=== PATIENT | male | born 1955 | race Caucasian/White ===

== ENCOUNTER 2019-12-23 11:33 | Outpatient (CLI) | payer MEDICARE, SELFPAY ==
--- NOTE | 2019-12-23 12:45 | USCV_ITS ---
HernandezTristian luke Age: 64 Gender: M : 1955 Exam Date: 12/23/2019 11:55 Ordering Phys: Ivette Acevedo MD ([email or web address]) Technologist: Frieda Fernandes Exam Location: [facility] [place] Indication: PVD HISTORY: Lower extremity pain. PROCEDURES: Venous duplex imaging was performed in bilateral lower extremities. The following venous structures were evaluated: common femoral vein, profunda vein, proximal portion of the greater saphenous vein, superficial femoral vein, and the popliteal vein. In addition, the posterior tibial and peroneal trunk were evaluated. Serial compression, augmentation maneuvers, and spectral Doppler flow evaluation were performed. FINDINGS: Normal 2-D Doppler and augmentation and compressibility throughout the lower extremity venous structures. Additional imaging through the proximal calf veins also reveals no thrombus. Limited evaluation of the greater saphenous vein is patent with no thrombus. CONCLUSIONS No DVT bilateral lower extremities. Dr. Salma Najera DO (Electronically Signed) Final Date: 23 Dec 2019 13:18 S
== END 2019-12-23 11:34 | disposition home or self-care (01) ==
LOC: RAD 11:38
PROVIDERS: PCP Family Medicine; Visit Provider Internal Medicine Cardiovascular Disease
DX: I73.9 Peripheral vascular disease, unspecified (principal)
CPT/HCPCS: 93970

== ENCOUNTER 2019-12-25 09:18 | Outpatient (CLI) | payer MEDICARE, SELFPAY ==
--- NOTE | 2019-12-25 09:34 | USCV_ITS ---
Tristian Hernandez Age: 64 Gender: M : 1955 Exam Date: 12/25/2019 09:32 Ordering Phys: Ivette Acevedo MD ([email or web address]) Technologist: Kat Sebastian Exam Location: [facility] [place] Indication: PVD RIGHT LEFT Brachial 160.00 mmHg Brachial 150.00 mmHg Pressure (mmHg) Waveform Pressure (mmHg) Waveform 88.00 [employer] 88.00 105.00 DPA 81.00 0.66 Ankle/Brachial Index 0.55 FINDINGS Abnormal resting ABIs bilaterally CONCLUSIONS Abnormal resting ABIs bilaterally, consistent with a moderately severe peripheral arterial disease No similar previous studies available for comparison Dr Kae Morales MD [facility] (Electronically Signed) Final Date: 25 Dec 2019 11:00 S
== END 2019-12-25 09:19 | disposition home or self-care (01) ==
LOC: RAD 09:21
PROVIDERS: PCP Family Medicine; Visit Provider Internal Medicine Cardiovascular Disease
DX: I73.9 Peripheral vascular disease, unspecified (principal)
CPT/HCPCS: 93922

== ENCOUNTER 2020-02-25 08:18 | Outpatient (CLI) | payer MEDICARE, SELFPAY ==
--- NOTE | 2020-02-25 09:00 | CT_ITS ---
WS: [id number] CT scan of the abdominal aorta, its branches and the arteries of the lower extremities.. Additional t wo-dimensional coronal and sagittal reconstruction was performed. MIP images were also performed. 02/09 Clinical Data: peripheral artery disease Comparison: Ankle brachial index, 12/25/2019. DLP: 1503.[address] scans at [facility] use at least one of these dose optimization techniques: automat ed exposure control; mA and/or kV adjustment per patient size (includes targeted exams where dose is matched to clinical indication); or iterative reconstruction. Findings: Abdominal aorta and its branches: The abdominal aorta is normal in size with no aneurysm. Atherosclerotic change of the wall is seen. T he renal arteries, celiac artery and superior mesenteric artery are visualized and without stenosis o r occlusion. The inferior mesenteric artery is also patent and visualized. The abdominal aorta branch es into the common iliac arteries and then into the internal and external iliac arteries. The common femoral arteries branch into the superficial and deep femoral arteries. Then bilaterally there is occ lusion of the superficial femoral arteries in their midportion. The popliteal arteries are reconstitu jeanette from collateral circulation. The arteries of the trifurcations are patent. There is flow in the a rteries of the legs seen down to the level of the ankles. Intra-abdominal and pelvic findings: The lungs show no nodules, masses or effusions. The liver shows a cyst in the posterior aspect of the right lobe, but otherwise is normal. The pancreas, spleen and adrenal glands are unremarkable. There are clips in the right upper quadrant from a cholecystectomy. The kidneys demonstrate equal bilatera l contrast excretion with no cysts, masses, hydronephrosis or renal calculi. The stomach, small bowel and colon are not remarkable. No appendicitis or diverticulitis is seen. There are numerous sigmoid diverticula present. No abscess, adenopathy, ascites, mass, obstruction or free air is seen. The blad herlinda is normal. The prostate is enlarged. There are small bilateral fat-containing inguinal hernias. T he bones of the lower thorax, lumbar spine, pelvis and hips show only moderate osteoarthritis of the lower thoracic vertebral bodies. CT/CT angio abd aorta runof [id number] Impression: 1. 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 2. Collateral circulation reconstitutes the popliteal arteries and the arteries of the legs. 3. Atherosclerotic change of the abdominal aorta. 4. Negative for acute intra-abdominal or pelvic abnormalities.
[2020-02-25 09:24] LABS: Blood Urea Nitrogen 4 mg/dL (8-23); Glomerular Filtration Rate 75.5 mL/min (90-130)
[2020-02-25] MEDS: iohexol 350 mg/mL 100 mL Btl IV (09:33)
== END 2020-02-25 08:19 | disposition home or self-care (01) ==
LOC: RADWPI 08:24
PROVIDERS: Family Provider Family Medicine; PCP Family Medicine; Visit Provider Internal Medicine Cardiovascular Disease
DX: I73.9 Peripheral vascular disease, unspecified (principal); I70.8 Atherosclerosis of other arteries
CPT/HCPCS: 75635; 82565; 84520; Q9967

== ENCOUNTER → 2020-03-16 10:14 | Outpatient (BNVA) | payer MEDICARE, SELFPAY | PROVIDERS: Family Provider Family Medicine; PCP Family Medicine; Visit Provider Internal Medicine | DX: Z01.812 Encounter for preprocedural laboratory examination (principal) | CPT/HCPCS: 87635 ==

== ENCOUNTER 2020-03-21 10:19 | Observation (INO) | payer MEDICARE, SELFPAY ==
[2020-03-16 15:11] LABS: Basophils # 0.1 10^3/uL (0.0-0.1); Basophils % 1.2 %; Eosinophils # 0.3 10^3/uL (0.0-0.8); Eosinophils % 2.5 %; Hematocrit 45.9 % (42.0-52.0); Hemoglobin 15.1 g/dL (11.7-16.6); Lymphocytes # 1.1 10^3/uL (0.8-4.8); Lymphocytes % 10.8 %; Mean Corpuscular HGB Conc 32.9 g/dL (30.0-36.0); Mean Corpuscular Volume 88.3 fL (80-94); Mean Platelet Volume 10.6 fL (7.4-10.4); Monocytes # 0.7 10^3/uL (0.2-0.9); Monocytes % 6.8 %; Neutrophils # 8.03 10^3/uL (1.8-7.7); Neutrophils % 78.5 %; Nucleated Red Blood Cells % 0 %; Platelet Count 253 10^3/cmm (130-400); Red Cell Distribution Width 13.5 % (12.1-15.1); White Blood Count 10.2 10^3/uL (4.0-10.0)
[2020-03-16 15:41] LABS: Anion Gap 12.6 (5-19); Blood Urea Nitrogen 5 mg/dL (8-23); Calcium 9.2 mg/dL (8.5-10.5); Carbon Dioxide 26 mmol/L (22-29); Chloride 106 mmol/L (98-107); Glomerular Filtration Rate 85.2 mL/min (90-130); Glucose 99 mg/dL (65-115); NT Pro B Type Natriuretic Pept 168 pg/mL (0-125); Osmolality Calculated 288 mOsm/kg (285-295); Potassium 3.6 mmol/L (3.5-5.1); Sodium 141 mmol/L (136-145)
[2020-03-21] VITALS (37 sets, daily range): BP systolic 109–192; BP diastolic 66–102; PULSE 40–108; RESP 16–24; TEMP 36.8–36.9; O2SAT 91–98; BMI 32.0
--- NOTE | 2020-03-21 07:44 | XACV_ITS ---
Wt: 101 kg BSA: 2.13 m2 Any Known Allergies: Penicillins Gender: Male : 1955 Exam Type: Invasive Peripheral Vascular Procedure(s): Procedure Description: Peripheral Cath Diagnostic Procedure Procedure Description: Abdominal aortic angiography Procedure Description: Lower extremities' angiography Procedure Description: Peripheral vascular Intervention Procedure Description: PV Balloon Procedure Description: PV Atherectomy Exam Priority: Routine Lower Extremity Interventional Findings Posterior tibial approach was adopted to intervene on the left SFA which remain unsuccessful mild perforation was noted at the knee level due to collateral perforation. We then adopted right common femoral approach with the help of Glidewire and seeker we were able to cross left SFA. Using 2.0 bur CSI atherectomy was performed in proximal to distal left SFA. Balloon angioplasty was performed using both drug-coated and [id number]-[id number] balloon in left SFA and left popliteal artery. Excellent angiographic result with good flow noted in left SFA tibioperoneal trunk along with two-vessel runoff below her left knee. For details please see main body of the note in which inventory and balloon caliber size were noted. Conclusions Reason and indication for peripheral angiogram lifestyle limiting claudication of both legs more on left than rightAbdominal aortogram was performed. Luminal irregularities without aneurysm was noted in the abdominal aorta. Left renal artery was well visualized without any significant stenosis right renal artery was not well-visualized . #1 Bilateral common iliac artery has luminal irregularity without significant stenosis#2 Bilateral external iliac artery has luminal irregularities without significant were not evaluated#3 Bilateral common femoral artery has luminal irregularities#4 Bilateral profundofemoral artery has luminal irregularity#5 Bilateral SFAs are chronically occluded from proximal to distal segment constitute from collaterals at the knee at popliteal artery on left side.#6 Right SFA is chronically occluded from proximal to distal along with right popliteal artery, one vessel run off PT noted on right side#7 Left tibioperoneal trunk has luminal irregularity, Right TPT not visualized#8 Two-vessel runoff was noted below the knee on left side . Recommendations 1-Return to inpatient for close monitoring and routine cath care2-Risk factor modification for secondary prevention3-Statin and aspirin 81 mg life--long, if tolerated4-Patient was pre-loaded with 300 mg of Plavix, continue Plavix 75mg p.o. daily for three months. Stage OSTEOPATHY DOCTOR of right SFA and popliteal artery.5-Continue optimal medical management6-Follow up with Dr. Acevedo in four weeks and your primary care in 10 days. Hemodynamic Data Phase:Rest AO : 74.0 mmHg / 49.0 mmHg ( 61.0 mmHg ) @ 4:16:00 AM 80.0 mmHg / 46.0 mmHg ( 61.0 mmHg ) @ 4:54:00 AM Access Site Site: Left Popliteal Sheath Size: 6 Fr Hemost... Method: TR Band Hemost... Success: Successful Site: Right Femoral artery Sheath Size: 6 Fr Hemost... Method: Suture Hemost... Success: Successful Procedure Details Findings Procedure Consent Obtained. Pre-Procedure Time Out. Identified patient by full name and date of as verbalized by the patient/guarantor. Does the consent match the physician's order: Yes. Accurate & Complete Informed Consent: Yes. Inpatient/Outpatient History & Physical on Chart: Yes. If H&P is completed, is and addenduem needed: N/A; If yes, is the addendum complete: N/A. Visualize and Verify Site with Patient/Guarantor: N/A. Relevant Radiology Images available: Yes. Pre-op teaching completed and patient verbalized understanding. The risks, benefits, and alternatives of sedation and/or procedure were discussed by physician. The patient agrees to continue. Procedure started. Correct patient, site and procedure confirmed by cath team. PERRLA. Strong, equal hand verifier operator bilaterally. Lungs clear x 5 lobes. IV Fluids: 0.9% NaCl at KVO. 0 mL infused prior to labor expediter. Oxygen started at 2liters/min via nasal canula. left PT was prepped with chloroprep then draped in the usual sterile fashion. Physician notified. Equipment: 6F - Femoral. Cardiac Cath Pack. ACIST Manifold Kit Model BT 2000. Heparinized Saline (2 units/mL), 1000 mL bag. Kit, Micropuncture. Physician arrived. Baseline sample Acquired. HR: 52 BPM. Physician scrubbed in. Time out performed with cath team. Lidocaine 1% infiltrated to the left PT. Arterial access obtained with micropuncture set. glidewire inserted. seeker in over glidewire. wire out. Hand injection performed. glideiwre inserted. wire out. right groin was prepped with chloroprep then draped in the usual sterile fashion. Lidocaine 1% infiltrated to the right groin. A 5FrFr UF catheter in over wire. Abdominal aortogram performed in AP @ 10 mL/sec for a total of 30 mL. Wrist reminders placed bilaterally on patient. glide wire inserted. catheter removed over glidewire. 6FR short sheath exchanged for a 6FR long sheath. left leg runoff 10ml/sec for a total of 30ml. A TR Band was successful obtaining hemostatsis at the Left Popliteal insertion site. TR band placed. Hemostasis obtained. Anesthesiologist Paged. seeker inserted over glidewire. wire removed. Hand injection performed. Side port of sheath attached to Normal Saline flush at KVO to maintain patency. seeker inserted. viper wire inserted. seeker removed. Anesthesia arrived to sedate patient.. left SFA orbital atherectomy performed. bur removed. viper wire out. Inflation number : 1 A AB ARMADA 35 OTW [id number] was prepped and advanced across the Superficial Femoral, Left , then inflated to 10 HONEY for 1:01 seconds. Inflation number: 2 The AB ARMADA 35 OTW [id number] was reinflated across the Superficial Femoral, Left, to 10 HONEY for 1:03 seconds. Inflation number: 3 The AB ARMADA 35 OTW [id number] was reinflated across the Superficial Femoral, Left, to 10 HONEY for 1:00 seconds. Inflation number: 4 The AB ARMADA 35 OTW [id number] was reinflated across the Superficial Femoral, Left, to 10 HONEY for 1:00 seconds. Inflation number: 5 The AB ARMADA 35 OTW [id number] was reinflated across the Superficial Femoral, Left, to 10 HONEY for 1:04 seconds. Balloon out. Post intervention angiography performed to check result. Inflation number : 6 A BARD Lutonix 7.0x60mm drug coated balloon was prepped and advanced across the Superficial Femoral, Left , then inflated to 10 HONEY for 1:00 seconds. Inflation number: 7 The BARD Lutonix 7.0x60mm drug coated balloon was reinflated across the Superficial Femoral, Left, to 10 HONEY for 1:00 seconds. Inflation number: 8 The BARD Lutonix 7.0x60mm drug coated balloon was reinflated across the Superficial Femoral, Left, to 7 HONEY for 1:03 seconds. Inflation number : 9 A BARD Lutonix 7.0x40mm drug coated balloon was prepped and advanced across the Superficial Femoral, Left , then inflated to 7 HONEY for 0:36 seconds. Inflation number: 10 The BARD Lutonix 7.0x40mm drug coated balloon was reinflated across the Superficial Femoral, Left, to 7 HONEY for 2:06 seconds. 6FR long sheath exchanged for a 6FR short sheath. right leg runoff 10ml/sec for a total of 30ml. A Suture was successful obtaining hemostatsis at the Right Femoral artery insertion site. Sheath(s) sutured into position with 2-0 silk and sterile 4x4's and Op-site applied over the site. No oozing or signs and symptoms of hematoma noted. Post Procedure: Pulses reassessed and unchanged. PERRLA. Strong, equal hand verifier operator bilaterally. No VTE prophylaxis required. Medication's Wasted: Other = versed 1 mg. Medication's Wasted: Other = fentanyl 50 mcg. Total IV fluids: 131 mL. Fluoro: 28:08. Contrast type used: Visipaque 320 mgI/mL, 500 mL bottle. [id number]. Post-op diagnosis: severe PAD /Post antherectomy. Complications: none. Estimated blood loss: 5mL-10mL. Procedure completed. Patient transferred by bed to 1st floor. Vital chart was stopped. Procedure Medications Start: 8:34 AM Stop: 8:34 AM Medication: Versed Amount: 1 mg Route: I.V. Start: 8:34 AM Stop: 8:34 AM Medication: Fentanyl Amount: 50 mcg Route: I.V. Start: 8:39 AM Stop: 8:39 AM Medication: Versed Amount: 1 mg Route: I.V. Start: 8:39 AM Stop: 8:39 AM Medication: Fentanyl Amount: 50 mcg Route: I.V. Start: 8:46 AM Stop: 8:46 AM Medication: Versed Amount: 1 mg Route: I.V. Start: 8:47 AM Stop: 8:47 AM Medication: Fentanyl Amount: 50 mcg Route: I.V. Start: 8:53 AM Stop: 8:53 AM Medication: Versed Amount: 1 mg Route: I.V. Start: 8:53 AM Stop: 8:53 AM Medication: Fentanyl Amount: 50 mcg Route: I.V. Start: 9:04 AM Stop: 9:04 AM Medication: Versed Amount: 1 mg Route: I.V. Start: 9:04 AM Stop: 9:04 AM Medication: Fentanyl Amount: 50 mcg Route: I.V. Start: 9:27 AM Stop: 9:27 AM Medication: Heparin Amount: 5000 units Route: I.V. Start: 10:11 AM Stop: 10:11 AM Medication: Nitrogylcerin Amount: 400 mcg Route: I.A. I, the attending physician, have reviewed and verified all procedure medications. Yes, all medications given per verbal order History/Risk Factors Hypertension: Yes Dyslipidemia: Yes Peripheral Arterial Disease (PAD): Yes Myocardial Infarction (AZ): No Obesity: No Renal Disease: No Tobacco Use: Former Prior Interventions PCI: No CABG: No Valve Surgery: No Report Signatures Finalized by:Ivette Acevedo MD on 04/02/2020 2:07:14 PM
--- NOTE | 2020-03-21 08:18 | USCV_ITS ---
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 Acevedo Monophasic low velocity waveform in the posterior tibial artery Conclusions The posterior tibial artery appears to be patent with sluggish blood flow Dr Kae Morales MD FAC (Electronically Signed) Final Date: 22 March 2020 22:57 S
[2020-03-21] MEDS: diphenhydrAMINE 50 mg Capsule PO (08:20)
--- NOTE | 2020-03-21 08:30 | W.PM.OPSUD ---
Surgery/Procedure H&P Update DATE OF PROCEDURE: March 21, 2020 DATE H&P PERFORMED: 11/10/19 H&P UPDATE INFORMATION: I have reviewed H&P completed within last 30 days and I have examined patient prior to procedure CHANGES TO PREVIOUS DOCUMENTATION: Worsening of lifestyle limiting claudication PREOP DIAGNOSIS: Severe peripheral vascular disease with history of stent in the past PLANNED PROCEDURE: Operation Date: 03/21/20 08:30 Proposed Procedures p Peripheral Diagnostic(Not Applicable) - Ivette Acevedo MD PATIENT REASSESSED PRIOR TO SEDATION, WITH NO CHANGE NOTED: Yes PHYSICAL EXAM: alert, oriented x 3, clear to auscultation bilaterally and regular rate & rhythm AIRWAY EVAL/ANESTHESIA PLAN: ASA II
--- NOTE | 2020-03-21 09:47 | ANES.PREANE2 ---
Pre-Anesthetic Assessment Pre-Anesthetic Assessment: Height/Weight: Height 1.78 m Weight 101.151 kg Temp Pulse Resp BP Pulse Ox 98.2 F 64 16 172/82 98 03/21/20 08:17 03/21/20 08:17 03/21/20 08:17 03/21/20 08:17 03/21/20 08:17 Preop Diagnosis: Severe peripheral vascular disease with history of stent in the past Proposed Procedure: Operation Date: 03/21/20 08:30 Proposed Procedures p Peripheral Diagnostic(Not Applicable) - Ivette Acevedo MD Social: Packs per day: Former smoker Exam: Additional Exam Findings (including area of procedure): Sedated Airway: Cervical ROM: WNL MP: 2 History/ROS: No significant history except as noted and No significant complaints Pulmonary: Pulmonary: COPD, GRIDER and SOB CV/HEM: CV/HEM: Angina (Stable), HTN and PVD : : None reported Hepatic: Hepatic: None reported GI: GI: None reported Metabolic: Metabolic: Hyperlipidemia Musc/skel: Musc/skel: None reported Neuropsych: Neuropsych: Anxiety Anesthetic Plan: ASA status: 3E Anesthesia: Anesthesia Evaluation and MAC Risk of > 500 ml blood loss (7ml/kg in children): No PFSH Anesthesia PFSH: Medical History (Updated 11/10/19 @ 18:48 by Ivette Acevedo MD) HTN (hypertension) Varicose veins of anus or rectum Social History Smoking and tobacco status: former smoker Data Anesthesia CBC & Chem 7: 03/16/20 14:40 03/16/20 14:40 Cardiac Studies: No Data to Display
--- NOTE | 2020-03-21 10:30 | PC.NURSE ---
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
[2020-03-21] MEDS: sodium chloride 0.9% 1,000 ML 100 ML IV (10:40)
[2020-03-21] MEDS: ALPRAZolam 0.25 mg Tablet PO (10:44)
[2020-03-21] MEDS: clopidogrel 300 mg Tablet PO (10:44)
[2020-03-21] MEDS: morphine 4 mg/mL SDV 1 mL IVP ×3 (11:27→20:31)
--- NOTE | 2020-03-21 11:32 | PC.NURSE ---
Dr. Acevedo at bedside assessing patient. Patient in alot of pain, verbal orders given from Dr. Acevedo for one time order of morphine 4mg IVP now.
--- NOTE | 2020-03-21 11:34 | PC.NURSE ---
called Dr macias to bedside for patient continued pain and concerns of coolness to extremity pulses good and can wiggle toes however calf has increased swelling Dr macias instructions for CTA and other providers consulted CTA canceled and new plan discussed with patient
--- NOTE | 2020-03-21 11:40 | PC.NURSE ---
Dr. Acevedo assessing patient for severe pain. Dr. Acevedo gave verbal orders to give morphine 4mg every 2 hours PRN for pain control.
--- NOTE | 2020-03-21 12:05 | PC.NURSE ---
Patient resting well at this time after IVP morphine Right leg measures 35.6 CM in diameter at center calf Left leg measures 40.6 CM in diameter at center calf
[2020-03-21 12:46] LABS: Partial Thromboplastin Time 130.9 SECONDS (23.9-36.7)
--- NOTE | 2020-03-21 13:02 | PC.NURSE ---
PTT remains at 130 will recheck ptt in 2 hours and pull sheath when ptt is =>45 per orders
--- NOTE | 2020-03-21 13:21 | PC.NURSE ---
patient continues to have sensation in toes and is able to wiggle all toes. patient pain is mor controlled at this time patient is resting well pedal pulse palpated and strong
[2020-03-21] MEDS: albuterol 8 gm MDI 2 PUFF INHALATION (14:06)
[2020-03-21 14:48] LABS: Partial Thromboplastin Time 28.3 SECONDS (23.9-36.7)
--- NOTE | 2020-03-21 16:16 | PC.NURSE ---
Sheath removed after PTT Results =>45 at this time. pressure bag removed sheath pull pressure held for 20 min until homeostasis achieved patient tolerated well pre medicated for pain. patient left LE swelling is unchanged patient has had no loss in sensation or pulse patient reports pain it tolerable
[2020-03-21] MEDS: HYDROcodone-acetaminophen 5-325 mg Tablet 1 TAB PO (19:09)
--- NOTE | 2020-03-21 19:22 | PC.NURSE ---
Patient resting in bed. Campbell wrap to Left leg. Leg is tender to touch and slightly swollen. Patient given a pain pill. pulses are dopplarable and color is good. Patient can feel me touching both legs and can move his toes. Will continue to monitor. R leg dressing is clean dry and intact no hematoma noted.
--- NOTE | 2020-03-21 21:08 | PC.NURSE ---
Dr. Acevedo came by to access patient and look at his Left Leg. Asked if his fluids needed to be continuous or not. Verbal orders received to D/C fluids and finish the one bag. Continue to do neurovascular checks every 3 to 4 hours. Will continue to alternate heat pack as tolerated. Will continue to monitor.
--- NOTE | 2020-03-21 22:45 | PC.NURSE ---
Patient ambulated post cath, Pulses are dopparable, patient tolerated well. Site is clean dry and intact. L leg patient has sensation, can wiggle toes and good pulses. Will continue to monitor.
[2020-03-22] MEDS: HYDROcodone-acetaminophen 5-325 mg Tablet 1 TAB PO (01:30)
[2020-03-22 04:35] VITALS: BP 139/64; PULSE 56; RESP 16; TEMP 36.6; O2SAT 93
[2020-03-22 04:51] VITALS: RESP 16; O2SAT 93
[2020-03-22] MEDS: morphine 4 mg/mL SDV 1 mL IVP (04:51)
[2020-03-22 05:01] LABS: Basophils # 0.1 10^3/uL (0.0-0.1); Basophils % 0.7 %; Eosinophils # 0.3 10^3/uL (0.0-0.8); Eosinophils % 2.8 %; Hematocrit 41.5 % (42.0-52.0); Hemoglobin 13.3 g/dL (11.7-16.6); Lymphocytes # 1.1 10^3/uL (0.8-4.8); Lymphocytes % 9.5 %; Mean Corpuscular Hemoglobin 28.7 pg (28.0-34.0); Mean Corpuscular Volume 89.6 fL (80-94); Mean Platelet Volume 10.9 fL (7.4-10.4); Monocytes # 0.7 10^3/uL (0.2-0.9); Monocytes % 6.2 %; Neutrophils # 9.22 10^3/uL (1.8-7.7); Neutrophils % 80.5 %; Nucleated Red Blood Cells % 0 %; Platelet Count 210 10^3/cmm (130-400); Red Blood Count 4.63 10^6/uL (4.1-5.3); Red Cell Distribution Width 13.6 % (12.1-15.1); White Blood Count 11.5 10^3/uL (4.0-10.0)
[2020-03-22 05:28] LABS: Anion Gap 11.7 (5-19); Blood Urea Nitrogen 7 mg/dL (8-23); Calcium 8.4 mg/dL (8.5-10.5); Carbon Dioxide 25 mmol/L (22-29); Chloride 109 mmol/L (98-107); Creatinine Clr Calc Pharmacy 100.1242; Glomerular Filtration Rate 85.2 mL/min (90-130); Glucose 98 mg/dL (65-115); Osmolality Calculated 290 mOsm/kg (285-295); Potassium 3.7 mmol/L (3.5-5.1); Sodium 142 mmol/L (136-145)
[2020-03-22 07:05] VITALS: BP 137/70; PULSE 55; RESP 18; TEMP 36.7; O2SAT 92
[2020-03-22] MEDS: atenolol 50 mg Tablet 25 MG PO (08:02)
[2020-03-22] MEDS: aspirin 81 mg EC Tablet PO (08:02)
[2020-03-22] MEDS: atorvastatin 40 mg Tablet 20 MG PO (08:02)
[2020-03-22] MEDS: levothyroxine 50 mcg Tablet PO (08:02)
[2020-03-22] MEDS: isosorbide mononitrate ER 30 mg Tablet PO (08:03)
[2020-03-22 10:55] VITALS: BP 127/67; PULSE 52; RESP 18; TEMP 36.6; O2SAT 92
--- NOTE | 2020-03-22 11:14 | PC.CHAP ---
Pastoral Care Encounter/Spiritual Assessment Type of Contact [] Declined merchandiser visit [] Patient/Family/Request visit [] Outpatient visit [] Follow-up visit [] Physician referral [] Code/Alert [x] Routine visit [] Staff referral [] Actively dying [] Patient sleeping [] Family support [] [] Out of room [] Palliative care [] [x] Receiving care in room [] Pre-surgical visit [] Trauma [] Long length of stay [] ICU visit [] Other: Relational/Emotional Strength [x] Patient feels connected with others/family/visitors/staff [] Distress [] Loneliness/isolation [] Abandonment Spirituality of Patient [] Person of Brook [] Attends Faith of their [place] [] Believes in Prayer [] Reads Bible or Methodist materials [] There are Spiritual issues to be addressed Outside Installer Apprentice Interventions [] Prayer [] Active listening [] Non-anxious presence [] Spiritual/emotional support [] Crisis/trauma care [] Spiritual counseling [] Bereavement support [] Provided bereavement packet [] Provided Bible/devotional materials [] Provided toy/stuffed animal, coloring book to patient or family member [] Provided Communion [] Anointing/[place] [] Salvation [] Completed spiritual assessment [] Other: Impact on Illness or Injury [] Angry [] Fearful [] Anxious [] Often cries [] Exhaustion [] Unable to work [] Unable to attend jewish [] Unable to walk/stand [] Unable to read [] Unable to drive [] Unable to eat/drink [] Unable to sleep [] Unable to be with family [] Patient intubated [] Other: Summary Anogoigram Hyper tenion, doesn't know about tests waiting see the results, has a good attitude feels good Time spent with patient 10 mins
--- NOTE | 2020-03-22 12:03 | PC.NURSE ---
Dr macias at bedside for discussion of POC, Plan for discharge today.
--- NOTE | 2020-03-22 13:15 | P.DS_ITS ---
Discharge Providers Date of Admission: 03/21/20 10:19 Date of Discharge: March 22, 2020 Attending Provider at Admission: Ivette Acevedo MD Attending Provider at Discharge: Ivette Acevedo MD Primary Care Provider: Ronda Dowell MD Diagnoses at Discharge Other Information Additional DC diagnoses/information: Lifestyle limiting claudication of both legs. Status post CSI atherectomy and balloon angioplasty of left SFA Reason for Visit Reason for Visit: peripheral anogigram Hospital Course Discharge Summary: Pleasant 64-year-old male past medical history significant for severe peripheral vascular disease history of multiple stents and both lower extremities at an outside hospital in 2017 for worsening of lifestyle limiting claudication and after failing medical management with cilostazol and exercise patient underwent peripheral angiogram he was found to have chronically occluded proximal to distal left SFA. CSI atherectomy and balloon angioplasty with [id number] and drug-coated balloon were performed. Post intervention patient complained of moderate pain in the lower leg with some stiffness question was regarding compartment syndrome due to mild perforation noted however multiple images were taken which did not show any ari further extravasation. Postop course remains uncomplicated. Patient remains to have good anterior posterior tibial pulses without any neuro or motor deficit. This morning he is walking around without any problem. He will be discharged home. He will be brought back in 2 to 3 weeks for right SFA intervention for chronic occlusion. Physical Exam Narrative: EXAM NARRATIVE: GENERAL: Patient is alert, awake and oriented x3. NECK: No jugular vein distension. HEENT: No cyanosis. No icterus. No pallor. HEART: Regular S1 and S2. No murmur, rub or gallop. LUNGS: Clear to auscultate bilaterally. ABDOMEN: Soft, nontender and nondistended. Positive bowel sounds. No guarding, rebound or tenderness. CENTRAL NERVOUS SYSTEM: Grossly nonfocal. EXTREMITIES: Lower extremities without edema bilaterally. Discharge Data Data Completed and Pending: Pending at discharge Category Date Time Status PIPE LINER request for service Routin e Exams 03/21/20 07:44 Taken US guide vascular access [CV guide vascular access Ultrasound 03/21/20 08:18 Taken [id number]] Routine Labs from last 24 hours 03/22/20 03/22/20 03/21/20 04:00 04:00 14:28 WBC 11.5 H RBC 4.63 Hgb 13.3 Hct 41.5 L MCV 89.6 MCH 28.7 MCHC 32.0 RDW 13.6 Plt Count 210 MPV 10.9 H Neut % (Auto) 80.5 Lymph % (Auto) 9.5 Isabella % (Auto) 6.2 Eos % (Auto) 2.8 Baso % (Auto) 0.7 Neut # (Auto) 9.22 H Lymph # (Auto) 1.1 Isabella # (Auto) 0.7 Eos # (Auto) 0.3 Baso # (Auto) 0.1 Nucleated RBC % (a uto) 0 Nucleated RBCs # 0.0 APTT 28.3 D Sodium 142 Potassium 3.7 Chloride 109 H Carbon Dioxide 25 Anion Gap 11.7 BUN 7 L Creatinine 0.9 GFR Calculation 85.2 L Glucose 98 Calculated Osmolal ity 290 Calcium 8.4 L Vitals: Last Vital Signs Temp 97.9 F 03/22/20 10:55 Pulse 52 L 03/22/20 10:55 Resp 18 03/22/20 10:55 BP 127/67 03/22/20 10:55 Pulse Ox 92 03/22/20 10:55 Discharge Plan Discharge Patient Disposition: Home Condition: Stable Prescriptions: New clopidogrel 75 mg tablet 75 mg PO DAILY Qty: 90 RF: 0 Continued levothyroxine 50 mcg capsule 50 mcg PO DAILY RF: 0 aspirin [Adult Low Dose Aspirin] 81 mg tablet,delayed release (DR/EC) 81 mg PO DAILY RF: 0 atenolol 25 mg tablet 25 mg PO DAILY RF: 0 fluticasone propionate [Flonase Allergy Relief] 50 mcg/actuation spray,suspension 1 spray INTRANASAL DAILY PRN (Reason: Allergy Symptoms) RF: 0 albuterol sulfate [ProAir HFA] 90 mcg/actuation HFA aerosol inhaler 2 puff INHALATION Q6H PRN (Reason: Shortness Of Breath) RF: 0 isosorbide mononitrate 30 mg tablet extended release 24 hr 30 mg PO DAILY Qty: 90 RF: 3 amlodipine 5 mg tablet 5 mg PO DAILY Qty: 90 RF: 3 atorvastatin 20 mg tablet 20 mg PO DAILY Qty: 90 RF: 3 Discontinued cilostazol 50 mg tablet 50 mg PO BID RF: 0 Discharge Orders: Discharge Order (Routine); Ordered 03/22/20 Ordered By: Ivette Acevedo Referrals: Ivette Acevedo MD [Physician] - (You have an follow-up appointment with Dr. Acevedo on Saturday at 4:15p.m. If you have any questions or need to reschedule. Please call ) Jessica Holden FNP [Nurse Practitioner] - (You have an follow-up appointment with Jessica Holden on at 9:30a.m. If you have any questions or need to reschedule. Please call ) Discharge Diet: Cardiac Discharge Activity: Increase activity as tolerated Patient Instructions: Clopidogrel (By mouth), Peripheral Vascular Stent Placement (DC), Hypertension (DC), Peripheral Vascular Angioplasty (DC), Post Angiogram Home Care Instructions Activity Restrictions/Additional Instructions: Follow-up with Jessica Holden in 7 days cardiology nurse practitioner. Please schedule patient for peripheral angiogram of right lower extremity for lifestyle limiting claudication and severe peripheral vascular disease of chronically occluded right SFA. Patient has failed conservative management. Discharge Attestations Time Spent in Discharge Care*: greater than 30 min Specific Discharge Activities: Specific discharge activities: educating patient Quality Metrics Clinical Quality Measures During this hospital stay, did patient experience: None Coding Level of Care Code Established Pt Acute Gyroscopic Instrument Tester for Sukhdeepg Fwd Patient Type Established History Expanded Problem Focused Exam Expanded Problem Focused Medical Decision Making Moderate Complexity
[2020-03-22 13:23] VITALS: BP 127/67; PULSE 52; RESP 18; TEMP 36.6; O2SAT 92
--- NOTE | 2020-03-22 14:34 | PC.NURSE ---
patient discharged home; discharge instructions given and explained to patient as well as new medications and side effects. patient verbalized understanding. Patient provided with follow up appointments. Iv discontinued cath intact min bleeding noted, dressing placed. Patient assisted to wheel chair and accompanied to private vehicle drove by patients sister. All belongings as well as discharge instructions in hand. patient alert and stable condition.
--- NOTE | 2020-03-23 12:14 | PC.RESP ---
Pulmonary Rehab information sent to patient.
--- NOTE | 2020-05-04 10:04 | P.HP_ITS ---
Providers/Chief Complaint Admitting Physician: Ivette Acevedo MD Primary Care Provider: Ronda Dowell MD Chief Complaint: peripheral anogigram History of Present Illness Pleasant 64-year-old male past medical history significant for severe peripheral vascular disease history of multiple stents in both lower extremities at an outside hospital in 2016 for worsening of lifestyle limiting claudication and after failing medical management with cilostazol and exercise underwent peripheral angiogram in the month of March 2020, he was found to have chronically occluded proximal to distal left SFA. CSI atherectomy and balloon angioplasty with [id number] and drug-coated balloon were performed, excellent angiographic and clinical result was obtained. During the same ang iogram it was learned that patient has chronically occluded proximal to distal right SFA and popliteal artery with one-vessel runoff below the right knee. Since patient has failed conservative management including cilostazol exercise and optimization of medicine with risk factor and because of the fact he continues to have lifestyle limiting claudication of the right leg as well he would like to proceed with percutaneous angioplasty since he is feeling much better and can walk long ways without any claudication with his left leg. Today he is here for the procedure. Patient understand all risk benefit and alternative for the procedure. I have personally explained warning from the FDA regarding drug-coated balloon with increased mortality. Patient understands it completely and would like to proceed with it. He has given me permission if required I can use drug-coated balloon. Denies fever chills nausea vomiting diarrhea. Covid test is negative. Review of Systems All/Imm: Denies: acute wheezing Medications/Allergies Home Medications Medication Instructions Recorded Confirmed Last Taken Type albuterol sulfate 90 mcg/actuation 2 puff INHALATION Q6H PRN 11/10/19 05/12/20 Unknown History aerosol inhaler aspirin 81 mg tablet,delayed 81 mg PO DAILY 11/10/19 05/12/20 05/04/20 07:00 History release atenolol 25 mg tablet 25 mg PO DAILY 11/10/19 05/12/20 05/03/20 22:00 History fluticasone propionate 50 1 spray INTRANASAL DAILY PRN 11/10/19 05/12/20 05/04/20 07:00 History mcg/actuation nasal spray,suspension levothyroxine 50 mcg capsule 50 mcg PO DAILY 11/10/19 05/12/20 05/04/20 07:00 History amlodipine 5 mg tablet 5 mg PO DAILY #90 tab 02/15/20 05/12/20 05/04/20 07:00 Rx atorvastatin 20 mg tablet 20 mg PO DAILY #90 tab 03/07/20 05/12/20 05/04/20 07:00 Rx clopidogrel 75 mg PO DAILY #90 tab 03/22/20 05/12/20 05/04/20 07:00 Rx isosorbide mononitrate 30 mg 30 mg PO DAILY #90 tab 03/25/20 05/12/20 05/04/20 07:00 Rx tablet,extended release 24 hr furosemide 20 mg tablet 20 mg PO DAILY #90 tab 04/04/20 05/12/20 05/04/20 07:00 Rx Allergies Allergy/AdvReac Type Severity Reaction Status Date / Time Penicillins Allergy UNK Verified 05/12/20 13:04 PFSH Acute PFSH: Medical History Asthma COPD (chronic obstructive pulmonary disease) History of skin cancer HTN (hypertension) Peripheral Vascular Disease Varicose veins of anus or rectum Surgical History S/P appendectomy S/P cholecystectomy S/P knee surgery Left Social History Smoking and tobacco status: former smoker Vitals/I&O/Wt Last Vital Signs Temp 97.9 F 03/22/20 13:23 Pulse 52 L 03/22/20 13:23 Resp 18 03/22/20 13:23 BP 127/67 03/22/20 13:23 Pulse Ox 92 03/22/20 13:23 Physical Exam Narrative: EXAM NARRATIVE: GENERAL: Patient is alert, awake and oriented x3. NECK: No jugular vein distension. HEENT: No cyanosis. No icterus. No pallor. HEART: Regular S1 and S2. No murmur, rub or gallop. LUNGS: Clear to auscultate bilaterally. ABDOMEN: Soft, nontender and nondistended. Positive bowel sounds. No guarding, rebound or tenderness. CENTRAL NERVOUS SYSTEM: Grossly nonfocal. EXTREMITIES: Lower extremities without edema bilaterally. No pulse on the right good dopplerable on the left Const: COMMON NORMALS: alert Resp: COMMON NORMALS: clear to auscultation bilaterally AUSCULTATION: clear to auscultation bilaterally Neuro: SENSORIUM/ORIENTATION: Yes alert Data : 03/22/20 04:00 03/22/20 04:00 A&P Assessment and plan (1) Claudication of lower extremity with history of revascularization: Due to lifestyle limiting claudication and failure of medical management we will proceed with peripheral angiogram and intervention if indicated. All risk benefit and alternative for the procedure has been explained by myself to the patient. He agrees with it Status: Acute (2) Peripheral Vascular Disease: Patient has bilateral peripheral arterial disease managed with the medicine lifestyle modification and combination of intervention. Status: Acute (3) HTN (hypertension): Well-controlled. Continue current regimen. Status: Acute Qualifiers: Hypertension type: essential hypertension Qualified Code(s): I10 - Essential (primary) hypertension Attestations Medical Necessity Statement*: I am not expecting his stay to cross more than 2 midnights. Patient will be outpatient in bed Coding Level of Care Code Established Pt Acute Professor Of Literacy for g Fwd Patient Type Established Exam Expanded Problem Focused Medical Decision Making Moderate Complexity Diagnoses Claudication of lower extremity with history of revascularization I73.9; Z98.890 Peripheral Vascular Disease I73.9 HTN (hypertension) I10 Hypertension type: essential hypertension
--- NOTE | 2020-05-04 10:24 | W.PM.OPSUD ---
Surgery/Procedure H&P Update DATE OF PROCEDURE: May 04, 2020 DATE H&P PERFORMED: 05/04/20 H&P UPDATE INFORMATION: I have examined patient prior to procedure and No changes to prior documentation CHANGES TO PREVIOUS DOCUMENTATION: Lifestyle limiting claudication of the right leg PREOP DIAGNOSIS: Severe peripheral vascular disease with history of stent in the past PLANNED PROCEDURE: Operation Date: 03/21/20 08:30 Proposed Procedures p Peripheral Diagnostic(Not Applicable) - Ivette Acevedo MD PATIENT REASSESSED PRIOR TO SEDATION, WITH NO CHANGE NOTED: Yes PHYSICAL EXAM: alert, oriented x 3 and clear to auscultation bilaterally AIRWAY EVAL/ANESTHESIA PLAN: ASA II, Risks, benefits & alternatives of sedation and/or procedure discussed and Patient agrees to continue as planned
--- NOTE | 2020-05-12 19:31 | W.PM.OPSFHP ---
Same Day Surgery H&P Indication for Procedure/HPI DATE OF PROCEDURE: 11/10/19 CHIEF COMPLAINT/INDICATIONFOR SURGICAL PROCEDURE: Lifestyle limiting claudication despite of medical therapy PREOP DIAGNOSIS: Severe peripheral vascular disease with history of stent in the past lifestyle limiting claudication PLANNED PROCEDRUE: Operation Date: 03/21/20 08:30 Proposed Procedures p Peripheral Diagnostic(Not Applicable) - Ivette Acevedo MD Pleasant 64-year-old male past medical history significant for severe peripheral vascular disease history of multiple stents and both lower extremities at an outside hospital in 2017 for worsening of lifestyle limiting claudication and after failing medical management with cilostazol and exercise patient he is here for peripheral angiogram and percutaneous angioplasty if indicated of left leg through right groin approach. Patient has been explained all risk benefit and alternative for the procedure he understand the risk of anesthesia conscious sedation drug-coated balloon which has been explained in detail by myself regarding FDA warning of increased morbidity in that group. He would like to proceed with it. Medications/Allergies* Home Medications Medication Instructions Recorded Confirmed Type albuterol sulfate 90 mcg/actuation 2 puff INHALATION Q6H PRN 11/10/19 05/12/20 History aerosol inhaler aspirin 81 mg tablet,delayed 81 mg PO DAILY 11/10/19 05/12/20 History release atenolol 25 mg tablet 25 mg PO DAILY 11/10/19 05/12/20 History fluticasone propionate 50 1 spray INTRANASAL DAILY PRN 11/10/19 05/12/20 History mcg/actuation nasal spray,suspension levothyroxine 50 mcg capsule 50 mcg PO DAILY 11/10/19 05/12/20 History Allergies/Adverse Reactions Allergy/AdvReac Type Severity Reaction Status Date / Time Penicillins Allergy UNK Verified 05/12/20 13:04 Pertinent History/Comorbid Conditions* Medical History (Updated 05/04/20 @ 10:22 by Ivette Acevedo MD) Asthma Claudication of lower extremity with history of revascularization COPD (chronic obstructive pulmonary disease) History of skin cancer HTN (hypertension) Peripheral Vascular Disease Varicose veins of anus or rectum Surgical History (Updated 03/28/20 @ 14:45 by HIEN Sawant) S/P appendectomy S/P cholecystectomy S/P knee surgery Left Social History Smoking and tobacco status: former smoker Pertinent Exam Findings alert, oriented x 3, clear to auscultation bilaterally and regular rate & rhythm Conscious Sedation Assessment PATIENT ASSESSED PRIOR TO SEDATION, WITH NO CHANGE NOTED: Yes AIRWAY EVAL/ANESTHESIA PLAN: ASA II Recommendations Surgery/Procedure today Coding Level of Care Code Acute Manager Of Internal Audit for Manjinder Sanford
== END 2020-03-22 14:13 | disposition home or self-care (01) ==
LOC: CSU 03-22 10:29
PROVIDERS: Admitting Provider Internal Medicine Cardiovascular Disease; Family Provider Family Medicine; PCP Family Medicine; Visit Provider Internal Medicine Cardiovascular Disease
DX: I73.9 Peripheral vascular disease, unspecified (principal); J44.9 Chronic obstructive pulmonary disease, unspecified; I10 Essential (primary) hypertension; Z79.82 Long term (current) use of aspirin; Z87.891 Personal history of nicotine dependence
CPT/HCPCS: 12345; 36415; 37225; 75625; 75716; 76937; 80048; 83880; 85025; 85610; 85730; 94640; 96360; 96361; 96375; C1724; C1725; C1769; C1887; C1894; C2623; G0378; J1644; J2250; J2270; J3010; J3490; J3535; J7030; Q0163; Q9967

== ENCOUNTER → 2020-03-28 14:03 | Outpatient (BNVA) | payer MEDICARE, SELFPAY | PROVIDERS: Family Provider Family Medicine; PCP Family Medicine; Visit Provider Nurse Practitioner Family | DX: I73.9 Peripheral vascular disease, unspecified (principal); Z87.891 Personal history of nicotine dependence | CPT/HCPCS: 80048 ==

== ENCOUNTER → 2020-05-02 13:02 | Outpatient (BNVA) | payer MEDICARE, SELFPAY | PROVIDERS: Family Provider Family Medicine; PCP Family Medicine; Visit Provider Internal Medicine Cardiovascular Disease | DX: Z20.828 Contact with and (suspected) exposure to other viral communicable diseases (principal) | CPT/HCPCS: 87635 ==

== ENCOUNTER 2020-05-04 13:31 | Observation (INO) | payer MEDICARE, SELFPAY ==
[2020-05-03 09:08] VITALS: BMI 30.1
[2020-05-04] VITALS (41 sets, daily range): BP systolic 110–188; BP diastolic 59–115; PULSE 40–65; RESP 10–22; TEMP 36.6–36.8; O2SAT 98–100
--- NOTE | 2020-05-04 09:00 | XACV_ITS ---
Wt: 95 kg BSA: 2.19 m2 Any Known Allergies: Penicillins Gender: Male : 1955 Exam Type: Invasive Peripheral Vascular Procedure(s): Procedure Description: Peripheral Cath Diagnostic Procedure Procedure Description: Abdominal aortic angiography Procedure Description: Lower extremities' angiography Procedure Description: Peripheral vascular Intervention Procedure Description: PV Balloon Exam Priority: Routine Conclusions Reason for consultation lifestyle limiting claudication Patient was brought to the [facility] for right SFA intervention. After obtaining access with somewhat difficulty through left common femoral artery , abdominal angiogram was performed which showed luminal irregularities and patent bilateral iliac including common iliac, external and internal iliac arteries with patent bilateral common and external illiac stents. It was also noted that patient has right SFA which is chronically occluded. No flow was observed in the left previously patent SFA at the same time left common femoral artery appeared to be severely significantly stenotic diseased with slow flow. It was our impression that patient may have disease in the common femoral artery after obtaining access there may be plaque rupture resulting in the undermining of the flow.Immediately right common femoral artery approach was adopted. After crossing with a wire balloon angioplasty of left common femoral artery was performed which resulted in opening of the common femoral with excellent result and flow . However haziness was noted in the proximal left SFA without limitation of flow. We tried to attempt bloon angioplsty in the hazy region of the left proximal SFA , despite of our effort we were not able to cross the lesion. It was thought there may be mild thrombus for which we started patient on anticoagulation. Since patient was not very cooperative and we have good flow in the left SFA we will bring him back tomorrow for right SFA intervention through tibial approach at the same time we will perform peripheral angiogram to assess left SFA if required further intervention will be performed.. Recommendations 1-Return to inpatient for close monitoring and routine cath care 2-Risk factor modification for secondary prevention 3-Statin and aspirin 81 mg life--long, if tolerated 4-Patient was pre-loaded with 300 mg of Plavix, continue Plavix 75mg p.o. daily for one month 5-Continue optimal medical management 6-Patient will be brought back over next 36 hours for further intervention.. Hemodynamic Data Phase:Rest AO : 118.0 / 45.0 ( 66.0 ) @ 6:36:00 AM 117.0 / 51.0 ( 77.0 ) @ 7:24:00 AM Access Site Site: Left Femoral artery Sheath Size: 6 Fr Hemost... Method: Manual Compression Hemost... Success: Successful Site: Right Femoral artery Sheath Size: 6 Fr Hemost... Method: Suture Hemost... Success: Successful Procedure Details Findings Procedure Consent Obtained. Pre-Procedure Time Out. Identified patient by full name and date of as verbalized by the patient/guarantor. Does the consent match the physician's order: Yes. Accurate & Complete Informed Consent: Yes. Inpatient/Outpatient History & Physical on Chart: Yes. If H&P is completed, is and addenduem needed: No; If yes, is the addendum complete: N/A. Visualize and Verify Site with Patient/Guarantor: N/A. Relevant Radiology Images available: N/A. Pre-op teaching completed and patient verbalized understanding. The risks, benefits, and alternatives of sedation and/or procedure were discussed by physician. The patient agrees to continue. Procedure started. Correct patient, site and procedure confirmed by cath team. PERRLA. Strong, equal hand nurse clinician bilaterally. Lungs clear x 5 lobes. IV Site on Arrival: 20 gauge in the right anticubital. IV Fluids: 0.9% NaCl at KVO. 0 mL infused prior to supervisor laboratory. Pre Procedural Pulses: left dorsalis pedis was 2+. Pre Procedural Pulses: right dorsalis pedis was Doppled. Pre Procedural Pulses: right posterior tibial was Doppled. Pre Procedural Pulses: left posterior tibial was 2+. Oxygen started at 2liters/min via nasal canula. bilateral groins was prepped with chloroprep then draped in the usual sterile fashion. Physician notified. Baseline sample Acquired. HR: 52 BPM. Physician arrived. Physician scrubbed in. Immediate Pre-Procedure Time Out. Correct Patient: Yes; Correct Procedure: Yes; Correct Site: Yes; Correct Patient Position: Yes; Correct Supplies: Yes; Dried Flammable Prep: Yes; Blood Products Available: N/A;. Physician scrubbed in. Lidocaine 1% infiltrated to the left groin. Called ultrasound to come assist with gaining access. Jose arrived from ultrasound to help. Arterial access obtained with micropuncture set. Equipment: Peripheral. Cardiac Cath Pack. ACIST Manifold Kit Model BT 2000. Heparinized Saline (2 units/mL), 1000 mL bag. Sheath sutured in. Glidewire inserted. A CORDIS 5F UF catheter 65cm was advanced over the wire and used for Abdominal aortogram with runoff. Abdominal aortogram performed in AP @ 10 mL/sec for a total of 30 mL. Glidewire inserted parked in the perfunda on right. Catheter removed over the glide wire. Short 6 fr glide sheath exchanged for long 45 cm 6 fr flexor sheath. Inventory is CK 6 FR FLEXOR SHEATH 45CM. Unable to advance long sheath. Short sheath replaced. Hand injection through sheath. Side port of sheath attached to Normal Saline flush at KVO to maintain patency. Dumont Wire out. Sheath out. A Manual Compression was successful obtaining hemostatsis at the Left Femoral artery insertion site. Sheath(s) removed and manual pressure held until hemostasis was achieved. Sterile 4x4 and Op-site applied to the puncture site. No oozing or hematoma noted. Post sheath removal instructions were given and the patient verbalized understanding. Lidocaine 1% infiltrated to the right groin. Arterial access obtained with micropuncture set. Glidewire inserted. A 5FrFr UF catheter in over wire. Catheter removed over the glide wire. A JJ 5F RIM 65 cm Diagnostic Catheter was advanced over the wire and used for Lower extremity arteriography. glidewire out. Hand injection. Glidewire inserted. Catheter removed over the glide wire. A 5FrFr IM catheter in over wire. Catheter removed over the glide wire. Inflation number : 1 A AB COLE 35 OTW [id number] was prepped and advanced across the Mid Common Femoral, Left , then inflated to 10 HONEY for 2:05 seconds. Balloon out. A 5FrFr RIM catheter in over wire. Left leg runoff 10 ml for total of 30 ml to check results. glidewire in. ARMADA 35 OTW [id number] inserted. Unable to cross lesion. Balloon removed over wire. Inventory is CRD 6FR IM GUIDE. 6 Fr IM Guide catheter inserted over wire. Guide Catheter out. A 5FrFr IM catheter in over wire. Glidewire out. Command Wire inserted. Catheter removed over the command wire. SEEKER catheter inserted over Command wire. SEEKER and wire out. Glidewire and UF catheter inserted. glidewire out. Hand injection. Catheter out. 6 fr Sheath exchanged for another 6 fr sheath. Physician scrubbed out. A Suture was successful obtaining hemostatsis at the Right Femoral artery insertion site. Sheath(s) sutured into position with 2-0 silk and sterile 4x4's and Op-site applied over the site. No oozing or signs and symptoms of hematoma noted. Arterial sheath flushed and connected to tranducer and pressure bag with heparinized saline. Post Procedure: Pulses reassessed and unchanged. PERRLA. Strong, equal hand nurse clinician bilaterally. No VTE prophylaxis required. Medication's Wasted: Lidocaine 1% = 10 mL. Medication's Wasted: Heparin = 2000 units. Total IV fluids: 175 mL. Medication's Wasted: Other = versed 1 mg. Medication's Wasted: Other = fentanyl 50 mcg. Post-op diagnosis: severe PVD, lifestyle limiting claudication. Complications: none. Estimated blood loss: 5mL-10mL. Procedure completed. Patient transferred by bed to 1st floor. Vital chart was stopped. Procedure Medications Start: 11:03 AM Stop: 11:03 AM Medication: Fentanyl Amount: 50 mcg Route: I.V. Start: 11:03 AM Stop: 11:03 AM Medication: Versed Amount: 2 mg Route: I.V. Start: 11:09 AM Stop: 11:09 AM Medication: Versed Amount: 1 mg Route: I.V. Start: 11:09 AM Stop: 11:09 AM Medication: Fentanyl Amount: 50 mcg Route: I.V. Start: 11:19 AM Stop: 11:19 AM Medication: Versed Amount: 1 mg Route: I.V. Start: 11:33 AM Stop: 11:33 AM Medication: Versed Amount: 1 mg Route: I.V. Start: 11:33 AM Stop: 11:33 AM Medication: Fentanyl Amount: 50 mcg Route: I.V. Start: 11:57 AM Stop: 11:57 AM Medication: Versed Amount: 1 mg Route: I.V. Start: 12:05 PM Stop: 12:05 PM Medication: Versed Amount: 1 mg Route: I.V. Start: 12:06 PM Stop: 12:06 PM Medication: Fentanyl Amount: 50 mcg Route: I.V. Start: 12:14 PM Stop: 12:14 PM Medication: Versed Amount: 1 mg Route: I.V. Start: 12:19 PM Stop: 12:19 PM Medication: Versed Amount: 1 mg Route: I.V. Start: 12:25 PM Stop: 12:25 PM Medication: Heparin Amount: 5000 units Start: 12:30 PM Stop: 12:30 PM Medication: Heparin Amount: 2000 units Start: 12:31 PM Stop: 12:31 PM Medication: Versed Amount: 1 mg Route: I.V. Start: 12:42 PM Stop: 12:42 PM Medication: Versed Amount: 1 mg Route: I.V. Start: 12:43 PM Stop: 12:43 PM Medication: Fentanyl Amount: 50 mcg Route: I.V. Start: 12:48 PM Stop: 12:48 PM Medication: Versed Amount: 1 mg Route: I.V. I, the attending physician, have reviewed and verified all procedure medications. Yes, all medications given per verbal order History/Risk Factors Hypertension: Yes Dyslipidemia: Yes Peripheral Arterial Disease (PAD): Yes Obesity: No Renal Disease: No Tobacco Use: Former Prior Interventions PCI: No CABG: No Valve Surgery: No Report Signatures Finalized by Ivette Acevedo MD on 05/15/2020 01:53 PM
[2020-05-04] MEDS: diphenhydrAMINE 50 mg Capsule PO (09:49)
--- NOTE | 2020-05-04 13:30 | PC.NURSE ---
Patient educated on activity restrictions and oriented to room. Bed alarm on, call light within reach.
--- NOTE | 2020-05-04 13:30 | PC.NURSE ---
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 2 nurse verification of groin incisions. Left groin dressing, CDI, asymptomatic. Right groin connected to pressure bag. Neurovascular assessment performed, see flow sheet. Patient A&Ox4. Denies pain. No needs identified at this time. Nurse to continue to monitor.
--- NOTE | 2020-05-04 13:40 | PC.NURSE ---
No order received for post cath fluids. Nurse contacted Dr. Acevedo to clarify. No answer, message left. Nurse to continue to monitor.
--- NOTE | 2020-05-04 14:36 | PC.NURSE ---
Addendum entered by Berenice Lynn 05/04/20 19:48: Telephone order from Dr. Liu to check PTT at 1530. If PTT is less than 45, pull sheath. RBVO. Original Note: Telephone order received from dr. Acevedo to start fluids at 100 ml/hr for 6 hours, then discontinue.RBVO.
[2020-05-04] MEDS: sodium chloride 0.9% 1,000 ML 100 ML IV (15:05)
[2020-05-04 15:57] LABS: Partial Thromboplastin Time 60.2 SECONDS (23.9-36.7)
--- NOTE | 2020-05-04 16:00 | PC.NURSE ---
Hematoma noted at 1455, measuring 5.5 cm. Direct pressure applied. Incision continued to ooze with pressure. Dr. Acevedo contacted via telephone and updated on patient condition at 1513. Physician reported to bedside at 1520 and took over manual pressure. Hemostasis achieved. Dressing applied, CDI. Left calf swollen, red, warm to touch. Dr. Acevedo notified. No new orders. Neurovascular assessment performed, WNL. Nurse to continue to monitor.
[2020-05-04] MEDS: morphine 4 mg/mL SDV 1 mL 2 MG IVP ×2 (16:05→20:57)
--- NOTE | 2020-05-04 16:06 | PC.NURSE ---
Dr. Acevedo updated on patient condition. PTT 60.2. Telephone order to pull sheath in 45 minutes. RBVO.
--- NOTE | 2020-05-04 18:00 | PC.NURSE ---
Sheath pulled at 1751. Direct pressure applied for 25 minutes to maintain hemostasis. No hematoma noted. Dressing applied, CDI. Patient tolerated well. Nurse to continue to monitor.
--- NOTE | 2020-05-04 19:33 | PC.NURSE ---
Patient's right and left groin sites/dressings WNL. VSS. Dr. Acevedo in room to see patient. Patient educated on activity restrictions/bedrest and verbalized understanding. Call light within reach. Will monitor.
--- NOTE | 2020-05-04 22:10 | PC.NURSE ---
Patient is currently resting with eyes closed. Will monitor.
[2020-05-05] VITALS (30 sets, daily range): BP systolic 126–180; BP diastolic 56–116; PULSE 45–88; RESP 11–26; TEMP 36.7–36.9; O2SAT 93–97
--- NOTE | 2020-05-05 00:35 | PC.NURSE ---
Patient ambulated in the lee with nurse. VSS. Right groin and left groin dressings/sites WNL before and after walk.
[2020-05-05 05:08] LABS: Basophils # 0.1 10^3/uL (0.0-0.1); Basophils % 0.7 %; Eosinophils # 0.1 10^3/uL (0.0-0.8); Eosinophils % 0.7 %; Hematocrit 41.8 % (42.0-52.0); Lymphocytes # 0.8 10^3/uL (0.8-4.8); Lymphocytes % 6.3 %; Mean Corpuscular HGB Conc 33.5 g/dL (30.0-36.0); Mean Corpuscular Hemoglobin 29.7 pg (28.0-34.0); Mean Corpuscular Volume 88.7 fL (80-94); Mean Platelet Volume 10.8 fL (7.4-10.4); Monocytes # 0.7 10^3/uL (0.2-0.9); Monocytes % 5.4 %; Neutrophils # 10.48 10^3/uL (1.8-7.7); Neutrophils % 86.5 %; Nucleated Red Blood Cells % 0 %; Platelet Count 268 10^3/cmm (130-400); Red Blood Count 4.71 10^6/uL (4.1-5.3); Red Cell Distribution Width 13.3 % (12.1-15.1); White Blood Count 12.1 10^3/uL (4.0-10.0)
[2020-05-05 05:19] LABS: Anion Gap 13.9 (5-19); Blood Urea Nitrogen 6 mg/dL (8-23); Calcium 9.1 mg/dL (8.5-10.5); Carbon Dioxide 24 mmol/L (22-29); Chloride 106 mmol/L (98-107); Glomerular Filtration Rate 85.2 mL/min (90-130); Glucose 110 mg/dL (65-115); Osmolality Calculated 288 mOsm/kg (285-295); Potassium 3.9 mmol/L (3.5-5.1); Sodium 140 mmol/L (136-145)
[2020-05-05] MEDS: diphenhydrAMINE 50 mg Capsule PO (07:26)
--- NOTE | 2020-05-05 07:30 | PC.NURSE ---
Patient resting in bed at time of assessment. Consent obtained for procedure. No needs identified at this time. Nurse to continue to monitor.
[2020-05-05] MEDS: sodium chloride 0.9% 1,000 ML 50 ML IV (07:32)
--- NOTE | 2020-05-05 08:22 | ANES.PREANE2 ---
Pre-Anesthetic Assessment Pre-Anesthetic Assessment: Height/Weight: Height 1.78 m Weight 95.254 kg Temp Pulse Resp BP Pulse Ox 98.3 F 59 L 20 H 130/74 95 05/05/20 07:12 05/05/20 07:12 05/05/20 07:12 05/05/20 07:12 05/05/20 07:12 Preop Diagnosis: Severe peripheral vascular disease with history of stent in the past Proposed Procedure: Operation Date: 05/04/20 10:00 Proposed Procedures p Peripheral Diagnostic(Bilateral) - Ivette Acevedo MD Operation Date: 05/05/20 08:30 Proposed Procedures p Peripheral Diagnostic(Bilateral) - Ivette Acevedo MD Familial anesthetic complications: none Was Beta Aspen taken within 24 hours: Yes Last Intake: 19:00 Social: Social History: No alcohol and No tobacco (stop 3 yrs) Comment: THC daily Exam: Pre-Anes Outpt Exam: alert, oriented x 3, clear to auscultation bilaterally and regular rate & rhythm Airway: Submandibular: WNL Cervical ROM: WNL MP: 1 Dentition: False Pulmonary: Pulmonary: COPD, GRIDER and SOB CV/HEM: CV/HEM: HTN and PVD : : None reported Hepatic: Hepatic: None reported GI: GI: GERD (food related) Metabolic: Metabolic: Thyroid Musc/skel: Musc/skel: Lower Back Pain Comments: constant leg pain Neuropsych: Neuropsych: Depression Anesthetic Plan: ASA status: 3 Anesthesia: MAC Risk of > 500 ml blood loss (7ml/kg in children): No Meds/Allergies Current Medications: Current Medications Generic Name Dose Route Start Last Admin Trade Name Freq PRN Reason Stop Dose Admin Sodium Chloride 1,000 mls @ 100 m ls/hr 05/04/20 15:00 05/04/20 20:52 Sodium Chloride 0.9% IV 0 mls/hr .Q10H GAEL Infusion Sodium Chloride 1,000 mls @ 50 ml s/hr 05/05/20 07:30 05/05/20 07:32 Sodium Chloride 0.9% IV 05/06/20 03:29 50 mls/hr .Q20H ONE Administration Morphine Sulfate 2 mg 05/04/20 15:25 05/04/20 20:57 Morphine IVP 2 mg Q4H PRN Administration SEVERE PAIN PFSH Anesthesia PFSH: Medical History (Updated 05/04/20 @ 10:22 by Ivette Acevedo MD) Asthma Claudication of lower extremity with history of revascularization COPD (chronic obstructive pulmonary disease) History of skin cancer HTN (hypertension) Peripheral Vascular Disease Varicose veins of anus or rectum Surgical History S/P appendectomy S/P cholecystectomy S/P knee surgery Left Social History Smoking and tobacco status: former smoker Data Anesthesia CBC & Chem 7: 05/05/20 04:05 05/05/20 04:05 Other Labs: Laboratory Results - last 48 hr 05/04/20 05/05/20 05/05/20 15:30 04:05 04:05 WBC 12.1 H RBC 4.71 Hgb 14.0 Hct 41.8 L MCV 88.7 MCH 29.7 MCHC 33.5 RDW 13.3 Plt Count 268 MPV 10.8 H Neut % (Auto) 86.5 Lymph % (Auto) 6.3 [place] % (Auto) 5.4 Eos % (Auto) 0.7 Baso % (Auto) 0.7 Neut # (Auto) 10.48 H Lymph # (Auto) 0.8 [place] # (Auto) 0.7 Eos # (Auto) 0.1 Baso # (Auto) 0.1 Nucleated RBC % (auto) 0 Nucleated RBCs # 0.0 APTT 60.2 H Sodium 140 Potassium 3.9 Chloride 106 Carbon Dioxide 24 Anion Gap 13.9 BUN 6 L Creatinine 0.9 GFR Calculation 85.2 L Glucose 110 Calculated Osmolality 288 Calcium 9.1 Cardiac Studies: No Data to Display
--- NOTE | 2020-05-05 08:40 | XACV_ITS ---
Exam Room: [facility] Ht: 178 cm Wt: 95 kg BSA: 2.19 m2 Gender: Male : 1955 Any Known Allergies: Penicillins Exam Priority: Routine Procedure(s): Procedure Description: PCI procedure Procedure Description: Coronary Atherectomy Procedure Description: Peripheral Cath Diagnostic Procedure Procedure Description: Lower extremities' angiography Procedure Description: Peripheral vascular Intervention Procedure Description: PV Balloon Diagnostic Cath Status: Urgent Conclusions Indication for peripheral angiogram/SUPERCHARGE REPAIR SUPERVISOR: Lifestyle limiting claudication despite of optimization of medicine. Chronically occluded ostial to distal SFA and proximal popliteal artery of the right side.After failing from a left-sided approach and running into complication of left common femoral artery occlusion which was addressed yesterday during the same go patient was brought in today for right SFA intervention for chronic occlusion and lifestyle limiting claudication. Posterior tibial approach was adopted. After crossing distal to proximal right SFA Viper wire was exchanged CSI atherectomy using 2.0 bur was used followed by multiple balloon angioplasties please see details in the main body of the note. Excellent angiographic result with good flow was achieved and ostial to distal SFA and popliteal artery. After procedure patient good dopplerable anterior and posterior tibial pulse.. Recommendations 1-Return to inpatient for close monitoring and routine cath care 2-Risk factor modification for secondary prevention 3-Statin and aspirin 81 mg life--long, if tolerated 4-Continue Plavix 75mg p.o. daily for at least one year. We will assess at the end of one year again to continue if further or not 5-Continue optimal medical management 6-Follow up with Dr. Acevedo in four weeks and your primary care in 10 days. Pressures Phase:Rest AO : / ( 0 ) @ 4:58:00 AM Hemodynamic Data Phase:Rest AO : / ( 0.0 ) @ 4:58:00 AM Clinical Evaluation EBL: 5mL-10mL Procedural Details Procedure Consent Obtained. Pre-Procedure Time Out. Identified patient by full name and date of as verbalized by the patient/guarantor. Does the consent match the physician's order: Yes. Accurate & Complete Informed Consent: Yes. Inpatient/Outpatient History & Physical on Chart: Yes. If H&P is completed, is and addenduem needed: N/A; If yes, is the addendum complete: N/A. Visualize and Verify Site with Patient/Guarantor: N/A. Relevant Radiology Images available: Yes. Pre-op teaching completed and patient verbalized understanding. The risks, benefits, and alternatives of sedation and/or procedure were discussed by physician. The patient agrees to continue. Procedure started. PERRLA. Strong, equal hand artificial pearl maker bilaterally. Lungs clear x 5 lobes. IV Site on Arrival: 20 gauge in the right anticubital. IV Fluids: 0.9% NaCl at KVO. 50 mL infused prior to labor operator. Pre Procedural Pulses: bilateral dorsalis pedis was Absent. Pre Procedural Pulses: right dorsalis pedis was 1+. Pre Procedural Pulses: left dorsalis pedis was 1+. Pre Procedural Pulses: right posterior tibial was 1+. Pre Procedural Pulses: left posterior tibial was 2+. Oxygen started at 2liters/min via nasal canula. bilateral groins was prepped with chloroprep then draped in the usual sterile fashion. Physician notified. Anesthesiologist Paged. Anesthesiologist Arrived. Physician arrived. Equipment: 6F - Femoral. Physician scrubbed in. Time out performed with cath team. Immediate Pre-Procedure Time Out. Correct Patient: Yes; Correct Procedure: Yes; Correct Site: Yes; Correct Patient Position: Yes; Correct Supplies: Yes; Dried Flammable Prep: Yes; Blood Products Available: No;. Anesthesiologist to admin sedation. Baseline sample Acquired. HR: 66 BPM. Lidocaine 1% infiltrated to the posterior tibial. Arterial access obtained. glidewire inserted. seeker inserted. wire and seeker in distal aorta. wire out. hand injection through seeker. viper inserted through seeker. seeker out. Patient's family unavailable. viper wire inserted. marixa inserted over wire. orbital antherectomy performed in right distal SFA. orbital antherectomy performed in right SFA. bur out. seeker inserted over viper wire. viper wire removed. glidewire inserted. seeker removed. Inflation number : 1 A AB Draper 35 SUPERCHARGE REPAIR SUPERVISOR Catheter [id number] was prepped and advanced across the Superficial Femoral, Right , then inflated to 6 HONEY for 1:00 seconds. Inflation number: 2 The AB Draper 35 SUPERCHARGE REPAIR SUPERVISOR Catheter [id number] was reinflated across the Superficial Femoral, Right, to 8 HONEY for 2:00 seconds. Inflation number: 1 The AB Draper 35 SUPERCHARGE REPAIR SUPERVISOR Catheter [id number] was reinflated across the Popliteal, Right, to 8 HONEY for 2:00 seconds. Balloon out over wire. Inflation number : 3 A BARD 5FR Lutinox [id number] drug coated balloon was prepped and advanced across the Superficial Femoral, Right , then inflated to 8 HONEY for 1:00 seconds. Side port of sheath attached to Normal Saline flush at KVO to maintain patency. Inflation number: 4 The BARD 5FR Lutinox [id number] drug coated balloon was reinflated across the Superficial Femoral, Right, to 8 HONEY for 1:00 seconds. Balloon out. A 5 telugu Straight Pig catheter in over wire. wire out. catheter seated in distal aorta. right leg runoff 10ml/sec for a total of 30ml. glidewire inserted. Catheter out. 5 telugu MPA 1 guide catheter was inserted over the wire. glidewire removed. hand injection performed. hand injection performed. hand injection performed of PT. Catheter out. A TR Band was successful obtaining hemostatsis at the Right Popliteal insertion site. TR band placed. Hemostasis obtained. Post Procedure: Pulses reassessed and unchanged. PERRLA. Strong, equal hand artificial pearl maker bilaterally. No VTE prophylaxis required. Fluoro: 19:50. Contrast type used: Omnipaque 300 mgI/mL, 500 mL bottle. [id number]. Post-op diagnosis: severe PAD SFA/ Popliteal. Complications: none. Estimated blood loss: 5mL-10mL. Procedure completed. Patient transferred by bed to 1st floor. Vital chart was stopped. Access Site Site: Right Popliteal Sheath Size: 6 Fr Hemostasis Method: TR Band Hemostasis Success: Successful Procedure Medications Start: 9:46 AM Stop: 9:46 AM Medication: Heparin Amount: 5000 units Route: I.V. Start: 10:19 AM Stop: 10:19 AM Medication: Heparin Amount: 2000 units Route: I.V. I, the attending physician, have reviewed and verified all procedure medications. Yes, all medications given per verbal order History/Risk Factors Hypertension: Yes Dyslipidemia: Yes Peripheral Arterial Disease (PAD): Yes Myocardial Infarction ([place]): No Obesity: No Renal Disease: No Tobacco Use: Former Prior Interventions PCI: No CABG: No Valve Surgery: No Report Signatures Finalized by Ivette Acevedo MD on 05/17/2020 02:13 PM
--- NOTE | 2020-05-05 09:00 | PC.NURSE ---
Patient off unit to manager cardiac cath. Stable at this time.
--- NOTE | 2020-05-05 09:19 | USCV_ITS ---
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
--- NOTE | 2020-05-05 09:21 | W.PM.OPSUD ---
Surgery/Procedure H&P Update DATE OF PROCEDURE: May 05, 2020 DATE H&P PERFORMED: 05/04/20 H&P UPDATE INFORMATION: I have reviewed H&P completed within last 30 days, I have examined patient prior to procedure, No changes to prior documentation and Changes to prior documentation as noted here PREOP DIAGNOSIS: Severe peripheral vascular disease with history of stent in the past lifestyle limiting claudication PLANNED PROCEDURE: Operation Date: 05/04/20 10:00 Proposed Procedures p Peripheral Diagnostic(Bilateral) - Ivette Acevedo MD Operation Date: 05/05/20 08:30 Proposed Procedures p Peripheral Diagnostic(Bilateral) - Ivette Acevedo MD
--- NOTE | 2020-05-05 11:00 | PC.NURSE ---
Patient back from pathology laboratory technologist. 2 nurse verification of insertion site, asymptomatic. TR band intact. Anesthesia at bedside. Nurse to continue to monitor.
[2020-05-05] MEDS: morphine 4 mg/mL SDV 1 mL 2 MG IVP (11:14)
--- NOTE | 2020-05-05 11:17 | PC.CHAP ---
Pastoral Care Encounter/Spiritual Assessment Type of Contact [] Declined home therapy clinician visit [] Patient/Family/Request visit [] Outpatient visit [x] Follow-up visit [] Physician referral [] Code/Alert [] Routine visit [] Staff referral [] Actively dying [] Patient sleeping [] Family support [] [] Out of room [] Palliative care [] [] Receiving care in room [] Pre-surgical visit [] Trauma [] Long length of stay [] ICU visit [] Other: Relational/Emotional Strength [] Patient feels connected with others/family/visitors/staff [] Distress [] Loneliness/isolation [] Abandonment Spirituality of Patient [] Person of [place] [] Attends [employer] of their [place] [] Believes in Prayer [] Reads Bible or Hinduism materials [] There are Spiritual issues to be addressed Holistic Pulser Interventions [] Prayer [] Active listening [] Non-anxious presence [] Spiritual/emotional support [] Crisis/trauma care [] Spiritual counseling [] Bereavement support [] Provided bereavement packet [] Provided Bible/devotional materials [] Provided toy/stuffed animal, coloring book to patient or family member [] Provided Communion [] Anointing/[place] [] Salvation [] Completed spiritual assessment [] Other: Impact on Illness or Injury [] Angry [] Fearful [] Anxious [] Often cries [] Exhaustion [] Unable to work [] Unable to attend mandaeism [] Unable to walk/stand [] Unable to read [] Unable to drive [] Unable to eat/drink [] Unable to sleep [] Unable to be with family [] Patient intubated [] Other: Summary Follow-up visit Time spent with patient 5 mins
--- NOTE | 2020-05-05 11:21 | PC.NURSE ---
Dr. Acevedo contacted via telephone. Patient in extreme pain not managed by morphine. Rating 10/10 to medial thigh. Bruising noted. Incision site asymptomatic. Pulses dopplered. Dr. Acevedo to report to bedside to see patient.
--- NOTE | 2020-05-05 11:25 | PC.NURSE ---
Dr. Acevedo at bedside. Verbal order received to administer 25 mcg of fentanyl IVP ONCE. RBVO.
[2020-05-05] MEDS: fentaNYL 50 mcg/mL INJ 2mL 25 MCG IVP (11:28)
--- NOTE | 2020-05-05 11:30 | PC.NURSE ---
Dr. Acevedo notified that patient is bradycardic. Physician gave verbal order to hold morning administration of atenolol. RBVO.
--- NOTE | 2020-05-05 11:30 | PC.NURSE ---
Dr. Acevedo gave verbal order to discontinue fluid order. No fluids to be given post cath. Patient will require two hours bedrest following removal of TR band, RBVO. Nurse to continue to monitor.
[2020-05-05] MEDS: aspirin 81 mg EC Tablet PO (11:35)
[2020-05-05] MEDS: atorvastatin 40 mg Tablet 20 MG PO (11:35)
[2020-05-05] MEDS: levothyroxine 50 mcg Tablet PO (11:35)
[2020-05-05] MEDS: isosorbide mononitrate ER 30 mg Tablet PO (11:35)
[2020-05-05] MEDS: clopidogrel 75 mg Tablet PO (11:36)
--- NOTE | 2020-05-05 13:00 | PC.NURSE ---
TR Band off at 1300. 15 ml of air let out per protocol. Patient tolerated well. Dressing applied, CDI. Nurse to continue to monitor.
--- NOTE | 2020-05-05 14:06 | ANE.PACU2 ---
Inpatient post-anesthesia follow up: Airway intact: Yes Vital signs: Temperature 98.3 F Pulse Rate 48 Respiratory Rate 16 Blood Pressure 165/75 Pulse Oximetry 96 Oxygen Delivery Me thod Room Air Oxygen Flow Rate Fraction of Inspir ed Oxygen Hydration adequate: Yes Nausea and vomiting: No Pain level: 1 Mental status: Baseline
--- NOTE | 2020-05-05 15:54 | PC.NURSE ---
Uriostegui discontinued. Patient ambulated in hallway. Tolerated well. Right Tibial Arterial Access reassessed. Asymptomatic. Nurse to continue to monitor.
--- NOTE | 2020-05-05 18:02 | PM.DCS ---
Discharge Providers Date of Admission: 05/04/20 13:31 Date of Discharge: May 05, 2020 Attending Provider at Admission: Ivette Acevedo MD Attending Provider at Discharge: Ivette Acevedo MD Primary Care Provider: Ronda Dowell MD Reason for Visit Reason for Visit: peripheral angio Hospital Course Discharge Summary: 64-year-old male admitted for lifestyle limiting claudication underwent peripheral angiogram through left groin approach complicated with plaque rupture and shutting down of left SFA which was rescued through right common femoral approach with balloon angioplasty excellent result was achieved blood flow was restored in left SFA, postprocedure patient did fine, this morning he was brought into the Coke Crusher Operator and for right SFA occlusion intervention through right posterior tibial artery approach. We were able to cross from right posterior tibial vessel into the right popliteal and SFA. Wire was parked in the aorta through right iliac artery. CSI atherectomy using 2.0 bur was performed throughout the SFA and popliteal artery. Balloon angioplasty of right distal iliac stent and righ SFA popliteal vessel was performed. Drug-coated balloon was also used. Excellent angiographic result with good flow was noted all the way from common iliac to posterior and anterior tibial vessel with two-vessel runoff. Postop course remains uncomplicated. Patient is walking around he has good anterior posterior tibial pulse in the right foot. He would like to go home. We will discharge him now. Physical Exam Narrative: EXAM NARRATIVE: GENERAL: Patient is alert, awake and oriented x3. NECK: No jugular vein distension. HEENT: No cyanosis. No icterus. No pallor. HEART: Regular S1 and S2. No murmur, rub or gallop. LUNGS: Clear to auscultate bilaterally. ABDOMEN: Soft, nontender and nondistended. Positive bowel sounds. No guarding, rebound or tenderness. CENTRAL NERVOUS SYSTEM: Grossly nonfocal. EXTREMITIES: Lower extremities without edema bilaterally. Pulses palpable in the lower extremities, both dorsalis pedis and posterior tibial. Urinary Catheter Management^: Uriostegui Latex: Cath Placed During This Visit: yes, but has since been removed by the nurse Reason for Continuing Indwelling Catheter: Acute Urinary Retention or Obstruction Urinary Catheter Date of Insertion: 05/04/20 Urinary Catheter Time of Insertion: 15:25 Date Urinary Catheter Removed: 05/05/20 Time Urinary Catheter Discontinued: 15:40 Discharge Data Data Completed and Pending: Completed Studies During Hospitalization Category Date Time Status US guide vascular access [CV guide vascular access Ultrasound 05/05/20 09:19 Completed [id number]] Routine Pending at discharge Category Date Time Status WINCHMAN/CRANE OPERATOR request for service Routin e Exams 05/04/20 09:00 Taken WINCHMAN/CRANE OPERATOR request for service Routin e Exams 05/05/20 08:40 Taken Basic Metabolic P tien AM LABS Lab 05/06/20 04:00 Ordered Complete Blood Co unt w/Auto AM LABS Lab 05/06/20 04:00 Ordered Labs from last 24 hours 05/05/20 05/05/20 04:05 04:05 WBC 12.1 H RBC 4.71 Hgb 14.0 Hct 41.8 L MCV 88.7 MCH 29.7 MCHC 33.5 RDW 13.3 Plt Count 268 MPV 10.8 H Neut % (Auto) 86.5 Lymph % (Auto) 6.3 [place] % (Auto) 5.4 Eos % (Auto) 0.7 Baso % (Auto) 0.7 Neut # (Auto) 10.48 H Lymph # (Auto) 0.8 [place] # (Auto) 0.7 Eos # (Auto) 0.1 Baso # (Auto) 0.1 Nucleated RBC % (a uto) 0 Nucleated RBCs # 0.0 Sodium 140 Potassium 3.9 Chloride 106 Carbon Dioxide 24 Anion Gap 13.9 BUN 6 L Creatinine 0.9 GFR Calculation 85.2 L Glucose 110 Calculated Osmolal ity 288 Calcium 9.1 Vitals: Last Vital Signs Temp 98.1 F 05/05/20 14:59 Pulse 56 L 05/05/20 15:30 Resp 13 05/05/20 15:30 BP 162/77 05/05/20 15:30 Pulse Ox 96 05/05/20 15:30 Discharge Plan Discharge Patient Disposition: Home Condition: Stable Prescriptions: Continued levothyroxine 50 mcg capsule 50 mcg PO DAILY RF: 0 aspirin [Adult Low Dose Aspirin] 81 mg tablet,delayed release (DR/EC) 81 mg PO DAILY RF: 0 atenolol 25 mg tablet 25 mg PO DAILY RF: 0 fluticasone propionate [Flonase Allergy Relief] 50 mcg/actuation spray,suspension 1 spray INTRANASAL DAILY PRN (Reason: Allergy Symptoms) RF: 0 albuterol sulfate [ProAir HFA] 90 mcg/actuation HFA aerosol inhaler 2 puff INHALATION Q6H PRN (Reason: Shortness Of Breath) RF: 0 furosemide 20 mg tablet 20 mg PO DAILY Qty: 90 RF: 1 amlodipine 5 mg tablet 5 mg PO DAILY Qty: 90 RF: 3 atorvastatin 20 mg tablet 20 mg PO DAILY Qty: 90 RF: 3 isosorbide mononitrate 30 mg tablet extended release 24 hr 30 mg PO DAILY Qty: 90 RF: 3 clopidogrel 75 mg tablet 75 mg PO DAILY Qty: 90 RF: 0 Discharge Orders: Discharge Order (Routine); Ordered 05/05/20 Ordered By: vIette Acevedo Referrals: Ivette Acevedo MD [Physician] - 3 months ([facility] [place] [facility] will be calling to schedule a cardiology followup with Dr. Acevedo to be seen in 3 months. If you don't hear from them by mid morning tomorrow morning, please give them a call. Thank you.) Jessica Holden FNP [Nurse Practitioner] - 1 week ([facility] [place] [facility] will be calling to schedule a post procedure followup with HIEN Sawant to be seen in 1 week. If you don't hear from them by tomorrow mid-morning, please give them a call. Thank you ) Discharge Diet: Low Salt and Low Cholesterol Discharge Activity: Increase activity as tolerated Patient Instructions: Peripheral Vascular Angioplasty (DC) Activity Restrictions/Additional Instructions: Follow-up with Jessica Holden in 7 days, follow-up with Dr. Acevedo in 3 months Discharge Attestations Time Spent in Discharge Care*: greater than 30 min Quality Metrics Clinical Quality Measures During this hospital stay, did patient experience: None Coding Level of Care Code Established Pt Acute Joy Loading Machine Operator for Chg Fwd Patient Type Established History Expanded Problem Focused Exam Expanded Problem Focused Medical Decision Making Moderate Complexity
--- NOTE | 2020-05-05 19:04 | PC.NURSE ---
Discharge instructions given per the physician's orders. Patient verbalized understanding of post angiogram home care instructions and did not have any further questions. Patient to be drove home by sister in private vehicle. IV has been removed. Patient dressed self. No further needs identified.
--- NOTE | 2020-05-06 09:02 | PC.RESP ---
Pulmonary Rehab information sent to patient.
== END 2020-05-05 19:05 | disposition home or self-care (01) ==
LOC: CSU 13:54
PROVIDERS: Admitting Provider Internal Medicine Cardiovascular Disease; PCP Family Medicine; Visit Provider Internal Medicine Cardiovascular Disease
DX: I70.202 Unspecified atherosclerosis of native arteries of extremities, left leg (principal); Z79.82 Long term (current) use of aspirin; J44.9 Chronic obstructive pulmonary disease, unspecified; I10 Essential (primary) hypertension; Z85.828 Personal history of other malignant neoplasm of skin; Z87.891 Personal history of nicotine dependence; Z95.828 Presence of other vascular implants and grafts
CPT/HCPCS: 12345; 36415; 37224; 37225; 51702; 75625; 75710; 76937; 80048; 85025; 85730; 96360; 96361; 96375; C1724; C1725; C1769; C1887; C1894; C2623; G0378; J1644; J2250; J2270; J2704; J3010; J3490; J7030; Q0163; Q9967

== ENCOUNTER → 2020-05-12 14:15 | Outpatient (BNVA) | payer MEDICARE, SELFPAY | PROVIDERS: PCP Family Medicine; Visit Provider Nurse Practitioner Family | DX: I73.9 Peripheral vascular disease, unspecified (principal) | CPT/HCPCS: 80048 ==

== ENCOUNTER → 2020-06-03 12:54 | Outpatient (BNVA) | payer MEDICARE, SELFPAY | PROVIDERS: PCP Family Medicine; Visit Provider Internal Medicine Cardiovascular Disease | DX: Z11.59 Encounter for screening for other viral diseases (principal) | CPT/HCPCS: 87635 ==

== ENCOUNTER → 2020-06-17 10:36 | Outpatient (BNVA) | payer MEDICARE, SELFPAY | PROVIDERS: PCP Family Medicine; Visit Provider Nurse Practitioner Family | DX: Z20.828 Contact with and (suspected) exposure to other viral communicable diseases (principal) | CPT/HCPCS: 87635 ==

== ENCOUNTER 2020-07-04 12:44 | Outpatient (CLI) | payer MEDICARE, SELFPAY ==
--- NOTE | 2020-07-04 12:57 | XR_ITS ---
WS: [id number] LUMBAR SPINE TECHNIQUE: 3 views of the lumbar spine CLINICAL INFORMATION: ACUTE LUMBAR BACK PAIN COMPARISON: None. FINDINGS: Five [id number] lumbar vertebral bodies. Mild lumbar curve convex left. Cholecystectomy clips. B ilateral iliac stent grafts. Trace anterolisthesis L4 on L5. Aortic calcification. Moderate facet art hropathy L4-L5 and L5-S1. Disc space heights and vertebral body heights well-preserved. No acute comp ression fractures. XR/XR lumbar spine 2-3V* [id number] IMPRESSION: 1. Mild lumbar curve convex left. 2. No acute appearing compression fractures. 3. Disc space heights and vertebral body heights well-preserved. 4. Trace anterolisthesis L4 on L5. 5. Moderate facet arthropathy L4-L5 and L5-S1. 6. Aortic calcification. Bilateral common iliac stent grafts.
== END 2020-07-04 12:45 | disposition home or self-care (01) ==
LOC: RADWPI 12:49
PROVIDERS: PCP Family Medicine; Visit Provider Nurse Practitioner
DX: M54.5 Low back pain (principal); M47.816 Spondylosis without myelopathy or radiculopathy, lumbar region; M47.817 Spondylosis without myelopathy or radiculopathy, lumbosacral region; I70.0 Atherosclerosis of aorta
CPT/HCPCS: 72100

== ENCOUNTER 2020-11-01 15:40 | Outpatient (CLI) | payer MEDICARE, SELFPAY ==
--- NOTE | 2020-11-01 16:00 | MR_ITS ---
WS: [id number] MRI LUMBAR SPINE NONCONTRAST HISTORY: ACUTE LUMBAR BACK PAIN COMPARISON: None available. TECHNIQUE: Sagittal and axial multisequence imaging is submitted. Mild increase in cervical lordosis and thoracic kyphosis. 2 mm anterolisthesis of L4. Otherwise the alignment is normal. No acute fractures. There is a small a mount of reactive marrow edema in the RIGHT pedicles of L4 and L5. Minimal disc space narrowing and desiccation at L4-5 and L5-S1. Conus terminates normally at L1. L1-L2: Normal. L2-L3: Mild facet joint arthritis. No stenosis. L3-L4: Mild annular disc bulging and very mild osteophytic ridging with mild ligamentum flavum hypert rophy. Very mild narrowing of the lateral recess and RIGHT foramen. No high-grade stenosis. L4-L5: Moderate annular disc bulging and osteophytic ridging. Marked ligamentum flavum hypertrophy bi laterally and extending posteriorly. Osteophytes and ligamentum flavum hypertrophy causing encroachme nt into the thecal sac in the lateral recesses. Mild RIGHT foraminal stenosis. L5-S1: Mild annular disc bulge with a shallow annular fissure.. Mild osteophytic ridging around the v ertebral bodies mild bilateral foraminal narrowing. Mild atherosclerosis within the aorta. MR/MR lumbar spine wo con* [id number] IMPRESSION: 1. Mild central and lateral recess stenosis and RIGHT foraminal stenosis at L4 -5 as described above. 2. Mild bilateral foraminal stenosis at L5-S1. 3. Minimal narrowing of the lateral recesses and RIGHT foramen at L3.
== END 2020-11-01 15:41 | disposition home or self-care (01) ==
LOC: RADWPI 15:54
PROVIDERS: PCP Family Medicine; Visit Provider Nurse Practitioner
DX: M48.07 Spinal stenosis, lumbosacral region (principal); M48.061 Spinal stenosis, lumbar region without neurogenic claudication
CPT/HCPCS: 72148

== ENCOUNTER → 2021-06-02 15:54 | Outpatient (BNVA) | payer MEDICARE, SELFPAY | PROVIDERS: PCP Family Medicine; Visit Provider Emergency Medicine | DX: Z20.822 Contact with and (suspected) exposure to COVID-19 (principal) | CPT/HCPCS: 87635 ==

== ENCOUNTER 2021-11-07 13:50 | Emergency (ER) | payer MEDICARE, SELFPAY ==
[2021-11-07 14:11] VITALS: BP 197/96; PULSE 70; RESP 20; TEMP 36.5; O2SAT 96; BMI 30.1
[2021-11-07 16:49] VITALS: BP 131/84; PULSE 59; RESP 16; O2SAT 97
[2021-11-07 16:58] LABS: Basophils # 0.1 10^3/uL (0.0-0.1); Basophils % 0.9 %; Eosinophils # 0.1 10^3/uL (0.0-0.8); Eosinophils % 0.9 %; Hematocrit 46.7 % (42.0-52.0); Lymphocytes # 1.2 10^3/uL (0.8-4.8); Lymphocytes % 9.6 %; Mean Corpuscular HGB Conc 34.3 g/dL (30.0-36.0); Mean Corpuscular Hemoglobin 30.1 pg (28.0-34.0); Mean Corpuscular Volume 87.8 fl (80-94); Mean Platelet Volume 10.5 fL (7.4-10.4); Monocytes # 0.7 10^3/uL (0.2-0.9); Monocytes % 5.8 %; Neutrophils # 10.46 10^3/uL (1.8-7.7); Neutrophils % 82.4 %; Nucleated Red Blood Cells % 0 %; Platelet Count 292 10^3/cmm (130-400); Red Blood Count 5.32 10^6/uL (4.1-5.3); Red Cell Distribution Width 12.9 % (12.1-15.1); White Blood Count 12.7 10^3/uL (4.0-10.0)
--- NOTE | 2021-11-07 17:02 | ED_ITS ---
HPI - General Adult General: Chief complaint: General Medical Stated complaint: low back pain / nausea / dizziness upon standing Time Seen by Provider: 11/07/21 16:46 Source: patient Mode of arrival: ambulatory Limitations: no limitations History of Present Illness: 66-year-old male presents emergency room complaining of multiple complaints. [place]aine of increased shortness of breath a week ago he had some blood in his stool but that seems is resolved. He had previously been on narcotics for chronic back pain he is having increased back pain now but no radiation to the legs and instead he has been using more marijuana. No vomiting or diarrhea. No chest pain at this time. No dysuria urgency or frequency has a little bit of constipation. Onset (ago): minute(s) Severity: mild Relieving factors: none Exacerbating factors: none Associated symptoms: Deny chest pain, confusion, cough, diaphoresis, decreased appetite, dyspnea, fevers/chills, headache(s), malaise, nausea, rash, palpitations, seizures, short of breath, syncope, vomiting or weakness Treatments prior to arrival: none Review of Systems Const: Denies: fever(s), chills, malaise or diaphoresis Card: Denies: chest pain, palpitations or syncope Resp: Denies: dyspnea GI: Denies: abdominal pain, nausea or vomiting : Reports: flank pain; Denies: difficulty urinating, dysuria, urinary frequency or urinary urgency Skin/Breast: Denies: rash Neuro: Denies: headache(s) or confusion PFSH ED PFSH: Medical History Asthma Claudication of lower extremity with history of revascularization COPD (chronic obstructive pulmonary disease) History of glottic cancer History of radiation therapy History of skin cancer HTN (hypertension) Peripheral Vascular Disease Varicose veins of anus or rectum Surgical History S/P appendectomy S/P cholecystectomy S/P knee surgery Left Social History Smoking and tobacco status: former smoker History of recent travel: No Physical Exam Const: COMMON NORMALS: no acute distress GENERAL APPEARANCE: cooperative and comfortable ORIENTATION/CONSCIOUSNESS: Yes awake, Yes oriented to person, Yes oriented to place and Yes oriented to time HENMT: COMMON NORMALS: normocephalic, atraumatic and hearing grossly normal bilaterally HEAD & SCALP: normocephalic and atraumatic Neck/C-Spine: COMMON NORMALS: no JVD Resp: COMMON NORMALS: normal respiratory effort, No retractions, No use of accessory muscles and clear to auscultation bilaterally AUSCULTATION: clear to auscultation bilaterally Cardio: COMMON NORMALS: no JVD, regular rate, regular rhythm and No murmurs present (Cardio) RATE: regular rate RHYTHM: regular rhythm GI: COMMON NORMALS: No hepatosplenomegaly present AUSCULTATION: Yes normoactive bowel sounds PALPATION: Yes Tenderness to palpation present (GI) (Moderate tenderness no guarding, extends to suprapubic region at midline) Details: LLQ, No Guarding due to palpation present (GI) and Yes No hepatosplenomegaly present Extremity: COMMON NORMALS: normal to inspection, capillary refill normal, no clubbing, cyanosis or edema, no calf tenderness and no pedal edema Neuro: SENSORIUM/ORIENTATION: Yes oriented to person, Yes oriented to place and Yes oriented to time OTHER: D10 reflexes patellar tendon 5 of 5 neurovascular intact in lower extremities. Skin: COMMON NORMALS: no rashes or lesions noted GENERAL SKIN EXAM: no rashes or lesions noted Course Vital Signs: Vital signs: Vital Signs Temperature 97.7 F 11/07/21 14:11 Pulse Rate 62 11/07/21 18:48 Respiratory Rate 18 11/07/21 18:48 Blood Pressure 162/88 11/07/21 18:48 Pulse Oximetry 96 11/07/21 18:48 [facility] - General Adult Medical Decision Making Think his shortness of breath is due to his COPD issues and recommend he use his albuterol rescue inhaler as needed. The rectal bleeding I suspect is diverticulitis. We will go ahead and treat with oral antibiotics. Hemoglobin is stable at this point I do not think he would require any intervention bleeding is already diminished. He should follow-up with his primary care doctor to review if he will need more imaging pending when his last colonoscopy was he thought it was an within the last few years. His back pain he thinks part of his chronic pain that is worsened since switching from narcotics to using marijuana primarily for pain control may need to make further adjustments should follow-up with primary care to pursue this. Medical Records I reviewed the patient's medical records. Lab Data I reviewed the patient's lab results. : 11/07/21 16:44 11/07/21 16:44 Radiology Impressions Chest X-Ray 11/07/21 17:06 IMPRESSION: 1. Negative for infiltrate. 2. Several calcified benign granulomas. 3. Emphysematous changes. Laboratory Results WBC 12.7 10^3/uL (4.0-10.0) H 11/07/21 16:44 RBC 5.32 10^6/uL (4.1-5.3) H 11/07/21 16:44 Hgb 16.0 g/dL (11.7-16.6) 11/07/21 16:44 Hct 46.7 % (42.0-52.0) 11/07/21 16:44 MCV 87.8 fl (80-94) 11/07/21 16:44 MCH 30.1 pg (28.0-34.0) 11/07/21 16:44 MCHC 34.3 g/dL (30.0-36.0) 11/07/21 16:44 RDW 12.9 % (12.1-15.1) 11/07/21 16:44 Plt Count 292 10^3/cmm (130-400) 11/07/21 16:44 MPV 10.5 fL (7.4-10.4) H 11/07/21 16:44 Neut % (Auto) 82.4 % 11/07/21 16:44 Lymph % (Auto) 9.6 % 11/07/21 16:44 Terrell % (Auto) 5.8 % 11/07/21 16:44 Eos % (Auto) 0.9 % 11/07/21 16:44 Baso % (Auto) 0.9 % 11/07/21 16:44 Neut # (Auto) 10.46 10^3/uL (1.8-7.7) H 11/07/21 16:44 Lymph # (Auto) 1.2 10^3/uL (0.8-4.8) 11/07/21 16:44 Terrell # (Auto) 0.7 10^3/uL (0.2-0.9) 11/07/21 16:44 Eos # (Auto) 0.1 10^3/uL (0.0-0.8) 11/07/21 16:44 Baso # (Auto) 0.1 10^3/uL (0.0-0.1) 11/07/21 16:44 Nucleated RBC % (auto) 0 % 11/07/21 16:44 Nucleated RBCs # 0.0 /100WBC 11/07/21 16:44 Sodium 138 mmol/L (136-145) 11/07/21 16:44 Potassium 3.4 mmol/L (3.5-5.1) L 11/07/21 16:44 Chloride 104 mmol/L (98-107) 11/07/21 16:44 Carbon Dioxide 20 mmol/L (22-29) L 11/07/21 16:44 Anion Gap 17.4 (5-19) 11/07/21 16:44 BUN 6 mg/dL (8-23) L 11/07/21 16:44 Creatinine 0.8 mg/dL (0.7-1.2) 11/07/21 16:44 GFR Calculation 97.0 mL/min (90-130) 11/07/21 16:44 Glucose 95 mg/dL (65-115) 11/07/21 16:44 Calculated Osmolality 283 mOsm/kg (285-295) L 11/07/21 16:44 Calcium 9.7 mg/dL (8.5-10.5) 11/07/21 16:44 Total Bilirubin 1.0 mg/dL (0.15-1.2) 11/07/21 16:44 AST 19 U/L (0-40) 11/07/21 16:44 ALT 15 U/L (0-41) 11/07/21 16:44 Alkaline Phosphatase 143 IU/L (40-130) H 11/07/21 16:44 Total Protein 7.1 g/dL (6.6-8.7) 11/07/21 16:44 Albumin 4.8 g/dL (3.5-5.2) 11/07/21 16:44 Globulin 2.3 g/dL (1.3-4.6) 11/07/21 16:44 Lipase 43 U/L (13-60) 11/07/21 16:44 Urine Color Yellow (Yellow) 11/07/21 17:01 Urine Appearance Clear (CLEAR) 11/07/21 17:01 Urine pH 7 (5-7) 11/07/21 17:01 Ur Specific [place] 1.010 (1.005-1.030) 11/07/21 17:01 Urine Protein Neg (Negative) 11/07/21 17:01 Urine Glucose (UA) Norm (Normal) 11/07/21 17:01 Urine Ketones 1+ (Negative) H 11/07/21 17:01 Urine Blood Neg (Negative) 11/07/21 17:01 Urine Nitrate Negative (Negative) 11/07/21 17:01 Urine Bilirubin Neg (Negative) 11/07/21 17:01 Urine Urobilinogen Neg mg/dL (Negative) 11/07/21 17:01 Ur Leukocyte Esterase Negative (Negative) 11/07/21 17:01 Discharge Plan Discharge Patient Disposition: Home Clinical Impression: Diverticulitis, Chronic back pain, Acute exacerbation of chronic obstructive pulmonary disease Condition: Stable Prescriptions: New ondansetron HCl 4 mg tablet 4 mg PO Q6H PRN (Reason: nausea and vomiting) Qty: 20 0RF Cipro 500 mg tablet 500 mg PO Q12H Qty: 14 0RF metronidazole 500 mg tablet 500 mg PO BID 7 Days Qty: 14 0RF No Action levothyroxine 50 mcg capsule 50 mcg PO DAILY 0RF aspirin [Adult Low Dose Aspirin] 81 mg tablet,delayed release (DR/EC) 81 mg PO DAILY 0RF atenolol 25 mg tablet 25 mg PO DAILY 0RF fluticasone propionate [Flonase Allergy Relief] 50 mcg/actuation spray,suspension 1 spray INTRANASAL DAILY PRN (Reason: Allergy Symptoms) 0RF albuterol sulfate [ProAir HFA] 90 mcg/actuation HFA aerosol inhaler 2 puff INHALATION Q6H PRN (Reason: Shortness Of Breath) 0RF baclofen 10 mg tablet 10 mg PO TID 0RF furosemide 20 mg tablet 20 mg PO .every other day 0RF isosorbide mononitrate 30 mg tablet extended release 24 hr 30 mg PO DAILY Qty: 90 3RF atorvastatin 20 mg tablet See Rx Instructions .ROUTE .COMPLEX Qty: 90 0RF Dose Instruction: Take 1 tablet by mouth once daily Rx Instructions: Take 1 tablet by mouth once daily amlodipine 5 mg tablet 5 mg PO DAILY Qty: 30 0RF clopidogrel 75 mg tablet 75 mg PO DAILY Qty: 30 0RF Rx Instructions: patient needs appointment for further refills Discharge Orders: Discharge ED (Routine); Ordered 11/07/21 Ordered By: Jorge Alberto Oakes Referrals: Mary Ann Edwards APN [Primary Care Provider] - Discharge Diet: GI Soft Discharge Activity: Increase activity as tolerated Patient Instructions: Opioid Safety Activity Restrictions/Additional Instructions: Follow-up with your primary care doctor within the next week. Use albuterol as needed for your shortness of breath and wheezing. Coding Level of Care Code ED Hygiene Assistant for Manjinder Sanford
--- NOTE | 2021-11-07 17:05 | ECG_ITS ---
[facility] Test Date: 2021-11-07 Pat Name: Tristian Hernnadez Department: Room: Gender: Male Car Salter: : 1955 Requested By: Jorge Alberto Boone Order Number: [id number] Kimmy MD: Shad Nagel M.D. Measurements Intervals [place] Rate: 59 P: 85 NV: 144 QRS: 76 QRSD: 86 T: 76 QT: 422 QTc: 418 Interpretive Statements SINUS BRADYCARDIA ANTERIOR MYOCARDIAL INFARCTION , PROBABLY OLD [40+ ms Q WAVE AND/OR ST/T ABNORMALITY IN V3/V4] No previous ECG available for comparison Electronically Signed On 11-08-2021 17:05:02 CDT by Shad Nagel M.D. [id number]
--- NOTE | 2021-11-07 17:06 | XRR_ITS ---
PROCEDURE INFORMATION: Exam: XR Chest Exam date and time: 11/07/2021 5:20 PM Age: 66 years old Clinical indication: Other: Dizziness; Additional info: Dyspnea/cough TECHNIQUE: Imaging protocol: XR of the chest. Views: 1 view. COMPARISON: CT angio abd aorta runof [id number] 02/25/2020 9:28 AM FINDINGS: Lungs: Several calcified benign granulomas. Emphysematous changes. Pleural spaces: Unremarkable. No pleural effusion. No pneumothorax. Heart/Mediastinum: Unremarkable. No cardiomegaly. Bones/joints: Unremarkable. XR/XR chest 1V portable [id number] IMPRESSION: 1. Negative for infiltrate. 2. Several calcified benign granulomas. 3. Emphysematous changes.
[2021-11-07 17:18] LABS: Add Urine Microscopic? NO; Charge for UA Resulting for Rev
[2021-11-07 17:19] LABS: Alanine Aminotransferase 15 U/L (0-41); Albumin Level 4.8 g/dL (3.5-5.2); Alkaline Phosphatase 143 IU/L (40-130); Anion Gap 17.4 (5-19); Aspartate Amino Transferase 19 U/L (0-40); Blood Urea Nitrogen 6 mg/dL (8-23); Calcium 9.7 mg/dL (8.5-10.5); Carbon Dioxide 20 mmol/L (22-29); Chloride 104 mmol/L (98-107); Globulin 2.3 g/dL (1.3-4.6); Glucose 95 mg/dL (65-115); Lipase 43 U/L (13-60); Osmolality Calculated 283 mOsm/kg (285-295); Potassium 3.4 mmol/L (3.5-5.1); Sodium 138 mmol/L (136-145); Total Protein 7.1 g/dL (6.6-8.7)
[2021-11-07 17:32] LABS: Bilirubin Urine Neg (Negative); Blood Urine Neg (Negative); Glucose Urine UA Norm (Normal); Ketones Urine 1+ (Negative); Leukocyte Esterase Urine Negative (Negative); Nitrate Urine Negative (Negative); Protein Urine Neg (Negative); Urine Appearance Clear (CLEAR); Urine Color Yellow (Yellow); Urobilinogen Urine Neg (Negative); pH Urine 7 (5-7)
[2021-11-07 17:35] VITALS: BP 174/90; PULSE 60; RESP 20; O2SAT 97
[2021-11-07 18:48] VITALS: BP 162/88; PULSE 62; RESP 18; O2SAT 96
== END 2021-11-07 18:49 | disposition home or self-care (01) ==
PROVIDERS: Emergency Medicine; Emergency Provider Family Medicine; PCP Nurse Practitioner
DX: K57.92 Diverticulitis of intestine, part unspecified, without perforation or abscess without bleeding (principal); J44.1 Chronic obstructive pulmonary disease with (acute) exacerbation; G89.29 Other chronic pain; M54.9 Dorsalgia, unspecified; I10 Essential (primary) hypertension; I73.9 Peripheral vascular disease, unspecified; K59.00 Constipation, unspecified; R11.0 Nausea; Z79.82 Long term (current) use of aspirin; Z79.02 Long term (current) use of antithrombotics/antiplatelets; Z87.891 Personal history of nicotine dependence; Z92.3 Personal history of irradiation; Z85.21 Personal history of malignant neoplasm of larynx
CPT/HCPCS: 71045; 80053; 81003; 83690; 85025; 93005; 99284

== ENCOUNTER → 2021-12-25 10:11 | Outpatient (BNVA) | payer MEDICARE, SELFPAY | PROVIDERS: PCP Nurse Practitioner; Referring Provider Nurse Practitioner; Visit Provider Surgery | DX: K57.92 Diverticulitis of intestine, part unspecified, without perforation or abscess without bleeding (principal) | CPT/HCPCS: 99213 ==

== ENCOUNTER → 2022-01-23 14:41 | Outpatient (BNVA) | payer MEDICARE, SELFPAY | PROVIDERS: PCP Nurse Practitioner; Visit Provider Internal Medicine Cardiovascular Disease | DX: I10 Essential (primary) hypertension (principal); I73.9 Peripheral vascular disease, unspecified; E78.5 Hyperlipidemia, unspecified; J44.9 Chronic obstructive pulmonary disease, unspecified; Z87.891 Personal history of nicotine dependence; R06.02 Shortness of breath | CPT/HCPCS: 99214 ==

== ENCOUNTER → 2022-01-24 09:18 | Outpatient (BNVA) | payer MEDICARE, SELFPAY | PROVIDERS: PCP Nurse Practitioner; Visit Provider Surgery | DX: K57.92 Diverticulitis of intestine, part unspecified, without perforation or abscess without bleeding (principal); K59.00 Constipation, unspecified | CPT/HCPCS: 99213 ==

== ENCOUNTER 2022-03-28 06:57 | Day surgery (SDC) | payer MEDICARE, SELFPAY ==
[2022-03-26 10:49] VITALS: BMI 28.7
[2022-03-28 07:17] VITALS: BP 158/81; PULSE 52; RESP 18; TEMP 36.4; O2SAT 97
[2022-03-28] MEDS: sodium chloride 0.9% 1,000 ML 30 ML IV (07:30)
--- NOTE | 2022-03-28 08:10 | PM.HP ---
Providers/Chief Complaint Primary Care Provider: Mary Ann Edwards APN Chief Complaint: Abdominal pain History of Present Illness Tristian Hernandez is a 66 year old male who recently had diverticulitis and is here for a follow-up colonoscopy Review of Systems General: Reports: 10 or more systems reviewed and unremarkable except in HPI and below Medications/Allergies Home Medications Medication Instructions Recorded Confirmed Last Taken Type albuterol sulfate 90 mcg/actuation 2 puff inhalation Q6H PRN 11/10/19 03/28/22 03/27/22 History aerosol inhaler (ProAir HFA) Shortness Of Breath aspirin 81 mg tablet,delayed 81 mg PO DAILY 11/10/19 03/28/22 03/26/22 History release (Adult Low Dose Aspirin) atenolol 25 mg tablet 25 mg PO DAILY 11/10/19 03/28/22 03/27/22 History fluticasone propionate 50 1 spray intranasal DAILY PRN 11/10/19 03/28/22 03/27/22 History mcg/actuation nasal Allergy Symptoms spray,suspension (Flonase Allergy Relief) levothyroxine 50 mcg capsule 50 mcg PO DAILY 11/10/19 03/28/22 03/27/22 History atorvastatin 20 mg tablet See Rx Instructions .Route 08/21/21 03/28/22 03/27/22 Rx .COMPLEX #90 tabs amlodipine 5 mg tablet 5 mg PO DAILY #30 tabs 08/28/21 03/28/22 03/27/22 Rx isosorbide mononitrate 30 mg 30 mg PO DAILY #90 tabs 11/23/21 03/28/22 03/27/22 Rx tablet,extended release 24 hr clopidogrel 75 mg tablet 75 mg PO DAILY #90 tabs 02/26/22 03/28/22 03/23/22 Rx Allergies Allergy/AdvReac Type Severity Reaction Status Date / Time Penicillins Allergy UNK Verified 03/28/22 07:16 PFSH Acute PFSH: Medical History Acute diverticulitis Asthma Claudication of lower extremity with history of revascularization COPD (chronic obstructive pulmonary disease) Dyslipidemia Hematochezia History of glottic cancer History of radiation therapy History of skin cancer HTN (hypertension) Peripheral Vascular Disease Varicose veins of anus or rectum Surgical History History of colonoscopy 3 to 4years History of skin surgery S/P appendectomy S/P cholecystectomy S/P knee surgery Left Social History Smoking and tobacco status: former smoker History of recent travel: No Vitals/I&O/Wt Last Vital Signs Temp 97.5 F L 03/28/22 07:17 Pulse 52 L 03/28/22 07:17 Resp 18 03/28/22 07:17 BP 158/81 03/28/22 07:17 Pulse Ox 97 03/28/22 07:17 O2 Del Method 03/28/22 07:17 Weight last 48 hrs Weight 200 lb A&P Assessment and plan (1) Acute diverticulitis: Status: Acute Plan Colonoscopy The risks and benefits of the procedure, including bleeding, infection, intestinal perforation requiring surgery, missed lesion, or explained to the patient. He is understanding of the risks and wishes to proceed. Attestations Medical Necessity Statement*: Patient will be discharged home Coding Level of Care Code Acute Senior Revenue Accountant for rafal Sanford Diagnoses Acute diverticulitis K57.92
--- NOTE | 2022-03-28 08:27 | ANES.PREANE2 ---
Pre-Anesthetic Assessment Height/Weight: Height 1.78 m Weight 90.718 kg Temp Pulse Resp BP Pulse Ox O2 Del Method 97.5 F L 52 L 18 158/81 97 03/28/22 07:17 03/28/22 07:17 03/28/22 07:17 03/28/22 07:17 03/28/22 07:17 03/28/22 07:17 Preop Diagnosis: Severe peripheral vascular disease with history of stent in the past lifestyle limiting claudication Operation Date: 03/28/22 08:30 Proposed Procedures p Colonoscopy 56262,K59.0,K57.92(Not Applicable) - Tyler Ovalle DO Familial anesthetic complications: none Was Beta Aspen taken within 24 hours: N/A Was Clonidine taken within 24 hours: N/A Last intake: Intake Last Liquid Date 03/27/22 Last Liquid Time 23:30 Last Solid Date 03/26/22 Last Solid Time 22:00 Last Intake: 22:00 (03/26) Social No alcohol and No tobacco medicinal MJ Exam alert and oriented x 3 Airway Submandibular: within normal limits Cervical ROM: within normal limits Mallampati: Class II Dentition: false (uppers) History/ROS No significant history except as noted Pulmonary Chronic Obstructive Pulmonary Disease CV/HEM Hypertension and Peripheral Vascular Disease (stents x7) None reported Hepatic None reported GI None reported Metabolic Thyroid Disease Musc/skel Lower Back Pain Neuropsych None reported Anesthetic Plan ASA status: 3 Anesthesia: Anesthesia Evaluation and MAC Risk of > 500 ml blood loss (7ml/kg in children): No Medications/Allergies Home Medications Medication Instructions Recorded Confirmed Last Taken Type albuterol sulfate 90 mcg/actuation 2 puff inhalation Q6H PRN 11/10/19 03/28/22 03/27/22 History aerosol inhaler (ProAir HFA) Shortness Of Breath aspirin 81 mg tablet,delayed 81 mg PO DAILY 11/10/19 03/28/22 03/26/22 History release (Adult Low Dose Aspirin) atenolol 25 mg tablet 25 mg PO DAILY 11/10/19 03/28/22 03/27/22 History fluticasone propionate 50 1 spray intranasal DAILY PRN 11/10/19 03/28/22 03/27/22 History mcg/actuation nasal Allergy Symptoms spray,suspension (Flonase Allergy Relief) levothyroxine 50 mcg capsule 50 mcg PO DAILY 11/10/19 03/28/22 03/27/22 History atorvastatin 20 mg tablet See Rx Instructions .Route 08/21/21 03/28/22 03/27/22 Rx .COMPLEX #90 tabs amlodipine 5 mg tablet 5 mg PO DAILY #30 tabs 08/28/21 03/28/22 03/27/22 Rx isosorbide mononitrate 30 mg 30 mg PO DAILY #90 tabs 11/23/21 03/28/22 03/27/22 Rx tablet,extended release 24 hr clopidogrel 75 mg tablet 75 mg PO DAILY #90 tabs 02/26/22 03/28/22 03/23/22 Rx Allergies Allergy/AdvReac Type Severity Reaction Status Date / Time Penicillins Allergy UNK Verified 03/28/22 07:16 Current Medications Generic Name Dose Route Start Last Admin Trade Name Freq PRN Reason Stop Dose Admin Sodium Chloride 1,000 mls @ 30 mls/hr 03/28/22 07:15 03/28/22 07:30 Sodium Chloride 0.9% IV 03/29/22 07:14 30 mls/hr .Q24H GAEL Administration PFSH Anesthesia Medical History Acute diverticulitis Asthma Claudication of lower extremity with history of revascularization COPD (chronic obstructive pulmonary disease) Dyslipidemia Hematochezia History of glottic cancer History of radiation therapy History of skin cancer HTN (hypertension) Peripheral Vascular Disease Varicose veins of anus or rectum Surgical History History of colonoscopy 3 to 4years History of skin surgery S/P appendectomy S/P cholecystectomy S/P knee surgery Left Social History Smoking and tobacco status: former smoker History of recent travel: No Data Anesthesia Cardiac Studies: No Data to Display
[2022-03-28 08:50] VITALS: BP 140/75; PULSE 59; RESP 18; TEMP 36.2; O2SAT 95
[2022-03-28 09:01] VITALS: BP 117/97; PULSE 48; RESP 18; TEMP 36.2; O2SAT 96
--- NOTE | 2022-03-28 11:58 | ANE.PACU2 ---
Inpatient post-anesthesia follow up: Airway intact: Yes Vital signs: Temperature 97.2 F Pulse Rate 48 Respiratory Rate 18 Blood Pressure 117/97 Pulse Oximetry 96 Oxygen Delivery Me thod Room Air Oxygen Flow Rate Fraction of Inspir ed Oxygen Hydration adequate: Yes Nausea and vomiting: No Pain level: 1 Mental status: Baseline
== END 2022-03-28 09:17 | disposition home or self-care (01) ==
PROVIDERS: PCP Nurse Practitioner; Visit Provider Surgery
PROC: 0DJD8ZZ Inspection of Lower Intestinal Tract, Via Natural or Artificial Opening Endoscopic (ICD-10-PCS; CPT 45378; principal; 2022-03-28 08:30)
DX: K59.00 Constipation, unspecified (principal); K57.92 Diverticulitis of intestine, part unspecified, without perforation or abscess without bleeding; K57.30 Diverticulosis of large intestine without perforation or abscess without bleeding; J44.9 Chronic obstructive pulmonary disease, unspecified; I10 Essential (primary) hypertension; I73.9 Peripheral vascular disease, unspecified; Z79.82 Long term (current) use of aspirin; E78.5 Hyperlipidemia, unspecified; Z85.89 Personal history of malignant neoplasm of other organs and systems; Z92.3 Personal history of irradiation; Z87.891 Personal history of nicotine dependence
CPT/HCPCS: G0121; J2704; J7030

== ENCOUNTER 2022-06-06 14:41 | Outpatient (CLI) | payer MEDICARE, SELFPAY ==
--- NOTE | 2022-06-06 15:00 | USCV_ITS ---
Tristian Hernandez Age: 66 Gender: M : 1955 Exam Date: 06/06/2022 15:10 Ordering Phys: Yessenia Wallis MD ([email or web address]) Technologist: ANTONIO Exam Location: [facility] – [place] Indication: Shortness of breath BP: 135 / 74 HR: 47 Rhythm: Sinus Technical Quality: Adequate MEASUREMENTS (Male / Female) Normal Values 2D ECHO LV Diastolic Diameter PLAX 5.0 cm 4.2 - 5.9 / 3.9 - 5.3 cm LV Systolic Diameter PLAX 3.3 cm IVS Diastolic Thickness 0.9 cm 0.6 - 1.0 / 0.6 - 0.9 cm IVS Systolic Thickness 1.2 cm LVPW Diastolic Thickness 1.6 cm 0.6 - 1.0 / 0.6 - 0.9 cm LVPW Systolic Thickness 1.5 cm LVOT Diameter 2.0 cm LV Ejection Fraction 2D Teich 63.8 % LV Ejection Fraction MOD 2C 68.1 % LV Ejection Fraction 2C AL 67.5 % LA Diameter 3.6 cm LA Width 2.5 cm LA Height 4.8 cm RA Width 3.3 cm RA Height 4.5 cm Aorta at Sinotubular Diameter 3.0 cm IVC Diameter 2.0 cm M-MODE Aortic Annulus Diameter 3.3 cm LA Ao Ratio MM 1.1 MV E Point Septal Separation 0.8 cm DOPPLER AV Peak Velocity 135.0 cm/s LVOT Peak Velocity 92.0 cm/s AV Area Cont Eq vti 2.2 cm squared AV Area Cont Eq pk 2.2 cm squared MV Peak Velocity 104.0 cm/s MV Area PHT 3.6 cm squared Mitral E to A Ratio 0.8 MV E' Velocity 40.5 cm/s Mitral E to MV E' Ratio 8.1 Mitral E to LV E' Lateral Ratio 7.1 Mitral E to LV E' Septal Ratio 9.6 TR Peak Velocity 393.6 cm/s TR Peak Gradient 62.0 mmHg TR Mean Velocity 328.0 cm/s TR Mean Gradient 44.1 mmHg TR Velocity Time Integral 113.4 cm Right Atrial Pressure 3.0 mmHg Pulmonary Artery Systolic Pressu 65.0 mmHg PV Peak Velocity 89.0 cm/s RV Acceleration Time 0.1 s RV Ejection Time 0.3 s RV AcT/ET 0.5 FINDINGS Left Ventricle Normal left ventricular size, systolic function and wall thickness, with no regional wall motion abnormalities. Left ventricular ejection fraction is estimated at 65 %. Normal diastolic function. Right Ventricle Normal right ventricular size and systolic function. RVSP could not be calculated due to incomplete tricuspid regurgitation velocity profile. Right Atrium Normal right atrial size. Left Atrium Normal left atrial size. Mitral Valve Structurally normal mitral valve. No mitral valve stenosis. No significant mitral valve regurgitation. Aortic Valve Structurally normal trileaflet aortic valve. No aortic valve stenosis. Mild aortic valve regurgitation. Tricuspid Valve Structurally normal tricuspid valve. No tricuspid valve stenosis. Trace tricuspid valve regurgitation. Pulmonic Valve Structurally normal pulmonic valve. No pulmonary valve stenosis. No pulmonary valve regurgitation. Pericardium No pericardial effusion. Aorta Normal size aortic root and proximal ascending aorta. IVC Normal IVC dimension with >50% respiratory change of the inferior vena cava. CONCLUSIONS 1. Normal left ventricular size, systolic function and wall thickness, with no regional wall motion abnormalities. Left ventricular ejection fraction is estimated at 65 %. Normal diastolic function. 2. Normal right ventricular size and systolic function. 3. Mild aortic valve regurgitation. 4. No prior similar studies to compare. Yessenia Wallis MD (Electronically Signed) Final Date: 10 June 2022 10:08 S
== END 2022-06-06 14:42 | disposition home or self-care (01) ==
LOC: RAD 14:44
PROVIDERS: PCP Nurse Practitioner; Visit Provider Internal Medicine Cardiovascular Disease
DX: R06.02 Shortness of breath (principal); I35.1 Nonrheumatic aortic (valve) insufficiency
CPT/HCPCS: 93306

== ENCOUNTER 2022-09-25 16:27 | Emergency (ER) | payer MEDICARE, SELFPAY ==
[2022-09-25 16:41] VITALS: BP 168/89; PULSE 50; RESP 24; TEMP 36.7; O2SAT 97; BMI 29.5
[2022-09-25 19:00] VITALS: BP 179/94; PULSE 55; O2SAT 100
--- NOTE | 2022-09-25 19:11 | XRR_ITS ---
PROCEDURE INFORMATION: Exam: XR Abdomen Exam date and time: 09/25/2022 8:04 PM Age: 66 years old Clinical indication: Bloating and constipation; Prior surgery; Surgery type: Appendix / gallbladder; Additional info: Bloating; Constipation TECHNIQUE: Imaging protocol: Radiologic exam of the abdomen. Views: Frontal supine view of the abdomen. 1 View. COMPARISON: CT angio abd aorta runof [id number] 02/25/2020 9:28 AM FINDINGS: Gastrointestinal tract: There is a large amount of stool throughout the large bowel likely reflecting some degree of constipation. Vasculature: There are bilateral vascular stents within the iliac vessels. Bones/joints: Moderate degenerative changes right hip joint progressed from previous exam with accompanying contour deformity of the femoral head. Cannot rule out underlying AVN which could be better assessed on MRI examination of the right hip. Other findings: No suspicous calcifications. XR/XR abdomen 1V* [id number] IMPRESSION: 1. Probable constipation. 2. Nonspecific bone changes right hip joint as discussed above.
--- NOTE | 2022-09-25 19:12 | XRR_ITS ---
PROCEDURE INFORMATION: Exam: XR Chest Exam date and time: 09/25/2022 8:04 PM Age: 66 years old Clinical indication: Dyspnea and shortness of breath; Prior surgery; Surgery date: 6+ months; Surgery type: Gallbladder/ appendix TECHNIQUE: Imaging protocol: Radiologic exam of the chest. Views: 1 view. COMPARISON: CR XR chest 1V portable [id number] 11/07/2021 5:20 PM FINDINGS: Lungs: Unremarkable. No consolidation. Pleural spaces: Unremarkable. No pleural effusion. No pneumothorax. Heart/Mediastinum: Unremarkable. No cardiomegaly. Bones/joints: Unremarkable for age. XR/XR chest 1V portable [id number] IMPRESSION: Negative chest
[2022-09-25 19:21] LABS: Basophils # 0.1 10^3/uL (0.0-0.1); Basophils % 1.1 %; Eosinophils # 0.4 10^3/uL (0.0-0.8); Hematocrit 46.4 % (42.0-52.0); Hemoglobin 15.7 g/dL (11.7-16.6); Lymphocytes # 1.6 10^3/uL (0.8-4.8); Lymphocytes % 13.4 %; Mean Corpuscular HGB Conc 33.8 g/dL (30.0-36.0); Mean Corpuscular Hemoglobin 29.9 pg (28.0-34.0); Mean Corpuscular Volume 88.4 fl (80-94); Mean Platelet Volume 10.5 fL (7.4-10.4); Monocytes # 0.8 10^3/uL (0.2-0.9); Monocytes % 6.7 %; Neutrophils # 9.11 10^3/uL (1.8-7.7); Neutrophils % 75.4 %; Nucleated Red Blood Cells % 0 %; Platelet Count 280 10^3/cmm (130-400); Red Blood Count 5.25 10^6/uL (4.1-5.3); Red Cell Distribution Width 13.2 % (12.1-15.1); White Blood Count 12.1 10^3/uL (4.0-10.0)
[2022-09-25 19:34] LABS: ABG PCO2 21.6 mmHg (35-45); ABG PH Result 7.58 (7.35-7.45); Alveolar-Arterial Oxygen Gradi 0.8 mmHg (5-10); Arterial Blood Gas Hematocrit 16.7 % (42-52); Base Excess ABG -1.9 mmol/L (-2.0-2.0); Blood Gas Allen Test Pos; Blood Gas Sample Site Radial, left; Blood Gas Sample Type Arterial; Carboxyhemoglobin < 0.0 %THgb (0.4-20.1); HGB O2 Sat > 100.0 % (95-100); Ionized Calcium Level - ABG 1.2 mmol/L (1.1-1.4); Methemoglobin < 0.0 % (0.4-1.5); Oxygen Saturation ABG 97.8; Potassium Level - ABG 3.6 mmol/L (3.5-5.0); Total Hemoglobin 5.5 g/dL (14-18)
[2022-09-25 19:37] LABS: Lactic Sepsis W/Reflex 1.8 mmol/L (0.5-2.2)
[2022-09-25 19:39] LABS: Troponin(5th) Baseline 7 ng/L (0-15)
[2022-09-25 19:47] LABS: Alanine Aminotransferase 11 U/L (0-41); Albumin Level 4.9 g/dL (3.5-5.2); Alkaline Phosphatase 163 U/L (40-130); Anion Gap 19.2 (5-19); Aspartate Amino Transferase 18 U/L (0-40); Blood Urea Nitrogen 7 mg/dL (8-23); Carbon Dioxide 24 mmol/L (22-29); Chloride 108 mmol/L (98-107); Creatinine Clr Calc Pharmacy 84.5583; Globulin 1.8 g/dL (1.3-4.6); Glucose 90 mg/dL (65-115); Lipase 45 U/L (13-60); NT Pro B Type Natriuretic Pept 215 pg/mL (0-125); Osmolality Calculated 302 mOsm/kg (285-295); Potassium 4.2 mmol/L (3.5-5.1); Sodium 147 mmol/L (136-145); Total Bilirubin 1.2 mg/dL (0.15-1.2); Total Protein 6.7 g/dL (6.6-8.7)
[2022-09-25 19:56] LABS: Influenza A by IFA negative (Negative); Influenza B by IFA negative (Negative); SARS Covid-2 Antigen negative (Negative)
[2022-09-25 20:02] LABS: Urine Appearance Clear (CLEAR); Urine Color Light yellow (Yellow); pH Urine 8 (5-7)
[2022-09-25 20:03] LABS: Add Urine Culture? No; Bilirubin Urine Neg (Negative); Blood Urine Neg (Negative); Glucose Urine UA Norm (Normal); Ketones Urine 1+ (Negative); Leukocyte Esterase Urine Negative (Negative); Nitrate Urine Negative (Negative); Protein Urine Neg (Negative); Squamous Epithelial Cell Urine RARE /hpf (0-5); Urobilinogen Urine Neg (Negative)
--- NOTE | 2022-09-25 20:06 | W.ED.ABDPA2 ---
HPI - Abdominal Pain General: Chief Complaint: Abdominal Pain Stated Complaint: abd pain/bloating/sob Time Seen by Provider: 09/25/22 19:00 Source: patient Mode of arrival: ambulatory Limitations: no limitations History of Present Illness: See nursing assessment. Patient with complaints of 1 month history of abdominal bloating. He also complains of intermittent constipation. Complains of mild epigastric Reynold pain. States he feels short of breath due to his abdominal bloating. He is hyperventilating and anxious at this time. 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 He does have a history of diverticulitis, hypertension, peripheral vascular disease, COPD. He is allergic to penicillin. Past surgical history includes appendectomy and cholecystectomy. Associated Symptoms: Reports bloating and constipation; Denies chills, GI cramping, diarrhea, fever(s), nausea and vomiting Review of Systems Const: Denies: fever(s) or chills Eyes: Denies: change in vision ENMT: Denies: throat pain Card: Denies: chest pain or palpitations Resp: Reports: dyspnea; Denies: productive cough, non-productive cough or wheezing GI: Reports: abdominal pain, constipation and bloating; Denies: nausea, vomiting, diarrhea or GI cramping : Denies: flank pain Musc: Denies: neck pain, back pain, extremity pain or extremity swelling Skin/Breast: Reports: other (Patient does have excoriations to his scalp and lower legs bilaterally.); Denies: rash or pruritus Neuro: Denies: headache(s) or numbness in extremities Rinku/Lymph: Denies: enlarged lymph nodes PFSH ED PFSH: Medical History Acute diverticulitis Asthma Claudication of lower extremity with history of revascularization COPD (chronic obstructive pulmonary disease) Dyslipidemia Hematochezia History of glottic cancer History of radiation therapy History of skin cancer HTN (hypertension) Peripheral Vascular Disease Varicose veins of anus or rectum Surgical History History of colonoscopy 3 to 4years History of skin surgery S/P appendectomy S/P cholecystectomy S/P knee surgery Left Social History Smoking and tobacco status: former smoker History of recent travel: No Physical Exam Const: COMMON NORMALS: patient oriented x3, no limitations and well nourished GENERAL APPEARANCE: cooperative HENMT: COMMON NORMALS: normocephalic and atraumatic HEAD & SCALP: normocephalic and atraumatic FACE & SINUS: normal facial exam Eye: COMMON NORMALS: EOMs intact bilaterally Neck/C-Spine: COMMON NORMALS: full ROM, no lymphadenopathy, supple and no meningeal signs GENERAL: Yes normal visual inspection Lymph: LYMPHATIC: no lymphadenopathy noted Chest: COMMONS NORMALS: normal inspection of the chest and normal palpation of entire chest wall CHEST: No Ecchymosis present and No rash Resp: COMMON NORMALS: normal respiratory effort, No retractions and clear to auscultation bilaterally EFFORT & INSPECTION: No respiratory distress AUSCULTATION: clear to auscultation bilaterally Cardio: COMMON NORMALS: regular rate, regular rhythm and Peripheral pulses 2+ throughout JUGULAR VENOUS DISTENTION: no JVD RATE: regular rate RHYTHM: regular rhythm PERIPHERAL PULSES: Peripheral pulses 2+ throughout GI: COMMON NORMALS: Normal to inspection, nondistended, normoactive bowel sounds present OTHER: Mild epigastric abdominal pain. Bloating noticed. Abdomen soft. No masses palpated. No hepatosplenomegaly. : COMMON NORMALS: Yes no CVA tenderness BLADDER/KIDNEY EXAM: Yes no CVA tenderness Back/Pelvis: COMMON NORMALS: no CVA tenderness Extremity: COMMON NORMALS: normal to inspection, full ROM and capillary refill normal Neuro: COMMON NORMALS: patient oriented x3, CN's II-XII intact bilaterally, no focal motor deficits and no sensory deficits noted MENINGEAL SIGNS: Yes no meningeal signs Psych: COMMON NORMALS: mental status grossly normal and Normal thought process present THOUGHT PROCESS: Normal thought process present OTHER: Moderate anxiety, hyperventilation. Skin: COMMON NORMALS: no rashes or lesions noted GENERAL SKIN EXAM: no rashes or lesions noted OTHER: Few superficial excoriations to the scalp and bilateral lower legs. Course Vital Signs: Vital signs: Vital Signs Temperature 98.0 F 09/25/22 16:41 Pulse Rate 62 09/25/22 20:19 Respiratory Rate 24 H 09/25/22 16:41 Blood Pressure 170/87 09/25/22 20:19 Pulse Oximetry 100 09/25/22 20:19 Oxygen Delivery Me thod 09/25/22 20:19 MDM - Abdominal Pain Medical Decision Making Patient is obviously anxious and hyperventilating. Patient does not appear to have a surgical abdomen at this time. Arterial blood gas confirms his hyperventilation. Is a pH 7.57 with a PCO2 of 21 PO2 is 112 on room air. 2120: Patient is feeling much better. CT scan shows nothing acute. He does have diverticulosis. Since his white blood cell count is slightly elevated and neutrophil count is in the upper limits of normal, will place patient on Levaquin for approximately 5 days in case patient has early diverticulitis that is not showing up on CT scan. I did field hockey and lacrosse coach the patient on hyperventilation syndrome. Lab Data 09/25/22 18:58 09/25/22 18:58 Labs/Radiology: Radiology Impressions Abdomen X-Ray 09/25/22 19:11 IMPRESSION: 1. Probable constipation. 2. Nonspecific bone changes right hip joint as discussed above. Chest X-Ray 09/25/22 19:12 IMPRESSION: Negative chest Abdomen/Pelvis CT 09/25/22 20:05 IMPRESSION: 1. Colonic diverticulosis. No evidence of acute diverticulitis. 2. Moderate degree of retained stool involving the remainder of the large bowel likely reflecting some degree of constipation. 3. Prominent vascular calcifications both renal hilum limiting assessment for nonobstructing calculi. 4. Degenerative changes right hip joint. No evidence of AVN. 5. Additional nonemergent findings as above. COMMENTS: Consistent with the [employer]'s Incidental Findings Committee white paper (J Am Cody Radiol 2018): Any incidental renal lesion less than 1 cm or classified as too small to characterize, or any incidental cystic renal lesion characterized as simple-appearing, is likely benign. No follow-up imaging is recommended for these lesions per consensus recommendations based on imaging criteria. Laboratory Results WBC 12.1 10^3/uL (4.0-10.0) H 09/25/22 18:58 RBC 5.25 10^6/uL (4.1-5.3) 09/25/22 18:58 Hgb 15.7 g/dL (11.7-16.6) 09/25/22 18:58 Hct 46.4 % (42.0-52.0) 09/25/22 18:58 MCV 88.4 fl (80-94) 09/25/22 18:58 MCH 29.9 pg (28.0-34.0) 09/25/22 18:58 MCHC 33.8 g/dL (30.0-36.0) 09/25/22 18:58 RDW 13.2 % (12.1-15.1) 09/25/22 18:58 Plt Count 280 10^3/cmm (130-400) 09/25/22 18:58 MPV 10.5 fL (7.4-10.4) H 09/25/22 18:58 Neut % (Auto) 75.4 % 09/25/22 18:58 Lymph % (Auto) 13.4 % 09/25/22 18:58 [place] % (Auto) 6.7 % 09/25/22 18:58 Eos % (Auto) 3.0 % 09/25/22 18:58 Baso % (Auto) 1.1 % 09/25/22 18:58 Neut # (Auto) 9.11 10^3/uL (1.8-7.7) H 09/25/22 18:58 Lymph # (Auto) 1.6 10^3/uL (0.8-4.8) 09/25/22 18:58 [place] # (Auto) 0.8 10^3/uL (0.2-0.9) 09/25/22 18:58 Eos # (Auto) 0.4 10^3/uL (0.0-0.8) 09/25/22 18:58 Baso # (Auto) 0.1 10^3/uL (0.0-0.1) 09/25/22 18:58 Nucleated RBC % (auto) 0 % 09/25/22 18:58 Nucleated RBCs # 0.0 /100WBC 09/25/22 18:58 Specimen Type Arterial 09/25/22 19:22 Sample Site Radial, left 09/25/22 19:22 ABG pH 7.58 (7.35-7.45) H* 09/25/22 19:22 ABG pCO2 21.6 mmHg (35-45) L 09/25/22 19:22 ABG pO2 112.0 mmHg (80.0-100.0) H 09/25/22 19:22 ABG HCO3 20.0 mmol/L (22-26) L 09/25/22 19:22 ABG O2 Saturation 97.8 09/25/22 19:22 ABG Base Excess -1.9 mmol/L (-2.0-2.0) 09/25/22 19:22 Shamar Test Pos 09/25/22 19:22 A-a O2 Gradient 0.8 mmHg (5-10) L 09/25/22 19:22 Hematocrit 16.7 % (42-52) L 09/25/22 19:22 Hgb O2 Saturation > 100.0 % (95-100) H 09/25/22 19:22 Carboxyhemoglobin < 0.0 %THgb (0.4-20.1) L 09/25/22 19:22 Methemoglobin < 0.0 % (0.4-1.5) L 09/25/22 19:22 Total Hemoglobin 5.5 g/dL (14-18) L 09/25/22 19:22 Sodium 143.0 mmol/L (131-143) 09/25/22 19:22 Potassium 3.6 mmol/L (3.5-5.0) 09/25/22 19:22 Glucose 93.0 mg/dL (70-115) 09/25/22 19:22 Ionized Calcium 1.2 mmol/L (1.1-1.4) 09/25/22 19:22 O2 Delivery Device None 09/25/22 19:22 FiO2 21.0 % 09/25/22 19:22 Quantitative Research Analyst ID [id number] 09/25/22 19:22 Sodium 147 mmol/L (136-145) H 09/25/22 18:58 Potassium 4.2 mmol/L (3.5-5.1) 09/25/22 18:58 Chloride 108 mmol/L (98-107) H 09/25/22 18:58 Carbon Dioxide 24 mmol/L (22-29) 09/25/22 18:58 Anion Gap 19.2 (5-19) H 09/25/22 18:58 BUN 7 mg/dL (8-23) L 09/25/22 18:58 Creatinine 1.0 mg/dL (0.7-1.2) 09/25/22 18:58 GFR Calculation 75.0 mL/min (90-130) L 09/25/22 18:58 Glucose 90 mg/dL (65-115) 09/25/22 18:58 Calculated Osmolality 302 mOsm/kg (285-295) H 09/25/22 18:58 Lactic Acid 1.8 mmol/L (0.5-2.2) 09/25/22 18:58 Calcium 10.0 mg/dL (8.5-10.5) 09/25/22 18:58 Total Bilirubin 1.2 mg/dL (0.15-1.2) 09/25/22 18:58 AST 18 U/L (0-40) 09/25/22 18:58 ALT 11 U/L (0-41) 09/25/22 18:58 Alkaline Phosphatase 163 U/L (40-130) H 09/25/22 18:58 Troponin T Baseline 7 ng/L (0-15) 09/25/22 18:58 Troponin T 120 Minute 12.82 ng/L (0-15) 09/25/22 20:46 NT-Pro-B Natriuret Pep 215 pg/mL (0-125) H 09/25/22 18:58 Total Protein 6.7 g/dL (6.6-8.7) 09/25/22 18:58 Albumin 4.9 g/dL (3.5-5.2) 09/25/22 18:58 Globulin 1.8 g/dL (1.3-4.6) 09/25/22 18:58 Lipase 45 U/L (13-60) 09/25/22 18:58 Urine Color Light yellow (Yellow) 09/25/22 19:25 Urine Appearance Clear (CLEAR) 09/25/22 19:25 Urine pH 8 (5-7) H 09/25/22 19:25 Ur Specific [place] 1.010 (1.005-1.030) 09/25/22 19:25 Urine Protein Neg (Negative) 09/25/22 19:25 Urine Glucose (UA) Norm (Normal) 09/25/22 19:25 Urine Ketones 1+ (Negative) H 09/25/22 19:25 Urine Blood Neg (Negative) 09/25/22 19:25 Urine Nitrate Negative (Negative) 09/25/22 19:25 Urine Bilirubin Neg (Negative) 09/25/22 19:25 Urine Urobilinogen Neg mg/dL (Negative) 09/25/22 19:25 Ur Leukocyte Esterase Negative (Negative) 09/25/22 19:25 Urine RBC None /hpf (0-2) 09/25/22 19:25 Urine WBC None /hpf (0-5) 09/25/22 19:25 Ur Squamous Epith Cells Rare /hpf (0-5) 09/25/22 19:25 Amorphous Sediment Not Reportable 09/25/22 19:25 Urine Bacteria None /hpf (NONE) 09/25/22 19:25 Influenza Type A Ag negative (Negative) 09/25/22 19:20 Influenza Type B Ag negative (Negative) 09/25/22 19:20 SARS-CoV-2 Ag (Rapid) negative (Negative) 09/25/22 19:20 Imaging Data CXR: My impression: Nothing acute. No effusions, infiltrates, or pneumothorax. No free air under the diaphragm. Radiologist's impression: PROCEDURE INFORMATION: Exam: XR Chest Exam date and time: 09/25/2022 8:04 PM Age: 66 years old Clinical indication: Dyspnea and shortness of breath; Prior surgery; Surgery date: 6+ months; Surgery type: Gallbladder/ appendix TECHNIQUE: Imaging protocol: Radiologic exam of the chest. Views: 1 view. COMPARISON: CR XR chest 1V portable [id number] 11/07/2021 5:20 PM FINDINGS: ?Lungs: Unremarkable. No consolidation. ?Pleural spaces: Unremarkable. No pleural effusion. No pneumothorax. ?Heart/Mediastinum: Unremarkable. No cardiomegaly. ?Bones/joints: Unremarkable for age. XR/XR chest 1V portable [id number] IMPRESSION: Negative chest ? Dictated By: Luis Souza MD Signed By: Luis Souza MD Signed Date/Time: 09/25/222057 KUB: My impression: Nothing acute. Patient has moderate stool throughout the colon. No obstruction seen. Patient has surgical clips in the right upper quadrant. Radiologist's impression: PROCEDURE INFORMATION: Exam: XR Abdomen Exam date and time: 09/25/2022 8:04 PM Age: 66 years old Clinical indication: Bloating and constipation; Prior surgery; Surgery type: Appendix / gallbladder; Additional info: Bloating; Constipation TECHNIQUE: Imaging protocol: Radiologic exam of the abdomen. Views: Frontal supine view of the abdomen. 1 View. COMPARISON: CT angio abd aorta runof [id number] 02/25/2020 9:28 AM FINDINGS: Gastrointestinal tract: There is a large amount of stool throughout the large bowel likely reflecting some degree of constipation. Vasculature: There are bilateral vascular stents within the iliac vessels. Bones/joints: Moderate degenerative changes right hip joint progressed from previous exam with accompanying contour deformity of the femoral head. Cannot rule out underlying AVN which could be better assessed on MRI examination of the right hip.? Other findings: No suspicous calcifications. XR/XR abdomen 1V* [id number] IMPRESSION: 1. Probable constipation. 2. Nonspecific bone changes right hip joint as discussed above. ? Dictated By: Luis Souza MD Signed By: Luis Souza MD Signed Date/Time: 09/25/222100 CT Abd/Pel: Radiologist's impression: PROCEDURE INFORMATION: Exam: CT Abdomen And Pelvis With Contrast Exam date and time: 09/25/2022 8:28 PM Age: 66 years old Clinical indication: Pain and abnormal findings; Abnormal lab test; Abdominal pain; Generalized; Prior surgery; Surgery type: Glottis. Gb. Appy. Patient HX: C/O abd pain with constipation. Elevated wbc. History of glottic cancer. ; Additional info: Upper abd pain; Wbc 12k TECHNIQUE: Imaging protocol: Computed tomography of the abdomen and pelvis with contrast. Radiation optimization: All CT scans at this facility use at least one of these dose optimization techniques: automated exposure control; mA and/or kV adjustment per patient size (includes targeted exams where dose is matched to clinical indication); or iterative reconstruction. Contrast material: OMNI 350; Contrast volume: 100 ml; Contrast route: INTRAVENOUS (IV);? Other protocol: This patient has received 0 known CTs and 0 known cardiac nuclear medicine studies in the 12 months prior to the current study. COMPARISON: CR (ABDOMEN, ) 09/25/2022 8:04 PM RADIATION DOSE METRICS: Total DLP (mGy-cm): 763.83 FINDINGS: Lungs: Lung bases are clear. Liver: There is mild fatty infiltration of the liver with 2 cm benign-appearing liver cyst right lobe. Gallbladder and bile ducts: Gallbladder has been removed. Bile ducts are not appreciably dilated. Pancreas: Scattered punctate calcifications within the pancreas that may be secondary to chronic calcific pancreatitis. Pancreas is otherwise unremarkable. Main pancreatic duct is not dilated. Spleen: Normal. No splenomegaly. Adrenal glands: Normal. No mass. Kidneys and ureters: Vascular calcifications both renal hilum limiting assessment for superimposed nonobstructing small renal stones. Small cortical cysts both kidneys too small to adequately characterize. Stomach and bowel: Multiple diverticuli descending and sigmoid colon. No evidence of acute diverticulitis. Moderate degree of retained stool throughout the remaining large bowel likely reflecting some degree of constipation. Appendix: No evidence of appendicitis. Intraperitoneal space: Unremarkable. No free air. No significant fluid collection. Vasculature: Diffuse atherosclerotic changes of the abdominal aorta. No aortic aneurysm. Bilateral iliac artery stents in place. Lymph nodes: Unremarkable. No enlarged lymph nodes. Urinary bladder: Unremarkable as visualized. Reproductive: Prostate gland is mildly enlarged. Bones/joints: Moderate degenerative changes right hip joint. No evidence of underlying AVN. Soft tissues: Unremarkable. CT/CT abdomen pelvis w con* [id number] IMPRESSION: 1. Colonic diverticulosis. No evidence of acute diverticulitis. 2. Moderate degree of retained stool involving the remainder of the large bowel likely reflecting some degree of constipation. 3. Prominent vascular calcifications both renal hilum limiting assessment for nonobstructing calculi. 4. Degenerative changes right hip joint. No evidence of AVN. 5. Additional nonemergent findings as above. ? COMMENTS: Consistent with the [employer]'s Incidental Findings Committee white paper (J Am Cody Radiol 2018): Any incidental renal lesion less than 1 cm or classified as too small to characterize, or any incidental cystic renal lesion characterized as simple-appearing, is likely benign. No follow-up imaging is recommended for these lesions per consensus recommendations based on imaging criteria. ? Dictated By: Luis Souza MD Signed By: Luis oSuza MD Signed Date/Time: 09/25/222107 EKG Data EKG 1: I personally reviewed and interpreted this EKG as follows: EKG interpretation date: 09/25/22 EKG interpretation time: 20:48 Interpretation: Impression sinus bradycardia with a heart rate of 56. Anterior scar. Normal axis. Normal QRS. Normal [place] interval, normal QT interval. Normal P waves, normal T waves. Normal ST segment. Discharge Plan Discharge Patient Disposition: Home Clinical Impression: Acute hyperventilation, Abdominal pain, acute, epigastric, Diverticulosis of colon, Acute constipation Condition: Stable Prescriptions: New levofloxacin 750 mg tablet 750 mg PO DAILY 4 Days Qty: 4 0RF Rx Instructions: For possible diverticulitis Senokot Extra Strength 17.2 mg tablet 17.2 mg PO BID PRN (Reason: constipation) Qty: 14 1RF magnesium citrate Solution 296 ml PO DAILY PRN (Reason: constipation) Qty: 296 2RF No Action levothyroxine 50 mcg capsule 50 mcg PO DAILY aspirin [Adult Low Dose Aspirin] 81 mg tablet,delayed release (DR/EC) 81 mg PO DAILY atenolol 25 mg tablet 25 mg PO DAILY fluticasone propionate [Flonase Allergy Relief] 50 mcg/actuation spray,suspension 1 spray INTRANASAL DAILY PRN (Reason: Allergy Symptoms) albuterol sulfate [ProAir HFA] 90 mcg/actuation HFA aerosol inhaler 2 puff INHALATION Q6H PRN (Reason: Shortness Of Breath) atorvastatin 20 mg tablet See Rx Instructions .ROUTE .COMPLEX Qty: 90 0RF Dose Instruction: Take 1 tablet by mouth once daily Rx Instructions: Take 1 tablet by mouth once daily amlodipine 5 mg tablet 5 mg PO DAILY Qty: 30 0RF isosorbide mononitrate 30 mg tablet extended release 24 hr 30 mg PO DAILY Qty: 90 3RF clopidogrel 75 mg tablet 75 mg PO DAILY Qty: 90 3RF Hold Instructions: Resume on 03/31/22. Discharge Orders: Discharge ED (Routine); Ordered 09/25/22 Ordered By: Dirk Lopez Referrals: Mary Ann Edwards, [employer]ED[employer] MECH[employer]IC [Primary Care Provider] - 1-3 days (As needed.) Discharge Diet: Advance as tolerated Discharge Activity: Increase activity as tolerated Patient Instructions: Diverticulitis (ED), Constipation (ED), Diverticulosis (ED), Diverticulitis Diet (ED), Abdominal Pain (ED) Activity Restrictions/Additional Instructions: Your CT scan of the abdomen shows diverticulosis without diverticulitis. You do have moderate constipation. However, your white blood cell count is slightly elevated which may suggest very early diverticulitis. Therefore, take Levaquin 7 or 50 mg tablet once daily for 5 days to help prevent diverticulitis. Return if symptoms worsen. May take [id number] stool softener, Senokot, and/or magnesium citrate to help with constipation. Follow-up with family doctor later this week. Coding Level of Care Code ED Tax Investigator for Manjinder Sanford
[2022-09-25 20:19] VITALS: BP 170/87; PULSE 62; O2SAT 100
[2022-09-25] MEDS: iohexol 350 mg/mL 500 mL Btl (per mL) IV (20:37)
--- NOTE | 2022-09-25 20:46 | ECG_ITS ---
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 Measurements Intervals [place] Rate: 56 P: 65 SC: 149 QRS: 56 QRSD: 87 T: 66 QT: 446 QTc: 433 Interpretive Statements SINUS BRADYCARDIA SEPTAL MYOCARDIAL INFARCTION , OF INDETERMINATE AGE [40+ ms Q WAVE IN V1/V2] Compared to ECG 11/07/2021 17:31:44 No significant changes Electronically Signed On 09-25-2022 22:45:40 COMBUSTION ANALYST by Hiram Dickinson M.D. [id number] f
--- NOTE | 2022-09-25 21:13 | ECG_ITS ---
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 Measurements Intervals [place] Rate: 58 P: 60 IN: 145 QRS: 72 QRSD: 89 T: 71 QT: 427 QTc: 422 Interpretive Statements SINUS BRADYCARDIA SEPTAL MYOCARDIAL INFARCTION , OF INDETERMINATE AGE [40+ ms Q WAVE IN V1/V2] Compared to ECG 09/25/2022 20:46:12 No significant changes Electronically Signed On 09-25-2022 22:46:57 [facility] by Hiram Dickinson M.D. [id number]
[2022-09-25 21:25] LABS: Troponin 5 2HR 12.82 ng/L (0-15)
[2022-09-25] MEDS: levoFLOXacin 750 mg Tablet PO (21:27)
[2022-09-25 21:32] LABS: Troponin 5 2HR Delta 5.82 ABS# (0-10)
--- NOTE | 2022-09-25 21:36 | W.ED.GENADLT ---
HPI - General Adult General: Chief complaint: Abdominal Pain Stated complaint: abd pain/bloating/sob Time Seen by Provider: 09/25/22 19:00 Source: patient Mode of arrival: ambulatory Limitations: no limitations History of Present Illness: Chart for EKG documentation only Review of Systems General: Reports: Other (Chart for EKG documentation only) [facility] ED PFSH: Medical History Acute diverticulitis Asthma Claudication of lower extremity with history of revascularization COPD (chronic obstructive pulmonary disease) Dyslipidemia Hematochezia History of glottic cancer History of radiation therapy History of skin cancer HTN (hypertension) Peripheral Vascular Disease Varicose veins of anus or rectum Surgical History History of colonoscopy 3 to 4years History of skin surgery S/P appendectomy S/P cholecystectomy S/P knee surgery Left Social History Smoking and tobacco status: former smoker History of recent travel: No Physical Exam Narrative: EXAM NARRATIVE: Chart for EKG documentation only Course Vital Signs: Vital signs: Vital Signs Temperature 98.0 F 09/25/22 16:41 Pulse Rate 62 09/25/22 20:19 Respiratory Rate 24 H 09/25/22 16:41 Blood Pressure 170/87 09/25/22 20:19 Pulse Oximetry 100 09/25/22 20:19 Oxygen Delivery Me thod 09/25/22 20:19 MDM - General Adult Medical Decision Making Chart for EKG documentation only Lab Data 09/25/22 18:58 09/25/22 18:58 Radiology Impressions Abdomen X-Ray 09/25/22 19:11 IMPRESSION: 1. Probable constipation. 2. Nonspecific bone changes right hip joint as discussed above. Chest X-Ray 09/25/22 19:12 IMPRESSION: Negative chest Abdomen/Pelvis CT 09/25/22 20:05 IMPRESSION: 1. Colonic diverticulosis. No evidence of acute diverticulitis. 2. Moderate degree of retained stool involving the remainder of the large bowel likely reflecting some degree of constipation. 3. Prominent vascular calcifications both renal hilum limiting assessment for nonobstructing calculi. 4. Degenerative changes right hip joint. No evidence of AVN. 5. Additional nonemergent findings as above. COMMENTS: Consistent with the [place] [employer]'s Incidental Findings Committee white paper (J Am Cody Radiol 2018): Any incidental renal lesion less than 1 cm or classified as too small to characterize, or any incidental cystic renal lesion characterized as simple-appearing, is likely benign. No follow-up imaging is recommended for these lesions per consensus recommendations based on imaging criteria. Laboratory Results WBC 12.1 10^3/uL (4.0-10.0) H 09/25/22 18:58 RBC 5.25 10^6/uL (4.1-5.3) 09/25/22 18:58 Hgb 15.7 g/dL (11.7-16.6) 09/25/22 18:58 Hct 46.4 % (42.0-52.0) 09/25/22 18:58 MCV 88.4 fl (80-94) 09/25/22 18:58 MCH 29.9 pg (28.0-34.0) 09/25/22 18:58 MCHC 33.8 g/dL (30.0-36.0) 09/25/22 18:58 RDW 13.2 % (12.1-15.1) 09/25/22 18:58 Plt Count 280 10^3/cmm (130-400) 09/25/22 18:58 MPV 10.5 fL (7.4-10.4) H 09/25/22 18:58 Neut % (Auto) 75.4 % 09/25/22 18:58 Lymph % (Auto) 13.4 % 09/25/22 18:58 [place] % (Auto) 6.7 % 09/25/22 18:58 Eos % (Auto) 3.0 % 09/25/22 18:58 Baso % (Auto) 1.1 % 09/25/22 18:58 Neut # (Auto) 9.11 10^3/uL (1.8-7.7) H 09/25/22 18:58 Lymph # (Auto) 1.6 10^3/uL (0.8-4.8) 09/25/22 18:58 [place] # (Auto) 0.8 10^3/uL (0.2-0.9) 09/25/22 18:58 Eos # (Auto) 0.4 10^3/uL (0.0-0.8) 09/25/22 18:58 Baso # (Auto) 0.1 10^3/uL (0.0-0.1) 09/25/22 18:58 Nucleated RBC % (auto) 0 % 09/25/22 18:58 Nucleated RBCs # 0.0 /100WBC 09/25/22 18:58 Specimen Type Arterial 09/25/22 19:22 Sample Site Radial, left 09/25/22 19:22 ABG pH 7.58 (7.35-7.45) H* 09/25/22 19:22 ABG pCO2 21.6 mmHg (35-45) L 09/25/22 19:22 ABG pO2 112.0 mmHg (80.0-100.0) H 09/25/22 19:22 ABG HCO3 20.0 mmol/L (22-26) L 09/25/22 19:22 ABG O2 Saturation 97.8 09/25/22 19:22 ABG Base Excess -1.9 mmol/L (-2.0-2.0) 09/25/22 19:22 Shamar Test Pos 09/25/22 19:22 A-a O2 Gradient 0.8 mmHg (5-10) L 09/25/22 19:22 Hematocrit 16.7 % (42-52) L 09/25/22 19:22 Hgb O2 Saturation > 100.0 % (95-100) H 09/25/22 19:22 Carboxyhemoglobin < 0.0 %THgb (0.4-20.1) L 09/25/22 19:22 Methemoglobin < 0.0 % (0.4-1.5) L 09/25/22 19:22 Total Hemoglobin 5.5 g/dL (14-18) L 09/25/22 19:22 Sodium 143.0 mmol/L (131-143) 09/25/22 19:22 Potassium 3.6 mmol/L (3.5-5.0) 09/25/22 19:22 Glucose 93.0 mg/dL (70-115) 09/25/22 19:22 Ionized Calcium 1.2 mmol/L (1.1-1.4) 09/25/22 19:22 O2 Delivery Device None 09/25/22 19:22 FiO2 21.0 % 09/25/22 19:22 Supply Aide ID [id number] 09/25/22 19:22 Sodium 147 mmol/L (136-145) H 09/25/22 18:58 Potassium 4.2 mmol/L (3.5-5.1) 09/25/22 18:58 Chloride 108 mmol/L (98-107) H 09/25/22 18:58 Carbon Dioxide 24 mmol/L (22-29) 09/25/22 18:58 Anion Gap 19.2 (5-19) H 09/25/22 18:58 BUN 7 mg/dL (8-23) L 09/25/22 18:58 Creatinine 1.0 mg/dL (0.7-1.2) 09/25/22 18:58 GFR Calculation 75.0 mL/min (90-130) L 09/25/22 18:58 Glucose 90 mg/dL (65-115) 09/25/22 18:58 Calculated Osmolality 302 mOsm/kg (285-295) H 09/25/22 18:58 Lactic Acid 1.8 mmol/L (0.5-2.2) 09/25/22 18:58 Calcium 10.0 mg/dL (8.5-10.5) 09/25/22 18:58 Total Bilirubin 1.2 mg/dL (0.15-1.2) 09/25/22 18:58 AST 18 U/L (0-40) 09/25/22 18:58 ALT 11 U/L (0-41) 09/25/22 18:58 Alkaline Phosphatase 163 U/L (40-130) H 09/25/22 18:58 Troponin T Baseline 7 ng/L (0-15) 09/25/22 18:58 Troponin T 120 Minute 12.82 ng/L (0-15) 09/25/22 20:46 Delta Troponin T 5.82 ABS# (0-10) 09/25/22 20:46 NT-Pro-B Natriuret Pep 215 pg/mL (0-125) H 09/25/22 18:58 Total Protein 6.7 g/dL (6.6-8.7) 09/25/22 18:58 Albumin 4.9 g/dL (3.5-5.2) 09/25/22 18:58 Globulin 1.8 g/dL (1.3-4.6) 09/25/22 18:58 Lipase 45 U/L (13-60) 09/25/22 18:58 Urine Color Light yellow (Yellow) 09/25/22 19:25 Urine Appearance Clear (CLEAR) 09/25/22 19:25 Urine pH 8 (5-7) H 09/25/22 19:25 Ur Specific [place] 1.010 (1.005-1.030) 09/25/22 19:25 Urine Protein Neg (Negative) 09/25/22 19:25 Urine Glucose (UA) Norm (Normal) 09/25/22 19:25 Urine Ketones 1+ (Negative) H 09/25/22 19:25 Urine Blood Neg (Negative) 09/25/22 19:25 Urine Nitrate Negative (Negative) 09/25/22 19:25 Urine Bilirubin Neg (Negative) 09/25/22 19:25 Urine Urobilinogen Neg mg/dL (Negative) 09/25/22 19:25 Ur Leukocyte Esterase Negative (Negative) 09/25/22 19:25 Urine RBC None /hpf (0-2) 09/25/22 19:25 Urine WBC None /hpf (0-5) 09/25/22 19:25 Ur Squamous Epith Cells Rare /hpf (0-5) 09/25/22 19:25 Amorphous Sediment Not Reportable 09/25/22 19:25 Urine Bacteria None /hpf (NONE) 09/25/22 19:25 Influenza Type A Ag negative (Negative) 09/25/22 19:20 Influenza Type B Ag negative (Negative) 09/25/22 19:20 SARS-CoV-2 Ag (Rapid) negative (Negative) 09/25/22 19:20 EKG Data EKG 2: I personally reviewed and interpreted this EKG as follows: EKG interpretation date: 09/25/22 EKG interpretation time: 21:37 Prior EKG tracings: available for review (No change in EKG) Interpretation: EKG shows sinus bradycardia with heart rate of 58. Normal axis. Normal ST segment. Normal QRS, normal NV interval, normal QT interval. Normal axis. Computer generated interpretation: Abdomen X-Ray 09/25/22 19:11 IMPRESSION: 1. Probable constipation. 2. Nonspecific bone changes right hip joint as discussed above. Chest X-Ray 09/25/22 19:12 IMPRESSION: Negative chest Abdomen/Pelvis CT 09/25/22 20:05 IMPRESSION: 1. Colonic diverticulosis. No evidence of acute diverticulitis. 2. Moderate degree of retained stool involving the remainder of the large bowel likely reflecting some degree of constipation. 3. Prominent vascular calcifications both renal hilum limiting assessment for nonobstructing calculi. 4. Degenerative changes right hip joint. No evidence of AVN. 5. Additional nonemergent findings as above. COMMENTS: Consistent with the [place] [employer]'s Incidental Findings Committee white paper (J Am Cody Radiol 2018): Any incidental renal lesion less than 1 cm or classified as too small to characterize, or any incidental cystic renal lesion characterized as simple-appearing, is likely benign. No follow-up imaging is recommended for these lesions per consensus recommendations based on imaging criteria. Discharge Plan Discharge Patient Disposition: Home Clinical Impression: Acute hyperventilation, Abdominal pain, acute, epigastric, Diverticulosis of colon, Acute constipation Condition: Stable Prescriptions: New levofloxacin 750 mg tablet 750 mg PO DAILY 4 Days Qty: 4 0RF Rx Instructions: For possible diverticulitis Senokot Extra Strength 17.2 mg tablet 17.2 mg PO BID PRN (Reason: constipation) Qty: 14 1RF magnesium citrate Solution 296 ml PO DAILY PRN (Reason: constipation) Qty: 296 2RF No Action levothyroxine 50 mcg capsule 50 mcg PO DAILY aspirin [Adult Low Dose Aspirin] 81 mg tablet,delayed release (DR/EC) 81 mg PO DAILY atenolol 25 mg tablet 25 mg PO DAILY fluticasone propionate [Flonase Allergy Relief] 50 mcg/actuation spray,suspension 1 spray INTRANASAL DAILY PRN (Reason: Allergy Symptoms) albuterol sulfate [ProAir HFA] 90 mcg/actuation HFA aerosol inhaler 2 puff INHALATION Q6H PRN (Reason: Shortness Of Breath) atorvastatin 20 mg tablet See Rx Instructions .ROUTE .COMPLEX Qty: 90 0RF Dose Instruction: Take 1 tablet by mouth once daily Rx Instructions: Take 1 tablet by mouth once daily amlodipine 5 mg tablet 5 mg PO DAILY Qty: 30 0RF isosorbide mononitrate 30 mg tablet extended release 24 hr 30 mg PO DAILY Qty: 90 3RF clopidogrel 75 mg tablet 75 mg PO DAILY Qty: 90 3RF Hold Instructions: Resume on 03/31/22. Discharge Orders: Discharge ED (Routine); Ordered 09/25/22 Ordered By: Dirk Lopez Referrals: Mary Ann Edwards NETWORK DEVELOPER [Primary Care Provider] - 1-3 days (As needed.) Discharge Diet: Advance as tolerated Discharge Activity: Increase activity as tolerated Patient Instructions: Diverticulitis (ED), Constipation (ED), Diverticulosis (ED), Diverticulitis Diet (ED), Abdominal Pain (ED) Activity Restrictions/Additional Instructions: Your CT scan of the abdomen shows diverticulosis without diverticulitis. You do have moderate constipation. However, your white blood cell count is slightly elevated which may suggest very early diverticulitis. Therefore, take Levaquin 7 or 50 mg tablet once daily for 5 days to help prevent diverticulitis. Return if symptoms worsen. May take [id number] stool softener, Senokot, and/or magnesium citrate to help with constipation. Follow-up with family doctor later this week. Coding Level of Care Code ED [employer] for Manjinder Sanford
[2022-09-25 21:43] VITALS: BP 170/99; PULSE 59; RESP 22; O2SAT 98
== END 2022-09-25 21:44 | disposition home or self-care (01) ==
PROVIDERS: Emergency Provider Family Medicine; PCP Nurse Practitioner
DX: K57.30 Diverticulosis of large intestine without perforation or abscess without bleeding (principal); K59.00 Constipation, unspecified; R06.4 Hyperventilation; R10.13 Epigastric pain; Z79.82 Long term (current) use of aspirin; Z79.02 Long term (current) use of antithrombotics/antiplatelets; Z20.822 Contact with and (suspected) exposure to COVID-19; J44.9 Chronic obstructive pulmonary disease, unspecified; E78.5 Hyperlipidemia, unspecified; I10 Essential (primary) hypertension; Z85.21 Personal history of malignant neoplasm of larynx; Z85.828 Personal history of other malignant neoplasm of skin; Z92.3 Personal history of irradiation
CPT/HCPCS: 36415; 36600; 71045; 74018; 74177; 80051; 80053; 81001; 82330; 82805; 83605; 83690; 83880; 84484; 85025; 87040; 87426; 87804; 93005; 99285; Q9967

== ENCOUNTER 2022-11-09 11:23 | Outpatient (CLI) | payer MEDICARE, SELFPAY ==
--- NOTE | 2022-11-09 11:47 | XR_ITS ---
WS: [id number] Exam: XR chest 2V* [id number] Date/Time of Exam: 11/09/2022 11:52 AM Reason For Exam: Cronic Priutis And Cough Comparison 09/25/2022. The lungs are hyperinflated and clear. Normal cardiomediastinal silhouette. No pleural effusions. Sev eral scattered calcified granulomas. XR/XR chest 2V* [id number] IMPRESSION: 1. Pulmonary hyperinflation which might indicate COPD. No acute process.
[2022-11-09 12:20] LABS: Basophils # 0.1 10^3/uL (0.0-0.1); Basophils % 0.6 %; Eosinophils # 0.4 10^3/uL (0.0-0.8); Eosinophils % 3.9 %; Hematocrit 44.7 % (42.0-52.0); Lymphocytes % 9.9 %; Mean Corpuscular HGB Conc 33.6 g/dL (30.0-36.0); Mean Corpuscular Hemoglobin 29.9 pg (28.0-34.0); Mean Corpuscular Volume 89.2 fl (80-94); Mean Platelet Volume 10.1 fL (7.4-10.4); Monocytes # 0.6 10^3/uL (0.2-0.9); Monocytes % 6.6 %; Neutrophils % 78.6 %; Nucleated Red Blood Cells % 0 %; Platelet Count 269 10^3/cmm (130-400); Red Blood Count 5.01 10^6/uL (4.1-5.3); Red Cell Distribution Width 13.4 % (12.1-15.1); White Blood Count 9.6 10^3/uL (4.0-10.0)
[2022-11-09 12:30] LABS: Erythrocyte Sedimentation Rate 2 mm/hr (0-10)
[2022-11-09 12:54] LABS: Alanine Aminotransferase 10 U/L (0-41); Albumin Level 4.5 g/dL (3.5-5.2); Alkaline Phosphatase 155 U/L (40-130); Anion Gap 16.8 (5-19); Aspartate Amino Transferase 15 U/L (0-40); Blood Urea Nitrogen 8 mg/dL (8-23); Calcium 8.7 mg/dL (8.5-10.5); Carbon Dioxide 25 mmol/L (22-29); Chloride 106 mmol/L (98-107); Ferritin 102 ng/mL (30-400); Globulin 2.4 g/dL (1.3-4.6); Glomerular Filtration Rate 96.7 mL/min (90-130); Glucose 100 mg/dL (65-115); Iron 81 ug/dL (59-158); Osmolality Calculated 296 mOsm/kg (285-295); Potassium 3.8 mmol/L (3.5-5.1); Sodium 144 mmol/L (136-145); Total Bilirubin 0.8 mg/dL (0.15-1.2); Total Iron Binding Capacity 279 mcg/dl; Total Protein 6.9 g/dL (6.6-8.7); Unsaturated Iron Binding 198 ug/dL (112-347)
[2022-11-12 16:41] LABS: Alternaria Alternata (M6) Ige <0.10 kU/L; Alternaria Class 0; Bermuda Class 0; Bermuda Grass (G2) Ige <0.10 kU/L; Cat Dander (E1) Ige <0.10 kU/L; Cat Dander Class 0; Common Ragweed (Short) (W1) Ig <0.10 kU/L; D. Farinae Class 0; Dermatophagoides Class 0; Dermatophagoides Farinae (D2) <0.10 kU/L; Dermatophagoides Pteronyssinus <0.10 kU/L; Dog Dander (E5) Ige <0.10 kU/L; Dog Dander Class 0; Elm (T8) Ige <0.10 kU/L; Elm Class 0; English Plantain (W9) Ige <0.10 kU/L; English Plantain Class 0; House Dust (Greer) (H1) Ige <0.10 kU/L; House Dust (Hollister- Stier) <0.10 kU/L; House Dust Class 0; Immunoglobulin E 311 kU/L (<OR=114); Johnson Grass (G10) Ige <0.10 kU/L; Johnson Grass Cl 0; June Grass Class 0; June Grass(Kentucky Blue) (G8) <0.10 kU/L; Lamb'S Quarters (Goose Foot) <0.10 kU/L; Lamb'S Quarters Class 0; Maple (Box Elder) (T1) Ige <0.10 kU/L; Maple Class 0; Meadow Fescue (G4) Ige <0.10 kU/L; Meadow Fescue Class 0; Mucor Racemosus Class 0; Oak (T7) Ige <0.10 kU/L; Oak Class 0; Orchard Grass (Cocksfoot) (G3) <0.10 kU/L; Penicillium Class 0; Penicillium Notatum (M1) Ige <0.10 kU/L; Perennial Rye Grass (G5) Ige <0.10 kU/L; Perennial Rye Grass Class 0; Ragweeed Class 0; Rough Marsh Elder (W16) Ige <0.10 kU/L; Rough Marsh Elder Class 0; Sweet Vernal Class 0; Sweet Vernal Grass (G1) Ige <0.10 kU/L; Timothy Grass (G6) Ige <0.10 kU/L; Timothy Grass Class 0
[2022-11-16 20:39] LABS: Aspergillus Fumigatus, Igg Ab, 6.6 mg/L (<=102)
== END 2022-11-09 11:24 | disposition home or self-care (01) ==
PROVIDERS: PCP Nurse Practitioner; Visit Provider Nurse Practitioner Family
DX: L29.9 Pruritus, unspecified (principal); R05.9 Cough, unspecified
CPT/HCPCS: 36415; 71046; 80053; 82728; 82785; 83540; 83550; 85025; 85651; 86003

== ENCOUNTER 2022-12-18 12:02 | Outpatient (CLI) | payer MEDICARE, SELFPAY ==
--- NOTE | 2022-12-18 12:20 | CTR_ITS ---
PROCEDURE INFORMATION: Exam: CTA Abdominal Aorta and Bilateral Lower Extremities (Run-off) With Contrast Exam date and time: 12/18/2022 12:32 PM Age: 67 years old Clinical indication: Other: Claudication of lower extremity; Prior surgery; Surgery date: 6+ months; Surgery type: Gb, left knee, appy, 7-stents in legs; Patient HX: Pain and pressure in RT groin area where they put the stents x 2 wks; Additional info: Claudication of lower extremity with history of re TECHNIQUE: Imaging protocol: Computed tomographic angiography of the of the abdominal aorta, pelvis and bilateral lower extremities with contrast. 3D rendering (Not supervised by radiologist): MIP and/or 3D reconstructed images were created by the technologist. Radiation optimization: All CT scans at this facility use at least one of these dose optimization techniques: automated exposure control; mA and/or kV adjustment per patient size (includes targeted exams where dose is matched to clinical indication); or iterative reconstruction. Contrast material: OMNI 350; Contrast volume: 95 ml; Contrast route: INTRAVENOUS (IV); REPORTING DATA: Count of CT and Cardiac NM exams in prior 12 months: This patient has received [address] and 0 known cardiac nuclear medicine studies in the 12 months prior to the current study. COMPARISON: 1. CT angio abd aorta runof [id number] 02/25/2020 9:[address] abdomen pelvis w con* [id number] 09/25/2022 8:28 PM RADIATION DOSE METRICS: Total DLP (mGy-cm): 678.01 FINDINGS: Aorta: No aortic aneurysm. No aortic dissection. Celiac trunk and mesenteric arteries: No occlusion or significant stenosis. Renal arteries: There is a single renal artery on each side. There is some atherosclerotic calcification of the renal arteries. There is no significant stenosis of the left renal artery. There is moderate stenosis with at least 50% narrowing of the proximal right renal artery. Right iliac arteries: There is a long stent in the right common iliac artery beginning at the aortic bifurcation and extending into the distal right iliac artery. This stent is patent. There is extensive atherosclerotic calcification of the right internal iliac artery which is proximally occluded but distal branches opacify via collaterals. Right femoral/popliteal arteries: There is atherosclerotic calcification and plaque in the right common femoral artery with mild to moderate stenosis in multiple locations. 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 Origin of the right superficial femoral artery is highly stenotic. There is extensive atherosclerotic calcification seen along the length of the right superficial femoral artery. The appearance is suggestive possibly of chronic dissection with thrombosed false lumen. The absence of noncontrast images of this region makes it difficult to exclude any persisting dissection. There are multiple areas of severe stenosis along the length of the right superficial femoral artery.The right superficial femoral artery is patent to the popliteal artery. Right popliteal artery is patent. Right infrapopliteal arteries: There is two-vessel runoff below the right knee of by the posterior tibial artery and peroneal artery. The right anterior tibial artery is proximally occluded. The dorsalis pedis artery is supplied via collaterals. Left iliac arteries: There is extensive atherosclerotic calcification of the left internal iliac artery with multiple areas of severe stenosis. Left femoral/popliteal arteries: There is a long stent in the left common iliac artery beginning at the aortic bifurcation and extending through the origin of the left common femoral artery. Stent is patent. There is moderate atherosclerotic disease of the left common femoral artery not changed from previous.. There is atherosclerotic calcification and multiple areas of mild to moderate stenosis along the length of the left superficial femoral artery with severe distal stenosis at the level of the adductor canal but no occlusion. Left popliteal artery is patent. Left infrapopliteal arteries: There is three-vessel runoff below the left knee with patent anterior tibial artery and posterior tibial artery supplying the left foot. The dorsalis pedis artery on the left is patent. Left foot is supplied via the posterior tibial artery and the plantar arcade. The peroneal artery extends to the level of the distal tibiofibular articulation. Lungs: Lung bases are clear. Liver: 17 x 28 mm sized benign-appearing simple cyst inferior right lobe of the liver slightly larger than on 02/25/2020. Other tiny benign-appearing hypodensities in the liver most likely small cyst too small to definitively characterize by CT scanning in not significantly changed. There is a diffuse decrease in hepatic parenchymal density, consistent with mild fatty infiltration. Gallbladder and bile ducts: There has been a cholecystectomy. Pancreas: There is some tiny calcifications within the pancreas suggestive of chronic pancreatitis not significantly changed compared with 09/25/2022. Spleen: The spleen is normal. Adrenal glands: The adrenal glands are normal. Kidneys and ureters: Small renal cortical cysts in both kidneys not significantly changed. Too small to definitively characterize by CT scanning. Calcifications associated with both kidneys appear to be mostly vascular. These are unchanged since 2020. There is no evidence of hydronephrosis. There is no stone along the course of either ureter. Stomach and bowel: Moderate diverticulosis is present in the distal colon. There is no evidence of colitis/diverticulitis. Appendix: Not identified Urinary bladder: There is mild thickening of the urinary bladder wall unchanged from previous, likely due to muscular hypertrophy. Reproductive: The prostate demonstrates moderate nonspecific enlargement. The seminal vesicles are normal. Intraperitoneal space: Unremarkable. No free air. No significant fluid collection. Lymph nodes: No lymphadenopathy. Bones/joints: No acute fracture. No dislocation. Soft tissues: Unremarkable. CT/CT angio abd aorta runof [id number] IMPRESSION: Extensive atherosclerotic vascular disease as described.
[2022-12-18] MEDS: iohexol 350 mg/mL 500 mL Btl (per mL) IV (12:43)
== END 2022-12-18 12:03 | disposition home or self-care (01) ==
LOC: RAD 12:06
PROVIDERS: PCP Nurse Practitioner; Visit Provider Nurse Practitioner Family
DX: I73.9 Peripheral vascular disease, unspecified (principal)
CPT/HCPCS: 75635; Q9967

== ENCOUNTER → 2022-12-26 10:32 | Outpatient (BNVA) | payer MEDICARE, SELFPAY | PROVIDERS: PCP Nurse Practitioner; Visit Provider Internal Medicine Cardiovascular Disease | DX: I73.9 Peripheral vascular disease, unspecified (principal); J44.9 Chronic obstructive pulmonary disease, unspecified; I10 Essential (primary) hypertension; Z87.891 Personal history of nicotine dependence | CPT/HCPCS: 99214 ==

== ENCOUNTER → 2022-12-31 14:08 | Outpatient (BNVA) | payer MEDICARE, SELFPAY | PROVIDERS: PCP Nurse Practitioner; Visit Provider Podiatrist Foot & Ankle Surgery | DX: M77.41 Metatarsalgia, right foot (principal); M77.42 Metatarsalgia, left foot; M76.829 Posterior tibial tendinitis, unspecified leg; M21.6X1 Other acquired deformities of right foot; M21.6X2 Other acquired deformities of left foot | CPT/HCPCS: 73630; 99203 ==

== ENCOUNTER → 2023-01-01 14:48 | Outpatient (BNVA) | payer MEDICARE, SELFPAY | PROVIDERS: PCP Nurse Practitioner; Visit Provider Nurse Practitioner Family | DX: L57.0 Actinic keratosis (principal); Z85.828 Personal history of other malignant neoplasm of skin; L57.8 Other skin changes due to chronic exposure to nonionizing radiation; L85.3 Xerosis cutis; L81.4 Other melanin hyperpigmentation; D22.5 Melanocytic nevi of trunk; Z71.89 Other specified counseling; D69.2 Other nonthrombocytopenic purpura; Z87.891 Personal history of nicotine dependence | CPT/HCPCS: 17000; 17003; 99214 ==

== ENCOUNTER 2023-01-08 06:32 | Outpatient (CLI) | payer MEDICARE, SELFPAY ==
[2023-01-08 06:44] VITALS: BMI 28.1
--- NOTE | 2023-01-08 07:55 | ECG_ITS ---
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 Interpretive Statements NAME OF STUDY: LEXISCAN SESTAMIBI STRESS TEST INDICATION: Chest Pain; Shortness of Breath PROCEDURE: At the baseline, the blood pressure was 115/66 mmHg with a heart rate of 46 beats/min. The electrocardiogram showed sinus bradycardia with possible old anteroseptal infarct. The Lexiscan was infused over a period of 20 seconds. A total of 0.4 milligrams of Lexiscan was infused. The stress phase was continued for a total of 5 minutes. Heart rate at the end of the stress phase was 61 bpm with a blood pressure of 150 over 73 mmHg. The EKG at the peak infusion revealed no significant ST-T wave changes. Sestamibi was injected 20 seconds after the Lexiscan infusion. Blood pressure at the end of the recovery phase was 141/72 mmHg with a heart rate of 59 beats per minute. CONCLUSION: 1. No significant EKG changes with the LexiScan infusion. 2. No LexiScan induced chest pain or cardiac arrhythmia. 3. Normal blood pressure and heart rate response. 4. Sestamibi/sestamibi perfusion scan pending; see separate report. Electronically Signed On 01-11-2023 12:59:56 CDT by Yessenia Wallis M.D. [id number]
--- NOTE | 2023-01-08 07:55 | NMCV_ITS ---
NM malorie perf SPECT r/s* [id number] Tristian Hernandez Age: 67 Gender: M : 1955 Exam Date: 01/08/2023 07:55 Ordering Phys: Yessenia Wallis MD ([email or web address]) Technologist: YULIYA Mike Exam Location: [facility] Indications: CHEST PAIN, SHORTNESS OF BREATH STRESS TEST [facility] IMAGE PROTOCOL Rest/Stress 1 Radiopharmaceutical Dose (mCi) Administration Site Administered by Rest: Tc-99m 10.6 IV YULIYA Pathak Sestamibi Stress:Tc-99m 33.0 IV YULIYA Pathak Sestamibi Rest: 08-Jan-2023 60 Discovery 630 Stress: 08-Jan-2023 30 Discovery 630 Images obtained in supine and prone position. Images obtained in supine and prone position. SPECT RESULTS Technical Quality: Excellent Raw Data Analysis: Normal Image Corrections: No attenuation or motion correction applied Summed Stress Score: 8 Summed Rest Score: 6 Summed Difference Score: 4 PERFUSION FINDINGS Small sized perfusion abnormality of moderate severity of mid to apical inferior wall on rest images with some reversibility in mid to apical inferior and apical lateral brito on supine stress images. There is improved tracer uptake in prone stress images. FUNCTIONAL RESULTS (calculated via Gated SPECT) Stress Image LV EF (%): 70 Stress EDV (mL):113 TID: 1 Stress ESV (mL):34 FUNCTIONAL FINDINGS: The left ventricle is normal in size. Transient Ischemia Dilatation of 1. The left ventricular ejection fraction is normal with a value of 70%. There is normal left ventricular wall thickening. IMPRESSIONS 1. Small sized mildly reversible perfusion abnormality of moderate severity of mid to apical inferior and apical lateral brito. 2. This may represent old myocardial infarction in RCA territory with mild jeanette-infarct ischemia. However, with homogenous tracer uptake in prone stress images attenuation artifact cannot be ruled out. 3. Overall left ventricular systolic function is normal without regional wall motion abnormalities, LVEF=70%. 4. EKG portion of the study will be reported separately. Yessenia Wallis MD (Electronically Signed) Final Date: 15 January 2023 17:51 S
[2023-01-08] MEDS: regadenoson 0.4 Mg/5 ml Syringe IVP (08:29)
[2023-01-08 08:46] VITALS: BP 144/84; PULSE 64
== END 2023-01-08 06:33 | disposition home or self-care (01) ==
PROVIDERS: PCP Nurse Practitioner; Visit Provider Internal Medicine Cardiovascular Disease
DX: R07.9 Chest pain, unspecified (principal); R06.02 Shortness of breath
CPT/HCPCS: 36415; 78452; 93017; 96374; A9500; J2785

== ENCOUNTER 2023-01-16 14:36 | Outpatient (CLI) | payer MEDICARE, SELFPAY ==
[2023-01-16 15:13] LABS: Basophils # 0.1 10^3/uL (0.0-0.1); Basophils % 0.8 %; Eosinophils # 0.1 10^3/uL (0.0-0.8); Eosinophils % 0.8 %; Hematocrit 40.6 % (42.0-52.0); Hemoglobin 14.1 g/dL (11.7-16.6); Lymphocytes # 0.9 10^3/uL (0.8-4.8); Lymphocytes % 7.2 %; Mean Corpuscular HGB Conc 34.7 g/dL (30.0-36.0); Mean Corpuscular Hemoglobin 30.3 pg (28.0-34.0); Mean Corpuscular Volume 87.3 fl (80-94); Monocytes # 0.9 10^3/uL (0.2-0.9); Monocytes % 6.9 %; Neutrophils % 83.8 %; Nucleated Red Blood Cells % 0 %; Platelet Count 273 10^3/cmm (130-400); Red Blood Count 4.65 10^6/uL (4.1-5.3)
[2023-01-16 15:34] LABS: Anion Gap 14.1 (5-19); Blood Urea Nitrogen 10 mg/dL (8-23); Calcium 8.7 mg/dL (8.5-10.5); Carbon Dioxide 23 mmol/L (22-29); Chloride 106 mmol/L (98-107); Glomerular Filtration Rate 84.4 mL/min (90-130); Glucose 153 mg/dL (65-115); Osmolality Calculated 292 mOsm/kg (285-295); Potassium 3.1 mmol/L (3.5-5.1); Sodium 140 mmol/L (136-145)
[2023-01-16 16:01] LABS: INR 0.96 (0.83-1.21); Prothrombin Time (Patient) 13.1 Seconds (12.0-15.1)
== END 2023-01-16 14:37 | disposition home or self-care (01) ==
PROVIDERS: PCP Nurse Practitioner; Visit Provider Internal Medicine Cardiovascular Disease
DX: I73.9 Peripheral vascular disease, unspecified (principal)
CPT/HCPCS: 36415; 80048; 85025; 85610

== ENCOUNTER 2023-01-17 09:49 | Observation (INO) | payer MEDICARE, SELFPAY ==
[2023-01-17] VITALS (25 sets, daily range): BP systolic 123–163; BP diastolic 59–84; PULSE 40–51; RESP 11–21; TEMP 36.3–37; O2SAT 92–97; BMI 28.3
--- NOTE | 2023-01-17 07:30 | XACV_ITS ---
Ht: 178 cm Wt: 89 kg BSA: 2.12 m2 Any Known Allergies: Penicillins Gender: Male : 1955 Exam Type: Invasive Peripheral Vascular Procedure(s): Procedure Description: Peripheral Cath Diagnostic Procedure Procedure Description: Abdominal aortic angiography Procedure Description: Lower extremities' angiography Exam Priority: Routine Lower Extremity Diagnostic Findings INDICATION: Severe atypical claudication of right lower extremity mostly in right groin. CTA demonstrated extensive disease. Patient referred for peripheral angiogram with possible intervention. Left lower extremity findings: Left common iliac artery has patent prior stent. The left external iliac artery has patent prior stent. In distal external iliac artery, there is overlap of 2 stents where stents seem deformed. He had difficulty in advancing the wire and sheath through it. The sheath did not go forward however flow appears to be brisk through it. Left common femoral artery is patent. Left SFA is patent and has a diffuse luminal irregularities. Left profunda is patent. Below the knee patient has diffuse disease but patent vessels. Right lower extremity findings: Right common iliac artery has patent stent. Right external iliac artery has patent stent. Right common femoral artery is patent. Right SFA has ostial 50% stenosis. Right profunda artery is patent. Below the knee patient has diffuse disease and two-vessel runoff.. Conclusions Patient has patent prior iliac stents. In left external iliac artery stent seem to be deformed however flow is brisk. He is not having any symptoms in left lower extremity. We will medically manage it. Right ostial SFA has about 50% calcified stenosis. However symptoms are localized to right groin. No claudication symptoms in the calfs. This is atypical for this stenosis to cause localized groin pain. We will medically manage it at this time. Recommendations Aggressive medical therapy. Symptoms do not seem to be related to peripheral artery disease. Outpatient cardiology follow-up in 2-week. Hemodynamic Data Phase:Rest AO : 123.0 / 57.0 ( 84.0 ) @ 10:03:00 AM Access Site Site: Left Femoral artery Sheath Size: 6 Fr Hemost... Method: Manual Compression Hemost... Success: Successful Site: Right Femoral artery Sheath Size: 6 Fr Hemost... Method: Mynx Hemost... Success: Successful Procedure Details Findings Procedure Consent Obtained. Admit Source: Out Patient. Pre-Procedure Time Out. Identified patient by full name and date of as verbalized by the patient/guarantor. Does the consent match the physician's order: Yes. Accurate & Complete Informed Consent: Yes. Inpatient/Outpatient History & Physical on Chart: Yes. If H&P is completed, is and addenduem needed: No; If yes, is the addendum complete: N/A. Visualize and Verify Site with Patient/Guarantor: N/A. Relevant Radiology Images available: Yes. The risks, benefits, and alternatives of sedation and/or procedure were discussed by physician. The patient agrees to continue. Procedure started. Correct patient, site and procedure confirmed by cath team. PERRLA. 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 Lungs clear x 5 lobes. IV Site on Arrival: 20 gauge in the right anticubital. IV Fluids: 0.9% NaCl at KVO. 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 Pre Procedural Pulses: bilateral radial was 2+. Pre Procedural Pulses: right posterior tibial was Doppled. Pre Procedural Pulses: right dorsalis pedis was Doppled. Pre Procedural Pulses: left brachial was 3+. Pre Procedural Pulses: left dorsalis pedis was 2+. Pre Procedural Pulses: left posterior tibial was 2+. Oxygen started at 4liters/min via nasal canula. bilateral groins was prepped with chloroprep then draped in the usual sterile fashion. Physician notified. Physician notified. Baseline sample Acquired. HR: 52 BPM. Physician arrived. Physician scrubbed in. Time out performed with cath team. Lidocaine 1% infiltrated to the left groin. Arterial access obtained with micropuncture set. Hand injection through sheath. A 5FrFr UF catheter in over wire. Glidewire inserted. Glidewire removed. Catheter out. Hand injection through sheath. Glidewire inserted. Glidewire removed. Glidewire inserted. Glidewire removed. Standard J wire inserted. Wire out. Glidewire inserted. Glidewire removed. Micropuncture wire in through sheath. Sheath removed. Microdilator in. Microdilator out. Physican holding pressure until hemostasis is obtained. Physician reviewing previous films. A Manual Compression was successful obtaining hemostatsis at the Left Femoral artery insertion site. Ultrasound being used for assist in right access. Lidocaine 1% infiltrated to the right groin. An attempt to gain access to the right femoral artery was unsuccessful. Manual pressure was held as needed to stop the bleeding. Arterial access obtained with micropuncture set. A 5FrFr UF catheter in over wire. Abdominal aortogram performed GAN in COLLIER @ 10 mL/sec for a total of 30 mL. Glidewire inserted. Glidewire removed. Sheath injected in Left common femoral artery and runoff performed. UF and wire out. Hand injection through sheath. Lidocaine 1% infiltrated to the right groin. Glidesheath removed. Wire out. A Mynx was successful obtaining hemostatsis at the Right Femoral artery insertion site. 6F glide sheath re-inserted. Mynx closure device inserted through sheath. Mynx placed without complications. No signs or symptoms of hematoma noted. Sterile dressing applied per usual sterile fashion. Lot # [id number] Exp date 05/11/23. Post Procedure: Pulses reassessed and unchanged. PERRLA. 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 No VTE prophylaxis required. Medication's Wasted: Lidocaine 1% = 1 mL. Medication's Wasted: Heparin = 4000 units. Medication's Wasted: Other = versed 1 mg. Total IV fluids: 103 mL. Post-op diagnosis: severe below the knee PAD. Complications: none. Estimated blood loss: 5mL-10mL. Responsiveness - Normal response to verbal stimuli; alert and oriented, PERRLA. Airway - Unaffected, no intervention required; spontaneous ventilation. Circulation: W/N/L, pulses unchanged. Nausea/Vomiting: No. Procedure completed. Patient transferred by bed to 1st floor. Vital chart was stopped. Procedure Medications Start: 8:07 AM Stop: 8:07 AM Medication: Versed Amount: 1 mg Route: I.V. Start: 8:07 AM Stop: 8:07 AM Medication: Fentanyl Amount: 50 mcg Route: I.V. Start: 8:14 AM Stop: 8:14 AM Medication: Versed Amount: 1 mg Route: I.V. Start: 8:17 AM Stop: 8:17 AM Medication: Versed Amount: 1 mg Route: I.V. Start: 9:05 AM Stop: 9:05 AM Medication: Fentanyl Amount: 25 mcg Route: I.V. Start: 9:22 AM Stop: 9:22 AM Medication: Fentanyl Amount: 25 mcg Route: I.V. I, the attending physician, have reviewed and verified all procedure medications. Yes, all medications given per verbal order History/Risk Factors Hypertension: Yes Dyslipidemia: Yes Peripheral Arterial Disease (PAD): Yes Obesity: No Tobacco Use: Former Prior Interventions PCI: No CABG: No Valve Surgery: No Report Signatures Finalized by Hiram Dickinson MD on 01/20/2023 04:42 PM
[2023-01-17] MEDS: diphenhydrAMINE 50 mg Capsule PO (07:45)
--- NOTE | 2023-01-17 10:15 | W.PM.OPSUD ---
Surgery/Procedure H&P Update DATE OF PROCEDURE: January 17, 2023 DATE H&P PERFORMED: 12/26/22 H&P UPDATE INFORMATION: I have reviewed H&P completed within last 30 days, I have examined patient prior to procedure and No changes to prior documentation PREOP DIAGNOSIS: Right leg severe claudication PRIMARY INDICATION FOR PROCEDURE: Right leg severe claudication PLANNED PROCEDURE: Operation Date: 01/17/23 08:30 Proposed Procedures p Peripheral Angiogram 80746,R93.89, I73.9(Not Applicable) - Hiram Dickinson M.D Possible intervention PATIENT REASSESSED PRIOR TO SEDATION, WITH NO CHANGE NOTED: Yes PHYSICAL EXAM: alert, oriented x 3, clear to auscultation bilaterally and regular rate & rhythm AIRWAY EVAL/ANESTHESIA PLAN: normal airway, ASA IV, Local Anesthesia, Risks, benefits & alternatives of sedation and/or procedure discussed and Patient agrees to continue as planned ADDITIONAL INFORMATION: Moderate sedation
[2023-01-17] MEDS: fentaNYL 50 mcg/mL INJ 2mL 25 MCG IVP (12:28)
== END 2023-01-17 15:45 | disposition home or self-care (01) ==
LOC: CSU 09:53
PROVIDERS: Admitting Provider Internal Medicine; PCP Nurse Practitioner; Visit Provider Internal Medicine
DX: R93.89 Abnormal findings on diagnostic imaging of other specified body structures (principal); I73.9 Peripheral vascular disease, unspecified; J44.9 Chronic obstructive pulmonary disease, unspecified; I10 Essential (primary) hypertension; E78.5 Hyperlipidemia, unspecified; E78.00 Pure hypercholesterolemia, unspecified; Z87.891 Personal history of nicotine dependence; Z95.5 Presence of coronary angioplasty implant and graft; Z79.82 Long term (current) use of aspirin
CPT/HCPCS: 36415; 75625; 75716; 96361; 96365; 99152; 99153; C1760; C1769; C1887; C1894; G0378; J1644; J2250; J3010; J7030; Q0163; Q9967

== ENCOUNTER → 2023-01-24 13:16 | Outpatient (BNVA) | payer MEDICARE, SELFPAY | PROVIDERS: PCP Nurse Practitioner; Visit Provider Nurse Practitioner Family | DX: I73.9 Peripheral vascular disease, unspecified (principal); Z87.891 Personal history of nicotine dependence; E78.5 Hyperlipidemia, unspecified | CPT/HCPCS: 36415; 80048; 83880; 99214 ==

== ENCOUNTER 2023-01-30 15:06 | Outpatient (CLI) | payer MEDICARE, SELFPAY | END 2023-01-30 15:07 | disposition home or self-care (01) | LOC: SPT 15:06 | PROVIDERS: PCP Nurse Practitioner; Visit Provider Podiatrist Foot & Ankle Surgery | DX: Z46.89 Encounter for fitting and adjustment of other specified devices (principal); M79.671 Pain in right foot; M79.672 Pain in left foot; M77.42 Metatarsalgia, left foot; M77.41 Metatarsalgia, right foot; M76.829 Posterior tibial tendinitis, unspecified leg; M21.6X1 Other acquired deformities of right foot; M21.6X2 Other acquired deformities of left foot | CPT/HCPCS: 97760; L3030 ==

== ENCOUNTER → 2023-02-14 08:35 | Outpatient (BNVA) | payer MEDICARE, SELFPAY | PROVIDERS: PCP Nurse Practitioner; Visit Provider Orthopaedic Surgery | DX: M54.50 Low back pain, unspecified (principal); M25.559 Pain in unspecified hip; M54.2 Cervicalgia | CPT/HCPCS: 72050; 72110; 73502; 99204 ==

== ENCOUNTER 2023-02-26 14:04 | Outpatient (CLI) | payer MEDICARE, SELFPAY ==
--- NOTE | 2023-02-26 14:11 | CTR_ITS ---
PROCEDURE INFORMATION: Exam: CT Neck With Contrast Exam date and time: 02/26/2023 2:22 PM Age: 67 years old Clinical indication: Condition or disease; Prior surgery; Surgery date: 6+ months; Patient HX: Epiglottis cancer, skin cancer, C/O stiffness and pulling sensation bilateral neck, numbness in bilateral arms to hands, shortness of breath; Additional info: Cancer of epiglottis TECHNIQUE: Imaging protocol: Computed tomography of the neck with contrast. Radiation optimization: All CT scans at this facility use at least one of these dose optimization techniques: automated exposure control; mA and/or kV adjustment per patient size (includes targeted exams where dose is matched to clinical indication); or iterative reconstruction. Contrast material: OMNI 350; Contrast volume: 75 ml; Contrast route: INTRAVENOUS (IV); REPORTING DATA: Count of CT and Cardiac NM exams in prior 12 months: This patient has received 3 known CTs and 0 known cardiac nuclear medicine studies in the 12 months prior to the current study. COMPARISON: CR XR cervical spine 4-5V [id number] 02/14/2023 9:03 AM RADIATION DOSE METRICS: Total DLP (mGy-cm): 203.55 FINDINGS: Pharynx: Unremarkable. No significant tonsillar enlargement. Larynx: Unremarkable. Epiglottis is normal. Prevertebral and retropharyngeal spaces: Unremarkable. Salivary glands: Normal. Glands are normal in size. Thyroid: Normal. No enlarged or calcified nodules. Lymph nodes: Unremarkable. No lymphadenopathy. Trachea: Visualized trachea is unremarkable. Lungs: Unremarkable as visualized. Bones/joints: Unremarkable. No acute fracture. Soft tissues: Unremarkable. No significant soft tissue swelling. CT/CT neck w con* [id number] IMPRESSION: No acute findings.
--- NOTE | 2023-02-26 14:11 | CTR_ITS ---
PROCEDURE INFORMATION: Exam: CT Chest With Contrast; Diagnostic Exam date and time: 02/26/2023 2:27 PM Age: 67 years old Clinical indication: Condition or disease; Other: Cancer of epiglottis; Prior surgery; Surgery date: 6+ months; Patient HX: Epiglottis cancer, skin cancer, C/O stiffness and pulling sensation bilateral neck, numbness in bilateral arms to hands, shortness of breath; Additional info: Cancer of epiglottis, chronic obstructive pulmonary disease TECHNIQUE: Imaging protocol: Diagnostic computed tomography of the chest with contrast. Radiation optimization: All CT scans at this facility use at least one of these dose optimization techniques: automated exposure control; mA and/or kV adjustment per patient size (includes targeted exams where dose is matched to clinical indication); or iterative reconstruction. Contrast material: OMNI 350; Contrast volume: 75 ml; Contrast route: INTRAVENOUS (IV); REPORTING DATA: Count of CT and Cardiac NM exams in prior 12 months: This patient has received 3 known CTs and 0 known cardiac nuclear medicine studies in the 12 months prior to the current study. COMPARISON: CR XR chest 2V* [id number] 11/09/2022 11:54 AM RADIATION DOSE METRICS: Total DLP (mGy-cm): 372.69 FINDINGS: Lungs: Right lower lobe calcified granuloma. No consolidation. No mass. Mild biapical pleuroparenchymal scarring. Pleural spaces: Unremarkable. No pneumothorax. No pleural effusion. Heart: Unremarkable. No cardiomegaly. No pericardial effusion. Coronary arteries: Mild coronary artery calcification. Lymph nodes: Unremarkable. No enlarged lymph nodes. Vasculature: Mild systemic atherosclerotic calcification without aortic aneurysm. Diaphragm: Small hiatal hernia. Liver: 2.7 cm long ovoid fluid density simple right hepatic cyst. Few additional subdiaphragmatic subcentimeter hepatic hypodensities too small to completely characterize. Gallbladder and bile ducts: Prior cholecystectomy with mild common duct dilatation, expected. Pancreas: Few scattered punctate pancreatic calcifications may be sequela of prior pancreatitis. Kidneys and ureters: Left renal cyst is stable, as well as other subcentimeter hypodensities which are too small to characterize. Excreted contrast in the collecting systems. Stomach and bowel: Colonic diverticulosis. Bones/joints: Unremarkable. No acute fracture. Soft tissues: Unremarkable. CT/CT chest w con* [id number] IMPRESSION: No acute thoracic findings. COMMENTS: Consistent with the [employer]'s Incidental Findings Committee white paper (J Am Cody Radiol 2018): Any incidental renal lesion less than 1 cm or classified as too small to characterize, or any incidental cystic renal lesion characterized as simple-appearing, is likely benign. No follow-up imaging is recommended for these lesions per consensus recommendations based on imaging criteria.
[2023-02-26] MEDS: iohexol 350 mg/mL 500 mL Btl (per mL) IV ×2 (14:27→14:31)
== END 2023-02-26 14:05 | disposition home or self-care (01) ==
PROVIDERS: PCP Nurse Practitioner; Visit Provider Nurse Practitioner Family
DX: C32.1 Malignant neoplasm of supraglottis (principal); C76.0 Malignant neoplasm of head, face and neck; J44.9 Chronic obstructive pulmonary disease, unspecified; R20.0 Anesthesia of skin; Z98.890 Other specified postprocedural states
CPT/HCPCS: 70491; 71260; Q9967

== ENCOUNTER → 2023-03-04 12:54 | Outpatient (BNVA) | payer MEDICARE, SELFPAY | PROVIDERS: PCP Nurse Practitioner; Visit Provider Nurse Practitioner Family | DX: L29.8 Other pruritus (principal); L21.8 Other seborrheic dermatitis; L57.8 Other skin changes due to chronic exposure to nonionizing radiation; L57.0 Actinic keratosis; L81.4 Other melanin hyperpigmentation; D22.5 Melanocytic nevi of trunk; L85.3 Xerosis cutis; Z85.828 Personal history of other malignant neoplasm of skin; Z87.891 Personal history of nicotine dependence | CPT/HCPCS: 17004; 99214 ==

== ENCOUNTER 2023-03-05 12:16 | Outpatient (CLI) | payer MEDICARE, SELFPAY ==
--- NOTE | 2023-03-05 12:45 | MR_ITS ---
WS: [id number] MRI CERVICAL SPINE NONCONTRAST HISTORY: pain COMPARISON: None available. Technique: Multiplanar, multisequence noncontrast imaging of the cervical spine. Very slight increase in cervical lordosis. No marrow edema or acute fracture. Increased T2 signal within the cervical cord at the C3-4 level. No cord atrophy or syrinx. Signal abn ormality extends over length of 7 mm. Craniocervical junction, C1 and C2 relationship, odontoid process and soft tissues are normal. C2-C3: Mild annular disc bulging with a central disc protrusion. Mild osteophytic ridging. Moderate b ilateral foraminal stenosis. Mild disc contact on the ventral cervical cord. C3-C4: Diffuse annular disc bulging with a moderate size central protrusion. Osteophytic ridging and facet joint arthritis. Severe central and foraminal stenosis. C4-C5: Osteophytic ridging and annular disc bulge with a central protrusion. Moderate bilateral facet arthritis. Mild central and bilateral foraminal stenosis. C5-C6: Diffuse annular disc bulging with moderate disc protrusion. Moderate bilateral facet arthritis . Moderate central and bilateral foraminal stenosis. C6-C7: Facet joint arthritis and mild foraminal stenosis. C7-T1: No stenosis. No paravertebral abnormality identified. MR/MR cervical spin wo con* [id number] IMPRESSION: 1. Severe central and bilateral foraminal stenosis at C3-4 due to combination of disc protrusion, osteophytes and facet arthritis. 2. 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 3. Mild central and bilateral foraminal stenosis at C4-5. 4. Moderate central and bilateral foraminal stenosis at C5-6. 5. Mild central and moderate foraminal stenosis at C2-3.
--- NOTE | 2023-03-05 13:30 | MR_ITS ---
WS: [id number] MRI LUMBAR SPINE NONCONTRAST HISTORY: pain COMPARISON: 11/01/2020 TECHNIQUE: Sagittal and axial multisequence imaging is submitted. Mild/moderate cervical stenosis at C3-4 due to disc and osteophyte disease. Additional areas of disc bulging in the cervical spine. No high-grade stenosis. Increase in thoracic kyphosis. 2 mm anterolisthesis of L4. Vertebral bodies and disc spaces are well-maintained with only mild disc desiccation at L5-S1. No marrow edema or fracture. Disc spaces and vertebral body heights are well-preserved. Conus terminates normally at L1-2 disc level. L1-L2: No stenosis. Mild bilateral facet arthritis. L2-L3: Mild annular disc bulging with ligamentum flavum and facet arthritis. No stenosis. L3-L4: Mild annular disc bulging with marked ligamentum flavum and facet arthritis. Disc encroachment upon the lateral recesses contacting the traversing L4 nerve roots. Mild bilateral foraminal narrowi ng. L4-L5: Mild annular disc bulging with marked ligamentum flavum and facet arthritis. Disc encroachment upon the ventral thecal sac with nerve root contact on the traversing L5 nerve roots. Mild central a nd RIGHT foraminal stenosis. L5-S1: Mild annular disc bulging with a central disc protrusion. Moderate facet joint arthritis. Mild bilateral foraminal stenosis. Small cortical cyst LEFT kidney. Mild atherosclerosis aorta. MR/MR lumbar spine wo con* [id number] IMPRESSION: 1. No high-grade central or foraminal stenosis. 2. Facet joint arthritis throughout the lumbar spine. Most significant from L3 -4 through L5-S1. 3. Disc bulging at L3-4 and L4-5 contacting the traversing nerve roots of L4 a nd L5. 4. Mild bilateral foraminal narrowing at L3-4 and L5-S1. 5. Mild central and RIGHT foraminal stenosis at L4-5. 6. Very mild progression of facet joint arthritis since the prior study.
== END 2023-03-05 12:17 | disposition home or self-care (01) ==
PROVIDERS: PCP Nurse Practitioner; Visit Provider Orthopaedic Surgery
DX: M54.2 Cervicalgia (principal); M47.817 Spondylosis without myelopathy or radiculopathy, lumbosacral region; M51.36 Other intervertebral disc degeneration, lumbar region; M48.061 Spinal stenosis, lumbar region without neurogenic claudication
CPT/HCPCS: 72141; 72148

== ENCOUNTER → 2023-03-06 15:10 | Outpatient (BNVA) | payer MEDICARE, SELFPAY | PROVIDERS: PCP Nurse Practitioner; Visit Provider Specialist | DX: M25.551 Pain in right hip (principal); M62.81 Muscle weakness (generalized) | CPT/HCPCS: 73502; 99204 ==

== ENCOUNTER 2023-04-01 08:58 | Oncology outpatient (recurring) (ONCR) | payer MEDICARE, SELFPAY ==
[2023-04-01 12:31] LABS: Free T4 Free Thyroxine 1.42 ng/dL (0.82-1.77); Thyroid Stimulating Hormone 2.31 uIU/mL (0.27-4.20)
== END 2023-04-11 23:59 | disposition home or self-care (01) ==
PROVIDERS: PCP Nurse Practitioner; Visit Provider Internal Medicine Medical Oncology
DX: Z08 Encounter for follow-up examination after completed treatment for malignant neoplasm (principal); Z85.828 Personal history of other malignant neoplasm of skin; Z85.21 Personal history of malignant neoplasm of larynx; I10 Essential (primary) hypertension; R49.0 Dysphonia; Z87.891 Personal history of nicotine dependence
CPT/HCPCS: 36415; 84439; 84443; 99204

== ENCOUNTER → 2023-04-10 10:02 | Outpatient (BNVA) | payer MEDICARE, SELFPAY | PROVIDERS: PCP Nurse Practitioner; Referring Provider Nurse Practitioner Family; Visit Provider Psychiatry & Neurology Neurology | DX: R41.3 Other amnesia (principal); R55 Syncope and collapse; M54.2 Cervicalgia; R26.0 Ataxic gait; R29.2 Abnormal reflex; Z87.891 Personal history of nicotine dependence | CPT/HCPCS: 0346U; 36415; 82542; 83735; 84155; 84165; 86334; 86617; 99203 ==

== ENCOUNTER → 2023-04-18 10:51 | Outpatient (BNVA) | payer MEDICARE, SELFPAY | PROVIDERS: PCP Nurse Practitioner Family; Visit Provider Internal Medicine Pulmonary Disease | DX: J44.9 Chronic obstructive pulmonary disease, unspecified (principal); R06.02 Shortness of breath; J45.909 Unspecified asthma, uncomplicated; J84.10 Pulmonary fibrosis, unspecified; Z87.891 Personal history of nicotine dependence | CPT/HCPCS: 36415; 82785; 85025; 85651; 86003; 86140; 86160; 86162; 86200; 86235; 86255; 86376; 86431; 99204 ==

== ENCOUNTER 2023-04-23 13:37 | Outpatient (CLI) | payer MEDICARE, SELFPAY ==
--- NOTE | 2023-04-23 14:15 | USCV_ITS ---
Tristian Hernandez Age: 67 Gender: M : 1955 Exam Date: 04/23/2023 14:05 Ordering Phys: Pedro Perez MD Technologist: Exam Location: [facility] [place] Indication: hx of pad and cad Risk Factors: Previous Vascular Surgery: Right Brachial BP: / Left Brachial BP: / Right Left Velocity (cm/s) Spectral Plaque Velocity (cm/s) Spectral Plaque Syst/Diast Broadening Syst/Diast Broadening 67.30/ 8.80 Prox CCA 79.40 / 12.10 60.05/ 14.30 Mid CCA 87.10 / 16.50 60.60/ 8.80 Distal CCA 79.40 / 17.60 83.80/ 15.40 Prox ICA 92.60 / 13.20 83.80/ 25.40 Mid ICA 84.90 / 24.30 86.00/ 33.10 Distal ICA 78.30 / 29.80 101.40 ECA 118.00 1.28 ICA/CCA 1.06 Antegrade Vertebral Antegrade 103.6/ 18.70 cm/s 82.70/ 19.80 cm/s 0 Tri Subclavian Tri 67.30 142.9 0 FINDINGS Comparison: none available. No significant elevation of systolic or diastolic velocities. Waveforms are normal. No significant amount of calcified plaque or intimal thickening identified. Minimal carotid plaque. CONCLUSIONS Bilateral ICA stenosis less than 50%. Minimal carotid plaque. Dr. Salma Najera DO (Electronically Signed) Final Date: 23 April 2023 14:56 S
== END 2023-04-23 13:38 | disposition home or self-care (01) ==
LOC: RAD 13:39
PROVIDERS: PCP Nurse Practitioner Family; Visit Provider Psychiatry & Neurology Neurology
DX: I65.23 Occlusion and stenosis of bilateral carotid arteries (principal); R55 Syncope and collapse
CPT/HCPCS: 93880

== ENCOUNTER 2023-04-29 14:58 | Oncology outpatient (recurring) (ONCR) | payer MEDICARE, SELFPAY | END 2023-05-11 23:59 | disposition home or self-care (01) | LOC: ONCMED 14:59 | PROVIDERS: PCP Nurse Practitioner Family; Visit Provider Internal Medicine Medical Oncology | DX: Z85.828 Personal history of other malignant neoplasm of skin (principal); Z85.21 Personal history of malignant neoplasm of larynx | CPT/HCPCS: 99213 ==

== ENCOUNTER 2023-05-02 08:45 | Outpatient (CLI) | payer MEDICARE, SELFPAY ==
[2023-05-02 09:19] VITALS: PULSE 58; RESP 18; O2SAT 99
[2023-05-02 09:24] VITALS: PULSE 55
[2023-05-02] MEDS: albuterol 2.5 mg/3 mL Neb INHALATION (09:28)
== END 2023-05-02 08:46 | disposition home or self-care (01) ==
PROVIDERS: PCP Nurse Practitioner Family; Visit Provider Internal Medicine Pulmonary Disease
DX: J44.9 Chronic obstructive pulmonary disease, unspecified (principal)
CPT/HCPCS: 36415; 82785; 85025; 85651; 86003; 86140; 86160; 86162; 86200; 86235; 86255; 86376; 86431; 94060; 94618; 94726; 94729; 99204; J7613

== ENCOUNTER 2023-05-07 09:33 | Outpatient (CLI) | payer MEDICARE, SELFPAY ==
--- NOTE | 2023-05-07 | ECG_ITS ---
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 Interpretive Statements NAME OF STUDY: LEXISCAN SESTAMIBI STRESS TEST INDICATION: [Shortness of Breath] PROCEDURE: At the baseline, the EKG revealed sinus bradycardia with a poor R wave progression. The baseline heart was 59 bpm with a blood pressue of 147/77 mm of Hg Lexiscan was infused over a period of 20 seconds. A total of 0.4 milligrams of Lexiscan was infused. The stress phase was continued for a total of 5 minutes. Heart rate at the end of the stress phase was 85 bpm with a blood pressure 137/77 mm of Hg. The EKG at the peak infusion revealed no significant changes. Sestamibi was injected 20 seconds after the Lexiscan infusion. Occasional PVCs were noted during the Lexiscan infusion Heart rate at the end of the recovery phase was 71 bpm with a blood pressure of 157/79 mm of Hg. CONCLUSION: 1. No significant EKG changes with the LexiScan infusion 2. No LexiScan induced chest pain or cardiac arrhythmia 3. Normal blood pressure and heart rate response 4. Sestamibi/sestamibi perfusion scan pending; see separate report. Electronically Signed On 05-09-2023 23:41:03 CDT by Kae Morales M.D. [email or web address]
[2023-05-07 09:38] VITALS: BMI 28.1
--- NOTE | 2023-05-07 09:41 | NMCV_ITS ---
NM malorie perf SPECT r/s* [id number] David Tristian Age: 67 Gender: M : 1955 Exam Date: 05/07/2023 09:41 Ordering Phys: Nabil Greenberg MD Technologist: YULIYA Mike Exam Location: [facility] Indications: SHORTNESS OF BREATH STRESS TEST Please see separate stress test [facility] for full findings IMAGE PROTOCOL Rest/Stress 1 Lexiscan Day Radiopharmaceutical Dose (mCi) Administration Site Administered by Rest: Tc-99m 10.6 IV Jonelle Layne, CALL WORKER Sestamibi Stress:Tc-99m 32.7 IV Jonelle Layne, CALL WORKER Sestamibi Rest: 07-May-2023 60 Discovery 630 Stress: 07-May-2023 30 Discovery 630 0.4mg Lexiscan. Supine position only as patient was unable to lay prone. SPECT RESULTS Technical Quality: Excellent Raw Data Analysis: Normal Image Corrections: No attenuation or motion correction applied Summed Stress Score: 10 Summed Rest Score: 7 Summed Difference Score: 4 PERFUSION FINDINGS Moderate area of minimal to moderately decreased tracer uptake in the mid and apical inferior, mid inferoseptal lateral, apical lateral, mid inferoseptal and LV apex. Some reversibility was noted in the mid inferolateral, inferior and inferoseptal regions. FUNCTIONAL RESULTS (calculated via Gated SPECT) Stress Image LV EF (%): 68 Stress EDV (mL):90 TID: 0.9 Stress ESV (mL):29 FUNCTIONAL FINDINGS: Segmental wall motion analysis revealing no gross wall motion abnormalities IMPRESSIONS 1. Myocardial perfusion imaging revealing moderate area of decreased tracer uptake in the inferior, inferolateral and inferoseptal regions, inferoseptal and apical regions with some reversibility, suggesting myocardial scarring with ischemia, predominantly in the circumflex distribution. 2. Normal LV ejection fraction of 68%. 3. LV wall motion analysis revealing no gross wall motion abnormalities. 4. Normal LV volume Compared to the study from 01/08/2023, the ischemia appears to be mostly in the distribution of the left circumflex artery, even though the ischemic burden remains unchanged. Clinical correlation is recommended Dr Kae Morales MD [facility] (Electronically Signed) Final Date: 07 May 2023 19:14 S
--- NOTE | 2023-05-07 09:59 | SUR.PREOP ---
pre stres note Patient came in today for procedure using a cane. Gait is extremely unsteady and abnormal. He states that he is unable to walk on the treadmill. He's not sure why his test was ordered as an exercise test. He states that the pain in his low back and hip radiates to his groin and places pressure on his right testicle. After discussing with him he tells me that he was told if he cannot complete the test ordered the stress department will change stress modaility to a chemical version. After discussing with him that his current condition does not warrant an attempt at treadmill d/t safety concerns he is okay with proceeding with a chemical stress test. I reached out o Dr Greenberg's office for clarification to change stress test. Awaiting a call back.
[2023-05-07] MEDS: regadenoson 0.4 Mg/5 ml Syringe IVP (11:49)
[2023-05-07 12:34] VITALS: BP 152/77; PULSE 62
== END 2023-05-07 09:34 | disposition home or self-care (01) ==
LOC: CDL 09:34
PROVIDERS: PCP Nurse Practitioner Family; Visit Provider Internal Medicine Pulmonary Disease
DX: R06.02 Shortness of breath (principal)
CPT/HCPCS: 36415; 78452; 93017; 96374; A9500; J2785

== ENCOUNTER 2023-05-09 07:41 | Outpatient (CLI) | payer MEDICARE, SELFPAY ==
--- NOTE | 2023-05-09 08:00 | MR_ITS ---
WS: [id number] MRI HEAD WITH CONTRAST TECHNIQUE: Sagittal T1, T2 axial, T2 axial FLAIR, axial susceptibility weighted imaging, axial diffus ion weighted images, and coronal T2 images were obtained. Pre and post-T1 axial and post T1 coronal i mages. ADC and FSPGR images. CLINICAL INFORMATION: R41.3 - Other amnesia COMPARISON: None. FINDINGS: No evidence of restricted diffusion to suggest acute ischemia. Ventricular system and basilar cistern s are patent. No hemosiderin on susceptibility-weighted images. Normal optic chiasm and pituitary inf undibulum. Mild symmetric atrophy temporal lobes and hippocampal formations. Normal posterior fossa. Normal vascular flow voids at the skull base. No extra-axial fluid collections. Paranasal sinuses and mastoid air cells are well aerated. Normal posterior nasopharynx and parapharyngeal fat. Mild small vessel changes. Small vessel changes in the belinda. No hemosiderin on susceptibly weighted images. No abnormal gadolinium enhancement. Floresita l dural venous sinuses. IMPRESSION: 1. No evidence of restricted diffusion to suggest acute ischemia. 2. Mild small vessel changes with mild parenchymal volume loss. Small vessel changes in the belinda. 3. No hemosiderin on the susceptibly weighted images. 4. No abnormal gadolinium enhancement. 5. Mild symmetric atrophy temporal lobes and hippocampal formations.
--- NOTE | 2023-05-09 08:45 | MR_ITS ---
WS: [id number] MR CERVICAL SPINE WITH GADOLINIUM ENHANCEMENT DATE OF EXAMINATION: 03/26/2023 COMPARISON: MRI 03/05/2023 HISTORY: TECHNIQUE: Sagittal T2 and post gadolinium imaging with fat saturation technique. FINDINGS: Post gadolinium imaging was obtained. Comparison to prior noncontrast MRI 03/05/2023 Small disc protrusions C3-C4 C4-C5 and C5-C6. Stable moderate central canal stenosis at C3-C4. No abn ormal gadolinium enhancement. No enhancing lesions within the cervical cord. Cervical alignment is un changed. No other interval changes. IMPRESSION: 1. No abnormal gadolinium enhancement. No enhancing lesions in the cervical cord. 2. Disc protrusions at C3-C4 C4-C5 and C5-C6 with moderate central canal stenosis at C3-C4 unchanged .
[2023-05-09] MEDS: gadobenate dimeglumine 20 mL vial IV (08:58)
== END 2023-05-09 07:42 | disposition home or self-care (01) ==
PROVIDERS: PCP Nurse Practitioner Family; Visit Provider Psychiatry & Neurology Neurology
DX: R41.3 Other amnesia (principal); M50.222 Other cervical disc displacement at C5-C6 level; M50.221 Other cervical disc displacement at C4-C5 level; M50.21 Other cervical disc displacement, high cervical region
CPT/HCPCS: 70553; 72142; A9577

== ENCOUNTER → 2023-07-08 13:17 | Outpatient (BNVA) | payer MEDICARE, SELFPAY | PROVIDERS: PCP Nurse Practitioner Family; Visit Provider Specialist | DX: M16.11 Unilateral primary osteoarthritis, right hip | CPT/HCPCS: 73502; 99214 ==

== ENCOUNTER → 2023-07-17 14:21 | Outpatient (BNVA) | payer MEDICARE, SELFPAY | PROVIDERS: PCP Nurse Practitioner Family; Referring Provider Nurse Practitioner Family; Visit Provider Psychiatry & Neurology Neurology | DX: M48.02 Spinal stenosis, cervical region (principal); R41.3 Other amnesia | CPT/HCPCS: 99212 ==

== ENCOUNTER → 2023-08-19 13:14 | Outpatient (BNVA) | payer MEDICARE, SELFPAY | PROVIDERS: PCP Nurse Practitioner Family; Visit Provider Specialist | DX: M16.11 Unilateral primary osteoarthritis, right hip (principal) | CPT/HCPCS: 99214 ==

== ENCOUNTER → 2023-09-20 14:00 | Outpatient (BNVA) | payer MEDICARE, SELFPAY | PROVIDERS: PCP Nurse Practitioner Family; Referring Provider Psychiatry & Neurology Neurology; Visit Provider Orthopaedic Surgery | DX: M48.02 Spinal stenosis, cervical region (principal); G95.89 Other specified diseases of spinal cord; M47.12 Other spondylosis with myelopathy, cervical region; Z01.812 Encounter for preprocedural laboratory examination | CPT/HCPCS: 36415; 72100; 80053; 81003; 85025; 99214 ==

== ENCOUNTER 2023-09-30 13:27 | Observation (INO) | payer MEDICARE, SELFPAY ==
[2023-09-30] VITALS (15 sets, daily range): BP systolic 136–187; BP diastolic 60–105; PULSE 60–77; RESP 16–21; TEMP 36.4–36.9; O2SAT 92–99; BMI 28.1
--- NOTE | 2023-09-30 | XR_ITS ---
WS: [id number] INTRAOPERATIVE TECHNIQUE: 2 Spot fluoroscopic images for intraoperative purposes. FLUOROSCOPY TIME: 7.9 seconds CLINICAL INFORMATION: OR pic, acdf COMPARISON: None. FINDINGS: Intraoperative changes ACDF C3-C5. Hardware appears in good position. Endotracheal tube. IMPRESSION: Images obtained for intraoperative purposes.
[2023-09-30] MEDS: sodium chloride 0.9% 1,000 ML 30 ML IV (09:04)
--- NOTE | 2023-09-30 09:09 | ANES.PREANE2 ---
Pre-Anesthetic Assessment Height/Weight: Height 1.78 m Weight 88.904 kg Temp Pulse Resp BP Pulse Ox O2 Del Method 98.5 F 64 16 167/83 96 Room Air 09/30/23 08:45 09/30/23 08:45 09/30/23 08:45 09/30/23 08:45 09/30/23 08:45 09/30/23 08:48 Preop Diagnosis: Cervical spondylosis with myelopathy Operation Date: 09/30/23 10:10 Proposed Procedures p Anterior Cervical Discectomy & Fusion ACDF w/ Anterior Interbody Fusion w/ Instrumentation w/ Allograft w/ Navigation(Not Applicable) - Jann Pantoja, Last intake: Intake Last Liquid Date 09/29/23 Last Liquid Time 22:00 Last Solid Date 09/29/23 Last Solid Time 21:00 Social No alcohol and No tobacco Medical marijuana last used 7 pm yesterday Exam alert, oriented x 3, clear to auscultation bilaterally and regular rate & rhythm Airway Mallampati: Class II Dentition: false Pulmonary Asthma CV/HEM Hypertension and Peripheral Vascular Disease CAROTID DOPPLER 04/23/23 CONCLUSIONS Bilateral ICA stenosis less than 50%. Minimal carotid plaque. SESTAMIBI STRESS TEST 05/07/23 CONCLUSION: 1. No significant EKG changes with the LexiScan infusion 2. No LexiScan induced chest pain or cardiac arrhythmia 3. Normal blood pressure and heart rate response CARDIAC PERFUSION SCAN 05/07/23 IMPRESSIONS 1. Myocardial perfusion imaging revealing moderate area of decreased tracer uptake in the inferior, inferolateral and inferoseptal regions, inferoseptal and apical regions with some reversibility, suggesting myocardial scarring with ischemia, predominantly in the circumflex distribution. 2. Normal LV ejection fraction of 68%. 3. LV wall motion analysis revealing no gross wall motion abnormalities. 4. Normal LV volume Compared to the study from 01/08/2023, the ischemia appears to be mostly in the distribution of the left circumflex artery, even though the ischemic burden remains unchanged. Clinical correlation is recommended ECHOCARDIOGRAM 05/27/23 CONCLUSIONS 1. Normal left ventricular size, systolic function and wall thickness, with no regional wall motion abnormalities. Left ventricular ejection fraction is estimated at 65 %. Normal diastolic function. 2. Normal right ventricular size and systolic function. 3. Mild aortic valve regurgitation. 4. No prior similar studies to compare Anesthetic Plan ASA status: 3 Anesthesia: General Risk of > 500 ml blood loss (7ml/kg in children): No Medications/Allergies Home Medications Medication Instructions Recorded Confirmed Last Taken Type albuterol sulfate 90 mcg/actuation 2 puff inhalation Q6H PRN 11/10/19 09/27/23 09/30/23 History aerosol inhaler (ProAir HFA) Shortness Of Breath aspirin 81 mg tablet,delayed 81 mg PO DAILY 11/10/19 09/27/23 09/25/23 History release (Adult Low Dose Aspirin) fluticasone propionate 50 1 spray intranasal DAILY PRN 11/10/19 09/27/23 09/29/23 History mcg/actuation nasal Allergy Symptoms spray,suspension (Flonase Allergy Relief) levothyroxine 50 mcg capsule 50 mcg PO DAILY 11/10/19 09/27/23 09/29/23 History amlodipine 5 mg tablet 5 mg PO DAILY #30 tabs 08/28/21 09/27/23 09/29/23 Rx Custom Molded Orthotics #1 ea 01/22/23 09/25/23 Unknown Rx potassium chloride 8 mEq 8 meq PO DAILY #7 tabs 01/28/23 09/27/23 09/29/23 Rx tablet,extended release (Klor-Con) clopidogrel 75 mg tablet 75 mg PO DAILY #90 tabs 02/05/23 09/27/23 09/24/23 Rx budesonide-formoterol HFA 160 1 inh inhalation BID 04/18/23 09/27/23 09/26/23 History mcg-4.5 mcg/actuation aerosol inhaler (Symbicort) clobetasol 0.05 % topical gel 1 applic topical DAILY PRN Itching 06/26/23 09/27/23 09/24/23 History pantoprazole 40 mg tablet,delayed 40 mg PO DAILY 07/17/23 09/27/23 09/29/23 History release atorvastatin 20 mg tablet 20 mg PO DAILY 08/19/23 09/27/23 09/30/23 History isosorbide mononitrate 30 mg 30 mg PO DAILY #90 tabs 09/04/23 09/27/23 09/30/23 Rx tablet,extended release 24 hr tizanidine 4 mg capsule 4 mg PO BID PRN Spasms 09/27/23 09/27/23 09/27/23 History Allergies Allergy/AdvReac Type Severity Reaction Status Date / Time Penicillins Allergy UNK Verified 09/27/23 09:10 Current Medications Generic Name Dose Route Start Last Admin Trade Name Wes PRN Reason Stop Dose Admin Sodium Chloride 1,000 mls @ 30 mls/hr 09/30/23 08:30 09/30/23 09:04 Sodium Chloride 0.9% IV 10/01/23 08:29 30 mls/hr .Q24H GAEL Administration PFSH Anesthesia Medical History Dyslipidemia Hematochezia Acute diverticulitis History of glottic cancer History of radiation therapy Claudication of lower extremity with history of revascularization COPD (chronic obstructive pulmonary disease) History of skin cancer Peripheral Vascular Disease Varicose veins of anus or rectum HTN (hypertension) Surgical History History of colonoscopy 3 to 4years History of skin surgery S/P appendectomy S/P cholecystectomy S/P knee surgery Left Family History Other History of radiation therapy Social History Smoking and tobacco/nicotine status: former use of tobacco/nicotine Quit status (tobacco/nicotine): has quit using Year quit tobacco: 2015 Former quit date comment: 40+ years Data Anesthesia Cardiac Studies: Echocardiogram 06/06/22 Sestamibi Stress Test (Cardiology) 05/07/23
--- NOTE | 2023-09-30 10:28 | W.PM.OPSUD ---
Surgery/Procedure H&P Update DATE OF PROCEDURE: September 30, 2023 DATE H&P PERFORMED: 09/25/23 H&P UPDATE INFORMATION: I have reviewed H&P completed within last 30 days, I have examined patient prior to procedure and No changes to prior documentation PREOP DIAGNOSIS: Cervical spondylosis with myelopathy PLANNED PROCEDURE: Operation Date: 09/30/23 10:10 Proposed Procedures p Anterior Cervical Discectomy & Fusion ACDF w/ Anterior Interbody Fusion w/ Instrumentation w/ Allograft w/ Navigation(Not Applicable) - Jann Pantoja DO
[2023-09-30] MEDS: ceFAZolin 2,000 MG in sodium chloride 0.9% (plus) 50 ML 100 MG IV ×2 (11:04→17:56)
[2023-09-30] MEDS: lidocaine-epi 1% 20 mL INJ INJECTION (11:52)
--- NOTE | 2023-09-30 13:50 | P.OP_ITS ---
Operative Report Date of procedure: September 30, 2023 Pre-op diagnosis: Cervical spondylosis with myelopathy Post-op diagnosis: same Procedure done: 1. Anterior diskectomy C3/4 2. Anterior discectomy C4/5 3. Insertion of cage C3/4 4. Insertion of Cage C4/5 5. Instrumentation with anterior plate from C3-C5 6. Use of allograft Surgeon: Jann Pantoja DO Estimated blood loss (mL): 15 Procedure: 1. Anterior diskectomy C3/4 2. Anterior discectomy C4/5 3. Insertion of cage C3/4 4. Insertion of Cage C4/5 5. Instrumentation with anterior plate from C3-C5 6. Use of allograft The patient was taken to the operating room, where he underwent general endotracheal anesthesia without complications. He was then positioned supine on the operating table, and all areas of impingement were well padded. The arms were carefully padded and tucked at his sides. A roll was placed between the shoulder blades.. An x-ray was done to determine the appropriate level for the skin incision. The entire neck was then sterilely prepped and draped in the usual fashion. Neuromonitoring was attached prior to prepping. A transverse skin incision was made and carried down to the platysma muscle. This was then split in line with its fibers. Blunt dissection was carried down medial to the carotid sheath and lateral to the trachea and esophagus until the anterior cervical spine was visualized. A needle was placed into a disc and an x-ray was done to determine its location. The longus colli muscles were then elevated bilaterally with the electrocautery unit. Self-retaining retractors were placed deep to the longus colli muscle. Attention was brought to the C3/4 level that was confirmed on x-ray. A caspar pin was placed into the C3 vertebrae and the C4 vertebrae. The disk space was then distracted. The microscope was then brought in. A radical anterior discectomies were performed at C3/4. This included complete removal of the anterior annulus, nucleus, and posterior annulus. The posterior longitudinal ligament was removed as were the posterior osteophytes. Foraminotomies were then accomplished bilaterally. This was done using a high speed marixa, kerrison rongeurs and curretes Once all of this was accomplished, the curved currette was used to check for any residual compression. The central canal was wide open as were the foramen. A high-speed bur was used to remove the cartilaginous endplates above and below the interspace. Bleeding cancellous bone was exposed. The disc space were measured and appropriate size cage were placed sterilely onto the field. Allograft graft was packed into the cages. The cage was then placed and there was good juxtaposition against the bleeding decorticated surfaces and good distraction of each interspace. Attention was brought to the next interspace. The [place] pins were removed. Bone wax was used to prevent any bleeding from occurring at the pin sites. Attention was brought to the C4/5 level that was confirmed on x-ray. A caspar pin was placed into the C4 vertebrae and the C5 vertebrae. The disk space was then distracted. The microscope was then brought in. A radical anterior discectomies were performed at C4/5. This included complete removal of the anterior annulus, nucleus, and posterior annulus. The posterior longitudinal ligament was removed as were the posterior osteophytes. Foraminotomies were then accomplished bilaterally. This was done using a high speed marixa, kerrison rongeurs and curretes Once all of this was accomplished, the curved currette was used to check for any residual compression. The central canal was wide open as were the foramen. A high-speed bur was used to remove the cartilaginous endplates above and below the interspace. Bleeding cancellous bone was exposed. The disc space were measured and appropriate size cage were placed sterilely onto the field. Allograft graft was packed into the cages. The cage was then placed and there was good juxtaposition against the bleeding decorticated surfaces and good distraction of each interspace. Attention was brought to the next interspace. However the hyoid was not very mobile and I cannot reach the C5-6 disc base without concern for injuring or tearing muscle. The [place] pins were removed. Bone wax was used to prevent any bleeding from occurring at the pin sites. The appropriate size anterior cervical locking plate was chosen and bent into gentle lordosis. Two screws were then placed into each of the vertebral bodies at C4, C5 and C6. There was excellent purchase. A final x-ray was done confirming good position of the hardware and Cages. The locking screws were then applied, also with excellent purchase. Following a final copious irrigation, there was good hemostasis and no dural leaks. The carotid pulse was strong. The wounds were then closed in layers using 2-0 Vicryl suture for the platysma muscle, 2-0 Vicryl suture for the subcutaneous tissue, and 4-0 monocryl suture in a subcuticular skin closure. Glue was placed followed by application of a sterile dressing. The drain was hooked to bulb suction. A soft collar was applied. The patient was then carefully returned to the supine position on his hospital bed where he was reversed and extubated and taken to the recovery room having tolerated the procedure well.
[2023-09-30] MEDS: HYDROmorphone 1 mg/mL INJ 1 mL 0.5 MG IVP (13:51)
--- NOTE | 2023-09-30 14:20 | ANE.PACU2 ---
Inpatient post-anesthesia follow up: Airway intact: Yes Vital signs: Temperature 97.9 F Pulse Rate 65 Respiratory Rate 17 Blood Pressure 162/78 Pulse Oximetry 94 Oxygen Delivery Me thod Room Air Oxygen Flow Rate 6 Fraction of Inspir ed Oxygen Hydration adequate: Yes Nausea and vomiting: No Pain level: 1 Mental status: Baseline
[2023-09-30] MEDS: HYDROcodone-acetaminophen 5-325 mg Tablet PO (15:21)
[2023-09-30] MEDS: lactated ringers 1,000 ML 90 ML IV (15:28)
[2023-09-30] MEDS: morphine 4 mg/mL SDV 1 mL 2 MG IVP ×2 (17:55→20:31)
[2023-09-30] MEDS: docusate sodium 100 mg Capsule PO (17:55)
[2023-10-01] MEDS: HYDROcodone-acetaminophen 5-325 mg Tablet PO ×2 (01:05→08:21)
[2023-10-01] MEDS: lactated ringers 1,000 ML 90 ML IV (03:05)
[2023-10-01] MEDS: ceFAZolin 2,000 MG in sodium chloride 0.9% (plus) 50 ML 100 MG IV ×2 (03:05→09:53)
[2023-10-01 04:00] VITALS: BP 132/72; PULSE 65; RESP 18; TEMP 37.1; O2SAT 95
--- OUTSIDE RECORDS SUMMARY | 2023-10-01 05:52 | XMS_ITS | Continuity of Care Document ---
Author Name Unknown Organization [facility] Address [address] [place] [address]- Care Team Providers Care Flight Steward Name Role Phone Jamil Alley GUZMAN Primary Care Physician Encounter [employer] Number [id number] Date(s): 06/27/23 - 06/27/23 [facility] [address] [place] [address]- Encounter Diagnosis Rectal bleed(Discharge Diagnosis) - 06/27/23 Change in bowel habit(Discharge Diagnosis) - 06/27/23 Discharge Disposition: .Discharge to Home (Routine) Attending Physician: Owen Acevedo MD Admitting Physician: Owen Acevedo MD Allergies, Adverse Reactions, Alerts Substance Reaction Severity Status penicillins Active Assessment and Plan Future Appointments Appointment Date:07/09/2023 02:15:00 PM Scheduled Provider:Libby Zamarripa NP Location:-[facility] Appointment Type:Established Patient Appointment Date:11/29/2023 01:30:00 PM Scheduled Provider:Alley Jamil NP [facility] Appointment Type:Established Patient Future Scheduled Tests Laboratory* TSH 07/24/23 Radiology* CT Abd Pelvis w Contrast Routine 07/26/22 * CT Chest w Contrast 02/07/23 * CT Neck Soft Tissue w Contrast Routine 02/07/23 * XR Hip 3 View Right w AP Pelvis 02/07/23 Immunizations Given and Recorded Vaccine Date Status Refusal Reason zoster vaccine Shingrix, inactivated 1 12/18/22 Re corded zoster vaccine Shingrix, inactivated 2 10/10/22 Re corded COVID-19 Pfizer Bivalent Booster 5-11y 3 06/11/22 Recorded influenza virus vaccine 4 06/01/22 Recorded influenza virus vaccine 05/08/21 Recorded influenza virus vaccine 5 03/28/20 Recorded influenza virus vaccine 6 06/09/19 Recorded influenza virus vaccine 7 05/06/19 Recorded influenza virus vaccine 8 05/06/19 Recorded influenza virus vaccine 05/18/18 Recorded influenza virus vaccine 07/16/17 Recorded influenza virus vaccine 05/27/17 Recorded COVID-19 SARS-CoV-2 mRNA-1273 Moderna 11/27/21 Rec orded COVID-19 SARS-CoV-2 mRNA Pfizer (adult) 05/18/21 R ecorded COVID-19 SARS-CoV-2 mRNA Pfizer (adult) 10/07/20 R ecorded COVID-19 SARS-CoV-2 mRNA Pfizer (adult) 09/09/20 R ecorded Prevnar 13 pneumococcal 13-valent 9 06/09/19 Recor ded Prevnar 13 pneumococcal 13-valent 05/27/17 Recorde d Pneumovax 23 pneumococcal 23-valent 05/06/19 Recor ded Pneumovax 23 pneumococcal 23-valent 12/10/18 Given Pneumovax 23 pneumococcal 23-valent 07/16/17 Recor ded 1Location History: [facility] [place] 2Location History: [facility] [place], [place] 3Location History: [facility] [place], [place] 4Location History: [facility] [place] 5Location History: [place], [place] 6Location History: [place], [place] 7Location History: [place], [place] 8Location History: [place], [place] 9Location History: [place], [place] Medications Albuterol (Eqv-ProAir HFA) 90 mcg/inh inhalation aerosol 2 puff, Inhalation, Q6H, NEEDED FOR WHEEZING, # 9 g, 25, Refill(s) 3, Route to Pharmacy Electronically, Pharmacy: [facility], [id number], INHALE 2 PUFFS BY MOUTHEVERY 6 HOURS NEEDED FOR WHEEZING, 90.45, 05/29/... Start Date: 06/13/23 Status: Ordered amLODIPine 5 mg oral tablet = 1 tab, By mouth, Daily, # 90 tab, Refill(s) 0, Pharmacy: [facility], [id number], 1 tab By mouth Daily, 91.32, 05/08/23 10:53:00 CDT, kg, Weight (kg) (Clinical) Start Date: 05/20/23 Status: Ordered aspirin 81 mg oral tablet 81 mg = 1 tab, By mouth, Daily, # 30 tab, Refill(s) 0 Start Date: 08/21/17 Status: Ordered atenolol 25 mg oral tablet = 1 tab, By mouth, Daily, # 90 tab, Refill(s) 3, Pharmacy: [facility], [id number], 1 tab By mouth Daily, 90.45, 05/29/23 13:11:00 CDT, kg, Weight (kg) (Clinical) Start Date: 06/17/23 Status: Ordered atorvastatin 20 mg oral tablet = 1 tab, By mouth, QPM (every evening), # 90 tab, Refill(s) 0, Pharmacy: [facility], [id number], 1 tab By mouth QPM (every evening), 91.32, 05/08/23 10:53:00 CDT, kg, Weight (kg) (Clinical) Start Date: 05/20/23 Status: Ordered fluticasone 50 mcg/inh nasal spray 2 spray, Both Nostrils, BID, # 16 g, Refill(s) 5, Route to Pharmacy Electronically, Pharmacy: [facility], [id number], 2 spray Both Nostrils BID, 68.5, 12/16/19 16:12:00 CDT, in, 103.55, 12/16/19 16:12:00 CDT, kg, Weight Start Date: 12/16/19 Status: Ordered isosorbide dinitrate 30 mg oral tablet 30 mg = 1 tab, By mouth, Daily, filled by Dr Acevedo, # 90 tab, Refill(s) 3, Pharmacy: [facility], [id number], TAB, 1 tab By mouth Daily,Instr:filled by Dr Acevedo, 68.5,12/29/20 13:32:00 CDT, in, 96.36, 12/29/20 13:32:00... Start Date: 12/29/20 Status: Ordered levothyroxine 50 mcg (0.05 mg) oral tablet = 1 tab, By mouth, Daily, # 90 tab, Refill(s) 3, Pharmacy: [facility], [id number], 1 tab By mouth Daily, 90.45, 05/29/23 13:11:00 CDT, kg, Weight (kg) (Clinical) Start Date: 06/13/23 Status: Ordered Magnesium Refill(s) 0 Start Date: 05/29/23 Status: Ordered montelukast By mouth, Refill(s) 0 Start Date: 05/08/23 Status: Ordered Plavix 75 mg oral tablet 75 mg = 1 tab, By mouth, Daily, # 90 tab, Refill(s) 0 Start Date: 06/23/20 Status: Ordered potassium chloride 8 mEq (600 mg) oral tablet, extended release 7 EA, TAKE 1 TABLET BY MOUTH ONCE DAILY, Refill(s) 0 Start Date: 05/29/23 Status: Ordered Symbicort 160/4.5 inhalation aerosol with adapter 2 puff, Inhalation, BID, # 10.2 g, Refill(s) 6, Route to Pharmacy Electronically, Pharmacy: [facility], [id number], 2 puff Inhalation BID, 88.64, 02/07/23 15:02:00 CDT, kg, Weight (kg) (Clinical) Start Date: 02/07/23 Status: Ordered traMADol 50 mg oral tablet 50 mg = 1 tab, By mouth, QID, PRN Pain Severe, # 20 tab, Refill(s) 0, Pharmacy: [facility], [id number], 1 tab By mouth QID,PRN:Pain Severe, 06/29/23, 90.45, 05/29/23 13:11:00 CDT, kg, Weight (kg) (Clinical) Start Date: 06/20/23 Status: Ordered Vitamin D3 25 mcg (1000 intl units) oral capsule 25 mcg = 1 cap, By mouth, Daily, # 75 cap, Refill(s) 0 Start Date: 05/29/23 Status: Ordered Problem List Condition Confirmation Course Effective Dates Status Health Status Informant Abdominal bloating Confirmed Active Acute lumbar back pain Confirmed Active Acute seasonal allergic rhinitis due to pollen Confirmed Active Elbow arthritis Confirmed Active Asthmatic bronchitis Confirmed Active Atherosclerosis of [place] arteries of extremities with intermittent claudication, bilateral legs Confirmed Active Atopic neurodermatitis Confirmed Active Atypical chest pain Confirmed Active Facial basal cell cancer Confirmed 12/04/21 Active Benign essential hypertension Confirmed Active Central obesity Confirmed Active Chronic obstructive pulmonary disease (COPD) Confirmed Active Asthma Confirmed Active CAD (coronary artery disease) Confirmed Active Diverticulosis Confirmed Active Ex-smoker Confirmed Active patient Chronic fatigue Confirmed Active Esophageal reflux disease Confirmed Active Hx of leukocytosis Confirmed Active History of skin cancer Confirmed Active Hypercholesterolemia Confirmed Active Hypothyroidism Confirmed Active Claudication in peripheral vascular disease Confirmed Active Schatzki's ring of distal esophagus Confirmed 10/02/04 Active Squamous cell cancer of scalp and skin of neck Confirmed 12/04/21 Active Cancer of skin of face Confirmed Active Cancer of head and neck Confirmed Active 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 Actinic keratoses Confirmed Active Myalgia Confirmed Active Neoplasm of uncertain behavior of skin Confirmed Active Colon polyps Confirmed Active Acute bacterial sinusitis Confirmed Resolved Hx of smoking Confirmed Active Procedures Procedure Date Related Diagnosis Body Site Status Colonoscopy - Endo 57319 1 06/27/23 Completed COLONOSCOPY FLX DX W/COLLJ S PEC WHEN PFRMD 06/27/23 Completed COLSC FLX W/RMVL OF TUMOR PO LYP LESION SNARE TQ 06/27/23 Completed Mohs chemosurgical excision of skin of head or neck 12/04/21 Completed Mohs micrographic surgery 08/17/21 Completed Rhizotomy Lumbar Additional Level 57593 2 07/31/21 Completed Rhizotomy Lumbar Single Level 25430 3 07/31/21 Completed Lumbar Facet Injection 2nd L evel 48434 4 07/18/21 Completed Lumbar Facet Injection Singl e Level 98563 5 07/18/21 Completed Lumbar Facet Injection Singl e Level 01774 6 02/07/21 Completed Lumbar/Sacral Transforaminal RAMON Single Level 68479 7 02/07/21 Completed Colonoscopy 11/22/15 Completed PEG - Percutaneous endoscopi c gastrostomy feeding 10/30/15 Completed Esophagogastroduodenoscopy 08/31/15 Completed Radiation therapy treatment management 08/31/15 Completed Appendectomy and drainage Completed Arthrectomy of knee Compl eted Bilateral extraction of cataracts Completed Cholecystectomy Completed feeding tube Completed stent placement x 7 Compl eted 1auto-populated from documented surgical case 2auto-populated from documented surgical case 3auto-populated from documented surgical case 4auto-populated from documented surgical case 5auto-populated from documented surgical case 6auto-populated from documented surgical case 7auto-populated from documented surgical case Vital Signs Most recent to oldest [Reference Range]: 1 2 3 Blood Pressure 141/78mmHg (06/27/23 11:46 AM) 131/83mmHg (06/27/23 11:31 AM) 131/83mmHg (06/27/23 11:31 AM) Height (inches) (Clinical) 70 in (06/27/23 11:31 AM) 70 in (06/27/23 9:59 AM) Weight (kg) (Clinical) 87 kg (06/27/23 9:59 AM) BMI (Clinical) 0 kg/m2 (06/27/23 11:31 AM) Social History Social History Type Response Smoking Status Former smoker; Smoke less tobacco use: Never; Has the patient smoked in the last 365 days, even once? No entered on: 07/26/22 Sex Male Hospital Discharge Instructions Patient Education 06/27/2023 10:01:55 Moderate Conscious Sedation, Adult, Care After Moderate Conscious Sedation, Adult, Care After This sheet gives you information about how to care for yourself after your procedure. Your health care provider may also give you more specific instructions. If you have problems or questions, contact your health care provider. What can I expect after the procedure? After the procedure, it is common to have: ??? Sleepiness for several hours. ??? Impaired judgment for several hours. ??? Difficulty with balance. ??? Vomiting if you eat too soon. Follow these instructions at home: For the time period you were told by your health care provider: ??? Rest. ??? Do not participate in activities where you could fall or become injured. ??? Do not drive or use machinery. ??? Do not drink alcohol. ??? Do not take sleeping pills or medicines that cause drowsiness. ??? Do not make important decisions or sign legal documents. ??? Do not take care of children on your own. Eating and drinking ??? Follow the diet recommended by your health care provider. ??? Drink enough fluid to keep your urine pale yellow. ??? If you vomit: ??? Drink water, juice, or soup when you can drink without vomiting. ??? Make sure you have little or no nausea before eating solid foods. General instructions ??? Take fqir-qxf-lfzvhth and prescription medicines only as told by your health care provider. ??? Have a responsible adult stay with you for the time you are told. It is important to have someone help care for you until you are awake and alert. ??? Do not smoke. ??? Keep all follow-up visits as told by your health care provider. This is important. Contact a health care provider if: ??? You are still sleepy or having trouble with balance after 24 hours. ??? You feel light-headed. ??? You keep feeling nauseous or you keep vomiting. ??? You develop a rash. ??? You have a fever. ??? You have redness or swelling around the IV site. Get help right away if: ??? You have trouble breathing. ??? You have new-onset confusion at home. Summary ??? After the procedure, it is common to feel sleepy, have impaired judgment, or feel nauseous if you eat too soon. ??? Rest after you get home. Know the things you should not do after the procedure. ??? Follow the diet recommended by your health care provider and drink enough fluid to keep your urine pale yellow. ??? Get help right away if you have trouble breathing or new-onset confusion at home. This information is not intended to replace advice given to you by your health care provider. Make sure you discuss any questions you have with your health care provider. Document Revised: 11/25/2020 Document Reviewed: 06/23/2020 [employer] Patient Education ?? 2022 [employer]. 06/27/2023 10:01:55 Colonoscopy, Adult, Care After, Aevk-kh-Zkyy Colonoscopy, Adult, Care After After a colonoscopy, it is common to have: ??? A small amount of blood in your poop (stool) for 24 hours. ??? Some gas. ??? Mild cramping or bloating in your belly (abdomen). Follow these instructions at home: Your doctor may give you more instructions. If you have problems, contact your doctor. Eating and drinking ??? Drink enough fluid to keep your pee (urine) pale yellow. ??? Follow instructions from your doctor about what you cannot eat or drink. ??? Return to your normal diet as told by your doctor. Avoid heavy or fried foods that are hard to digest. Activity ??? Rest as told by your doctor. ??? Get up to take short walks every 1 to 2 hours. Ask for help if you feel weak or unsteady. ??? Return to your normal activities when your doctor says that it is safe. To help cramping and bloating: ??? Try walking around. ??? If told, put heat on your belly. Do this as told by your doctor. Use the heat source that your doctor recommends, such as a moist heat pack or a heating pad. ??? Place a towel between your skin and the heat source. ??? Leave the heat on for 20???30 minutes. ??? Take off the heat if your skin turns bright red. This is very important. If you cannot feel pain, heat, or cold, you have a greater risk of getting burned. General instructions ??? If you were given a sedative during your procedure, do not drive or use machines until your doctor says that it is safe. A sedative is a medicine that helps you relax. ??? For the first 24 hours after the procedure: ??? Do not sign important documents. ??? Do not drink alcohol. ??? Do your daily activities more slowly than normal. ??? Eat foods that are soft and easy to digest. ??? Take bihf-aws-yhqavpi and prescription medicines only as told by your doctor. ??? Keep all follow-up visits. Contact a doctor if: ??? You have blood in your poop 2???3 days after the procedure. Get help right away if: ??? You have more than a small amount of blood in your poop. ??? You see large clumps of tissue (blood clots) in your poop. ??? Your belly is swollen. ??? You feel like you may vomit (nauseous). ??? You vomit. ??? You have a fever. ??? You have belly pain that gets worse, and medicine does not help your pain. These symptoms may be an emergency. Get help right away. Call 911. ??? Do not wait to see if the symptoms will go away. ??? Do not drive yourself to the hospital. Summary ??? After a colonoscopy, it is common to have a small amount of blood in your poop. You may also have mild cramping and bloating in your belly. ??? If you were given a sedative during your procedure, do not drive or use machines until your doctor says that it is safe. A sedative is a medicine that helps you relax. ??? Get help right away if you have a lot of blood in your poop, feel like you may vomit, have a fever, or have more belly pain. This information is not intended to replace advice given to you by your health care provider. Make sure you discuss any questions you have with your health care provider. Document Revised: 03/21/2022 Document Reviewed: 03/21/2022 [employer] Patient Education ?? 2021 [employer]. Surgical operation note * Owen Acevedo MD: PERFORM Event Display: Operative Report Authored Date: Name:??CORINNE HAMILTON - 1955 ? Colonoscopy Procedure??Report ? Procedure:??Colonoscopy-??diagnostic ?? Indications:??Change in bowel habits, rectal bleeding, constipation ?? Sedation:??Fentanyl??100 mcg IV, Versed 7 mg IV. ?? Procedure Details? Patient identification and proposed procedure were verified prior to the procedure by the physician??and nurse. ??The risks, benefits and alternatives of the procedure were reviewed with the patient including risks of conscious sedation, risks of infection, perforation, intraprocedural and post procedural hemorrhage, adverse drug reaction, missed cancer,??aspiration and complications which could lead to . ??After reviewing these risks, an informed consent was signed. ??The patient was placed in the left lateral decubitus position. ??Based on the pre-procedure assessment, including reviewof the patient's??medical history, medications, allergies, and review of systems,??the patient??hadbeen deemed to be an appropriate candidate for??conscious sedation; the patient was therefore sedated with the medications listed above. ?? The patient was monitored continuously with ECG tracing, pulse oximetry, blood pressure monitoring, and direct observations. ? A rectal examination was performed. ??The??Olympus colonoscope??was inserted into the rectum and advanced under direct visualization to the??cecum, which was identified by visualization of the appendiceal orifice and the ileo-cecal valve.??The??colonoscopy??was accomplished??easily. The terminal ileum??was not??intubated. A careful inspection was made as the colonoscope was withdrawn, including adetailed examination of the rectum; findings and interventions are described below. ??Appropriate photodocumentation??was??obtained. ?? Total??Sedation Time was??14 minutes. ?? The quality of the colonic preparation was??adequate. ?? Attending Attestation:??I personally performed the procedure. ?? Findings:?? -??Two??5mms-??7mms,??sessile??polyps were found in the??cecum and the ascending colon. These were resected with a??cold??snare. Resection was complete. Retrieval was??complete. -??Multiple,??small and large,??non-bleeding diverticula were visualized in the??left colon. -??Small-sized??non-bleeding, internal hemorrhoids were visualized on retroflexion. ? Complications:?none; patient tolerated the procedure well. ?? EBL:??minimal. ?? Impression: - Two small colon polyps; resected. - Diverticulosis. - Internal hemorrhoids. ? Recommendations: - Await pathology results.?? - Repeat colonoscopy in no later than??5 years??for surveillance based on pathology results. - Return to referring provider as previously scheduled. ? Thank you for the kind referral. ? Electronically signed by:Owen Acevedo MD 06/27/23 11:26 Patient Care team information Care Team Personnel Name: Joaquina Cormier MD Position: PX Physician - Oncologist Member Role: Oncologist Address: Address: [address] [place] [address]- Name: Alley Jamil NP Position: CAX-IG-Clparhvjtv Member Role: Primary Care Physician Address: Address: [address] [place] [address]- Care Team Related Persons Name: GIVEN, NON Name: NAYELY ADHIKARI Name: NAYELY ADHIKARI Address: home [address] [place], [place] [phone] [facility] Address: mailing [address] [place] [phone] [facility]
[2023-10-01 07:59] VITALS: BP 168/58; PULSE 68; RESP 16; TEMP 37.1; O2SAT 96
[2023-10-01] MEDS: docusate sodium 100 mg Capsule PO (08:21)
--- NOTE | 2023-10-01 08:34 | PM.DCS ---
Discharge Providers Date of Admission: 09/30/23 13:27 Date of Discharge: October 01, 2023 Attending Provider at Admission: Jann Pantoja DO Attending Provider at Discharge: Jann Pantoja DO Primary Care Provider: HIEN Riley Reason for Visit Reason for Visit: M47.12 Physical Exam Narrative: Patient is having swallowing problems otherwise he says the numbness and tingling feel better. Plan will be to discharge him today and follow-up in the clinic in 2 weeks. Urinary Catheter Management: Uriostegui: Cath Placed During This Visit: yes, but has since been removed by the nurse Urinary Catheter Date of Insertion: 09/30/23 Urinary Catheter Time of Insertion: 11:24 Date Urinary Catheter Removed: 09/30/23 Time Urinary Catheter Discontinued: 13:40 Discharge Data Studies Completed and Pending Pending at discharge Category Date Time Status XR cervical spine 3V* [id number] Routine Exams 09/30/23 Taken Vitals Last Vital Signs Temp 98.7 F 10/01/23 07:59 Pulse 68 10/01/23 07:59 Resp 16 10/01/23 07:59 BP 168/58 10/01/23 07:59 Pulse Ox 96 10/01/23 07:59 O2 Del Method Room Air 09/30/23 16:00 O2 Flow Rate 6 09/30/23 13:56 Discharge Plan Discharge Patient Disposition: Home Condition: Stable Prescriptions: New hydrocodone-acetaminophen 5-325 mg tablet 1 - 2 tab PO .Q4-6H Qty: 40 0RF Continued levothyroxine 50 mcg capsule 50 mcg PO DAILY aspirin [Adult Low Dose Aspirin] 81 mg tablet,delayed release (DR/EC) 81 mg PO DAILY fluticasone propionate [Flonase Allergy Relief] 50 mcg/actuation spray,suspension 1 spray INTRANASAL DAILY PRN (Reason: Allergy Symptoms) albuterol sulfate [ProAir HFA] 90 mcg/actuation HFA aerosol inhaler 2 puff INHALATION Q6H PRN (Reason: Shortness Of Breath) clobetasol 0.05 % gel 1 applic topical DAILY PRN (Reason: Itching) pantoprazole 40 mg tablet,delayed release (DR/EC) 40 mg PO DAILY budesonide-formoterol [Symbicort] 160-4.5 mcg/actuation HFA aerosol inhaler 1 inh inhalation BID amlodipine 5 mg tablet 5 mg PO DAILY Qty: 30 0RF (DME) Custom Molded Orthotics See Rx Instructions .Route .MEDSUPPLY Qty: 1 0RF Rx Instructions: As directed potassium chloride [Klor-Con 8] 8 mEq tablet extended release 8 meq PO DAILY Qty: 7 0RF clopidogrel 75 mg tablet 75 mg PO DAILY Qty: 90 3RF Hold Instructions: Resume on 03/31/22. isosorbide mononitrate 30 mg tablet extended release 24 hr 30 mg PO DAILY Qty: 90 3RF Rx Instructions: Take 1 tablet by mouth once daily tizanidine 4 mg Capsule 4 mg PO BID PRN (Reason: Spasms) atorvastatin 20 mg tablet 20 mg PO DAILY Rx Instructions: Take 1 tablet by mouth once daily Discharge Orders: Discharge Order (Routine); Ordered 10/01/23 Ordered By: Jann Pantoja Discharge Diet: Advance as tolerated Discharge Activity: Limit activity as instructed Patient Instructions: Opioid Safety Activity Restrictions/Additional Instructions: Thank you for choosing [facility] for your care! The following is a list of instructions, from your provider, to follow upon your discharge to ensure you have the optimal recovery from your recent injury or surgery. Anterior Cervical Discectomy and Fusion: What to Expect at Home Your Recovery Follow-up care is a ulrich part of your treatment and safety. Be sure to make and go to all appointments, and call your doctor if you are having problems. If you do not already have a follow-up appointment made, call office in the next 1-3 days to make follow up appointment for 2 weeks at [phone]. It is also a good idea to know your test results and keep a list of the medicines you take. You can expect your neck to feel stiff or sore after surgery. This should improve in the weeks after surgery. But it may take 4 to 6 months for you to get better completely. You may have trouble sitting or standing in one position for very long and may need pain medicine in the weeks after your surgery. It may take 4 to 6 weeks to get back to your usual activities, but it may depend on what kind of surgery you had. Your throat will feel sore and it may be difficult to swallow for the first 3 days after your surgery. As long as you can get liquids down without difficulty, this should slowly improve, otherwise call our office or seek medical attention if it becomes increasingly difficult to get anything down including liquids. Avoid hot liquids for first 3-5 days. Soothing foods/liquids such as jello, pudding, and luke warm soups are recommended until swallowing improves. Staying elevated will also help, it's advised you keep propped up at while sleeping to help reduce the swelling. You may use an ice pack directly on your incision or around it on the front of your neck, using a cloth to protect your skin; and a heating pad to the back of your neck as needed. Do not use over the counter anti-inflammatory medications (Ibuprofen, Motrin, Aleve, Advil, etc) Taking these meds after having a fusion can delay fusion rates, we recommend you avoid them for the first 3 months after your surgery. Dr. Pantoja may advise you to work with a physical therapist to strengthen the muscles around your neck and back - this will be discussed at your follow - up appointments. The pain or numbness you were having in your arms before surgery should get better or go away completely. This care sheet gives you a general idea about how long it will take for you to recover. But each person recovers at a different pace. Follow the steps below to get better as quickly as possible. How can you care for yourself at home? Activity ? Rest when you feel tired. Getting enough sleep will help you recover. ? Try to walk each day. Start by walking a little more than you did the day before. Bit by bit, increase the amount you walk. Walking boosts blood flow and helps prevent pneumonia and constipation. Walking may also decrease your muscle soreness after surgery. ? No lifting anything that is more that 5 pounds. This may include heavy grocery bags and milk containers, a heavy briefcase or backpack, cat litter or dog food bags, a child, or a vacuum hand bobbin cleaner. ? Avoid strenuous activities, such as bicycle riding, jogging, weightlifting, or aerobic exercise, until your doctor says it is okay. ? Do not drive until your follow-up visit after your surgery, or until your doctor says it isokay. ? Avoid taking long car trips for 2 to 4 weeks after surgery. Your neck may become tired and painful from sitting too long in one position. ? You will probably need to take 4 to 6 weeks off from work. It depends on the type of work you do and how you feel. ? You may have sex as soon as you feel able, but avoid positions that put stress on your neck or cause pain. Diet ? You can eat your normal diet. If your stomach is upset, try bland, low-fat foods like plain rice, broiled chicken, toast, and yogurt ? Drink plenty of fluids. If you have kidney, heart, or liver disease and have to limit fluids, talk with your doctor before you increase the amount of fluids you drink. ? You may notice that your bowel movements are not regular right after your surgery. This is common. Try to avoid constipation and straining with bowel movements. You may want to take a fiber supplement every day. If you have not had a bowel movement after a couple of days, ask your doctor about taking a mild laxative. Medicines ? Take pain medicines exactly as directed. 1. If Dr. Pantoja gave you a prescription medicine for pain, take lt as prescribed. 2. Do not take two or more pain medicines at the same time unless the doctor told you to. Many pain medicines have acetaminophen, which is Tylenol. Too much acetaminophen {Tylenol) can be harmful. 3. If you think your pain pill is making you sick to your stomach: 4. Take your pills after meals (unless your doctor has told you not to). 5. Ask your Dr. for a different pain pill. Incisioncare ? Remove your dressing 48hours after your surgery. Ok to shower and get the incision wet. Do not overtly wash your incision. When done, pad dry, leave open to air thereafter. Avoid creams and ointments directly on your incision. ? Your sutures in the incision will dissolve and fall out on their own. ? Keep the area clean and dry. You may cover it with a gauze bandage if it weeps or rubs against clothing; if you choose to do this, change the dressing everyday. Other instructions ? Use a heating pad, hot water bottle, or gentle massage on your back to reduce stiffness. Avoid putting heat on your incision When should you call for help? ? Call 911 anytime you think you may need emergency care. For example, call if: ? You pass out (lose consciousness). ? You have sudden chest pain and shortness of breath, or you cough upblood. ? You cannot swallow. ? You have severe pain in your neck or back. ? Call your Dr. or seek immediate medical care if: ? You have pain that does not get better after you take pain pills. ? You have loose stitches, or your incision comes open. ? You have blood or fluid draining from the incision. ? You have signs of infection, such as: 1. Increased pain, swelling, warmth, or redness. 2. Red streaks leading from the site. 3. Pus draining from the site. 4. Swollen lymph nodes in your neck or armpits. 5. A fever. ? You have severe pain in your arms. ? You have new or increased weakness or numbness in your arms. ? Watch closely for any changes in your health, and be sure to contact your doctor if: ? You do not have a bowel movement after taking a laxative. Discharge Attestations Time Spent in Discharge Care*: less than 30 min Quality Metrics Clinical Quality Measures [ No reported AMI, CVA or VTE this stay] Coding Level of Care Code Acute Code for Chg Fwd
--- NOTE | 2023-10-01 08:55 | PC.NURSE ---
Discharge pending transportation home. Sister lives in [place] per pt and has not headed this way yet.
--- NOTE | 2023-10-01 09:35 | PC.PHAR ---
pt states he takes care of his own medications-pt states his atenolol 25mg daily was dced ext shows last filled 09/12/23 90d/s-pt states he may have to restart taking- pt states he buys his kcl otc-
--- NOTE | 2023-10-01 09:43 | PC.CHAP ---
Pastoral Care Encounter/Spiritual Assessment Type of Contact [] Declined marketing segment manager visit [] Patient/Family/Request visit [] Outpatient visit [] Follow-up visit [] Physician referral [] Code/Alert [] Routine visit [] Staff referral [] Actively dying [] Patient sleeping [] Family support [] [] Out of room [] Palliative care [] [x] Receiving care in room [] Pre-surgical visit [] Trauma [] Long length of stay [] ICU visit [] Other: Relational/Emotional Strength [] Patient feels connected with others/family/visitors/staff [] Distress [] Loneliness/isolation [] Abandonment Spirituality of Patient [] Person of Brook [] Attends Scientology of their [place] [] Believes in Prayer [] Reads Bible or Restoration materials [] There are Spiritual issues to be addressed Assistant Public Defender Interventions [] Prayer [] Active listening [] Non-anxious presence [] Spiritual/emotional support [] Crisis/trauma care [] Spiritual counseling [] Bereavement support [] Provided bereavement packet [] Provided Bible/devotional materials [] Provided toy/stuffed animal, coloring book to patient or family member [] Provided Communion [] Anointing/[place] [] Salvation [] Completed spiritual assessment [] Other: Impact on Illness or Injury [] Angry [] Fearful [] Anxious [] Often cries [] Exhaustion [] Unable to work [] Unable to attend holiness [] Unable to walk/stand [] Unable to read [] Unable to drive [] Unable to eat/drink [] Unable to sleep [] Unable to be with family [] Patient intubated [] Other: Summary Time spent with patient
--- NOTE | 2023-10-01 10:14 | PC.NURSE ---
This nurse removed patients hemovac drain at 1012. Silverlon dressing was reapplied. pt tolerated well.
== END 2023-10-01 11:17 | disposition home or self-care (01) ==
LOC: MEDSURG 22:38
PROVIDERS: Admitting Provider Orthopaedic Surgery; PCP Nurse Practitioner Family; Visit Provider Orthopaedic Surgery
PROC: 0RB30ZZ Excision of Cervical Vertebral Disc, Open Approach (ICD-10-PCS; CPT 22551; principal; 2023-09-30 10:00)
DX: M47.12 Other spondylosis with myelopathy, cervical region (principal); I10 Essential (primary) hypertension; E78.5 Hyperlipidemia, unspecified; Z85.89 Personal history of malignant neoplasm of other organs and systems; Z92.3 Personal history of irradiation; J44.9 Chronic obstructive pulmonary disease, unspecified; Z87.891 Personal history of nicotine dependence
CPT/HCPCS: 20930; 22551; 22552; 22845; 22853 ×2; 51702; 72040; 76000; 97110; 97116; 97161; C1713; C1763; C9359; G0378; J0131; J0330; J0690; J1100; J1170; J2270; J2405; J2704; J3010; J3490; J7030; J7120

== ENCOUNTER → 2023-10-15 14:05 | Outpatient (BNVA) | payer MEDICARE, SELFPAY | PROVIDERS: PCP Nurse Practitioner Family; Visit Provider Orthopaedic Surgery | DX: Z98.1 Arthrodesis status (principal) | CPT/HCPCS: 99024 ==

== ENCOUNTER → 2023-10-29 12:26 | Outpatient (BNVA) | payer MEDICARE, SELFPAY | PROVIDERS: PCP Nurse Practitioner Family; Visit Provider Internal Medicine | DX: R06.02 Shortness of breath (principal); I73.9 Peripheral vascular disease, unspecified; I10 Essential (primary) hypertension; E78.5 Hyperlipidemia, unspecified; J44.9 Chronic obstructive pulmonary disease, unspecified; Z87.891 Personal history of nicotine dependence | CPT/HCPCS: 99214 ==

== ENCOUNTER → 2023-11-12 14:20 | Outpatient (BNVA) | payer MEDICARE, SELFPAY | PROVIDERS: PCP Nurse Practitioner Family; Visit Provider Orthopaedic Surgery | DX: Z98.1 Arthrodesis status (principal); M47.12 Other spondylosis with myelopathy, cervical region | CPT/HCPCS: 72040; 99024 ==

== ENCOUNTER 2023-12-18 13:31 | Outpatient (CLI) | payer MEDICARE, SELFPAY ==
--- NOTE | 2023-12-18 14:30 | MR_ITS ---
WS: [id number] MRI LUMBAR SPINE NONCONTRAST TECHNIQUE: Sagittal T1, T2 and STIR imaging. Axial T1 and T2 imaging. CLINICAL INFORMATION: back pain COMPARISON: MRI 02/13/2023 FINDINGS: Mild lumbar curve. No acute compression. No high-grade central canal stenosis. L1-L2: Normal. L2-L3: Mild annular bulging. Spinal canal and foramen are patent. Mild facet arthropathy. L3-L4: Mild annular bulging. Slight effacement of the ventral thecal sac. Mild facet arthropathy. For amen are patent. L4-L5: Mild annular bulging with slight effacement of the ventral thecal sac. Mild central canal sten osis unchanged. Impingement on the traversing LEFT greater than RIGHT L5 nerve roots. Moderate facet arthropathy. Mild RIGHT foraminal narrowing. LEFT foramen is patent. L5-S1: Mild disc bulging with osteophytic ridging. Slight effacement of the ventral thecal sac. Moder ate facet arthropathy. Mild foraminal narrowing unchanged. Visualized pelvic bony structures: Normal. Paravertebral soft tissues: Normal. MR/MR lumbar spine wo con* [id number] IMPRESSION: Overall no significant changes compared to previous. 1. Mild lumbar curve. No acute compression. 2. Slight anterolisthesis L4 on L5 unchanged. Mild central canal stenosis at t his level with narrowing of the LEFT greater than RIGHT subarticular recess. 3. Small RIGHT foraminal protrusion L4-5 with mild RIGHT L4-5 foraminal narrow ing unchanged. 4. Mild annular bulging L5-S1 with slight effacement of the ventral thecal sac . 5. Narrowing of the subarticular recess L3-4. 6. Advanced facet arthropathy L4-5
== END 2023-12-18 13:32 | disposition home or self-care (01) ==
LOC: RAD 13:31
PROVIDERS: PCP Nurse Practitioner Family; Visit Provider Orthopaedic Surgery
DX: M54.9 Dorsalgia, unspecified (principal); M48.061 Spinal stenosis, lumbar region without neurogenic claudication; M51.26 Other intervertebral disc displacement, lumbar region; M47.816 Spondylosis without myelopathy or radiculopathy, lumbar region
CPT/HCPCS: 72148

== ENCOUNTER → 2023-12-24 13:53 | Outpatient (BNVA) | payer MEDICARE, SELFPAY | PROVIDERS: PCP Nurse Practitioner Family; Visit Provider Orthopaedic Surgery | DX: M48.062 Spinal stenosis, lumbar region with neurogenic claudication (principal); Z98.1 Arthrodesis status | CPT/HCPCS: 72040; 99213 ==

== ENCOUNTER → 2024-03-24 12:45 | Outpatient (BNVA) | payer BC, MEDICAID, SELFPAY | PROVIDERS: PCP Nurse Practitioner Family; Visit Provider Orthopaedic Surgery | DX: M48.02 Spinal stenosis, cervical region (principal); Z98.1 Arthrodesis status | CPT/HCPCS: 72040 ==

== ENCOUNTER 2024-05-01 09:51 | Outpatient (CLI) | payer BC, MEDICAID, SELFPAY ==
--- NOTE | 2024-05-01 09:54 | CT_ITS ---
WS: [id number] CT ABDOMEN AND PELVIS WITH CONTRAST HISTORY: OTHER CONSTIPATION/ABDOMINAL DISTENSION TECHNIQUE: Imaging performed of the abdomen and pelvis with IV contrast. Single phase imaging of the abdomen. Coronal and sagittal reformats are submitted. All CT scans at [facility] use at [address] one of these dose optimization techniques: automated exposure control; mA and/or kV adjustment per patient size (includes targeted exams where dose is matched to clinical indication); or iterative re construction. IV CONTRAST: Omnipaque 350; 100 mL IV. Oral contrast: Yes. DLP: 661.22 mGy.cm COMPARISON: 09/25/2022 Lower thorax: Hyperinflated lungs with emphysema. Heart is normal size. Small hiatal hernia. Liver/biliary system: Normal size with a few too small to characterize hypodensities. There is a larg er slightly lobulated cyst in the RIGHT lobe measuring 2.3 x 1.7 cm which is stable. No portal vein t hrombus. Gallbladder: Status post cholecystectomy. Pancreas: Normal size pancreas and pancreatic duct. No adjacent inflammation. Spleen: Normal size spleen. No mass or infarct. Adrenal glands: Normal. Right kidney: Normal size with too small to characterize hypodensities. Nonobstructing calcifications . Left kidney: Normal size kidney with a few small cysts. The largest complex cyst from the superior po le measures 13 mm and is stable since 09/25/2022. Probably representing a complex cyst. Additional sca ttered hypodensities and nonobstructing calcifications. Aorta: Moderate atherosclerotic plaque. No aneurysm. Mesenteric arteries are patent with calcified pl aque. Moderate stenosis within the mid to distal SMA. Lymphadenopathy: None. Free fluid: None. GI tract: Normal stomach. No small bowel obstruction. Diffuse moderate constipation. The appendix has been removed. Increased fluid in the cecum but no mass identified. Mild diverticular burden in the s igmoid colon. Abdominal wall: Unremarkable abdominal wall. No hernia. Pelvis: Urinary bladder is slightly overly distended. Prostate gland is enlarged and heterogeneous wi th central enhancement. Prostate measures 4.0 x 4.3 x 5.0 cm. May be causing partial outlet obstructi on. Dense heavy calcification with components of stenosis in the iliac and femoral arteries. LEFT fem oral artery may be completely occluded. Bones: Unremarkable. CT/CT abdomen pelvis w con* [id number] IMPRESSION: 1. Mildly distended urinary bladder with prostate gland heterogeneity and enla rgement. Prostate may be causing a partial outlet obstruction. Consider biochem ical evaluation of the prostate gland for carcinoma. 2. Diverticular disease in the sigmoid colon without acute diverticulitis. 3. Mild diffuse constipation. 4. Hepatic cyst. 5. Prior cholecystectomy. 6. No ascites or adenopathy. 7. 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 Stent grafts ar e present in the iliac and femoral arteries. Cannot confirm patency of the LEFT femoral artery.
[2024-05-01] MEDS: iohexol 350 mg/mL 500 mL Btl (per mL) PO (11:33)
[2024-05-01 11:42] LABS: Blood Urea Nitrogen 4 mg/dL (8-23); Glomerular Filtration Rate 84.2 mL/min (90-130)
[2024-05-01] MEDS: iohexol 350 mg/mL 500 mL Btl (per mL) IV (11:49)
== END 2024-05-01 09:52 | disposition home or self-care (01) ==
LOC: RAD 09:51
PROVIDERS: Radiology Neuroradiology; PCP Nurse Practitioner Family; Visit Provider Nurse Practitioner Family
DX: N40.0 Benign prostatic hyperplasia without lower urinary tract symptoms (principal); J43.9 Emphysema, unspecified; K44.9 Diaphragmatic hernia without obstruction or gangrene; Q44.6 Cystic disease of liver; Z90.49 Acquired absence of other specified parts of digestive tract; N20.0 Calculus of kidney; N28.1 Cyst of kidney, acquired; I70.0 Atherosclerosis of aorta; I70.8 Atherosclerosis of other arteries; I70.202 Unspecified atherosclerosis of native arteries of extremities, left leg; K59.09 Other constipation
CPT/HCPCS: 74177; 82565; 84520

== ENCOUNTER → 2024-10-06 14:38 | Outpatient (BNVA) | payer MEDICARE, BC, SELFPAY | PROVIDERS: PCP Nurse Practitioner Family; Visit Provider Orthopaedic Surgery | DX: Z98.1 Arthrodesis status (principal) | CPT/HCPCS: 72040; 99213 ==

== ENCOUNTER → 2025-01-26 12:25 | Outpatient (BNVA) | payer MEDICARE, MEDICAID, SELFPAY | PROVIDERS: PCP Nurse Practitioner Family; Visit Provider Internal Medicine | DX: I73.9 Peripheral vascular disease, unspecified (principal); E78.5 Hyperlipidemia, unspecified; I10 Essential (primary) hypertension; Z79.02 Long term (current) use of antithrombotics/antiplatelets; Z79.82 Long term (current) use of aspirin; Z87.891 Personal history of nicotine dependence | CPT/HCPCS: 99214 ==

== ENCOUNTER 2025-05-18 10:20 | Outpatient (CLI) | payer MEDICARE, SELFPAY ==
--- NOTE | 2025-05-18 10:28 | CT_ITS ---
WS: [id number] LDCT LUNG CANCER SCREENING HISTORY: HX OF TOBACCO USE TECHNIQUE: Axial imaging performed from the apices to 1 cm below the costophrenic angles. Coronal and sagittal reformats are submitted with axial MIP series. All CT scans at [facility] use at least one of these dose optimization techniques: automated exposure control; mA and/or kV adjustment per patient size (includes targeted exams where dose is matched to clinical indication); or iterative reconstruction. DLP: 76.19 mGy.cm DIvol: Mean CTDIvol: 1.50 (mGy) COMPARISON: CT chest 02/26/2023 Diagnostic quality: Satisfactory Lungs: Biapical pleural scarring and fibrosis is stable. Bilateral calcified granulomata. There are a few very tiny micronodules in the periphery of each lung. Stable triangular 5 mm mass in the posterior RIGHT upper lobe, image 84 series 5 is stable. No new mass or nodule. No endobronchial lesions. Heart: Normal size heart with no pericardial effusion.. Mild coronary artery calcifications. Other findings: Mild ectasia and atherosclerosis thoracic aorta. No aneurysm. Normal size pulmonary artery. No adenopathy. Small hiatal hernia. Visualized adrenal glands are negative. Increase in thoracic kyphosis. CT/CT lung screening [id number] IMPRESSION: LUNG-RADS: 2-Benign Appearance or Behavior FOLLOW UP: 12 Month: Continue annual screening with LDCT OTHER FINDINGS (S MODIFIER): None.
== END 2025-05-18 10:21 | disposition home or self-care (01) ==
LOC: RAD 10:22
PROVIDERS: PCP Nurse Practitioner Family; Visit Provider Nurse Practitioner Family
DX: Z12.2 Encounter for screening for malignant neoplasm of respiratory organs (principal); Z87.891 Personal history of nicotine dependence; J84.10 Pulmonary fibrosis, unspecified; R91.8 Other nonspecific abnormal finding of lung field; I70.0 Atherosclerosis of aorta; I77.810 Thoracic aortic ectasia; K44.9 Diaphragmatic hernia without obstruction or gangrene; M40.204 Unspecified kyphosis, thoracic region
CPT/HCPCS: 71271

== ENCOUNTER 2025-05-21 07:27 | Outpatient (CLI) | payer MEDICARE, SELFPAY ==
--- NOTE | 2025-05-21 07:32 | USCV_ITS ---
Hernandez, Randall Age: 69 Gender: M : 1955 Exam Date: 05/21/2025 07:44 Ordering Phys: Alley Jamil RN DOCUMENTATION Technologist: JAYLA Exam Location: [facility] [place] Indication: SCREENING HISTORY: Diameter (cm) AP x Transverse x Length Velocity (cm/s) Waveform Prox Aorta: 1.52 x 1.41 x 33.20 Triphasic Mid Aorta: 1.27 x 1.49 x 25.00 Triphasic Distal Aorta: 1.36 x 1.40 x 23.80 Triphasic Right Iliac Prox: 0.57 x 0.86 x 95.00 Biphasic Left Iliac Prox: 0.44 x 0.75 x 92.00 Triphasic Stent Prox Landing x x Aneurysmal Sac Max x x Lt Lat Sac Dim Rt Lat Sac Dim Stent Dist Landing x x Right Iliac Stent x x Left Iliac Stent x x Right Renal Art Left Renal Art FINDINGS: CONCLUSIONS No evidence of abdominal aortic or bilateral iliac aneurysm. Moderate Atheromatous disease abdominal aorta Yordy Canales MD (Electronically Signed) Final Date: 21 May 2025 09:34 S
== END 2025-05-21 07:28 | disposition home or self-care (01) ==
LOC: RAD 07:27
PROVIDERS: PCP Nurse Practitioner Family; Visit Provider Nurse Practitioner Family
DX: Z13.6 Encounter for screening for cardiovascular disorders (principal); I70.0 Atherosclerosis of aorta
CPT/HCPCS: 76706

== ENCOUNTER 2025-06-11 09:00 | Oncology outpatient (recurring) (ONCR) | payer MEDICARE, SELFPAY ==
[2025-06-02 14:33] VITALS: BP 136/75
[2025-06-02] MEDS: iron sucrose 200 MG/100 ML BAG IV (14:34)
[2025-06-02 15:36] VITALS: BP 142/72; PULSE 57; RESP 16; TEMP 36.7; O2SAT 95
[2025-06-04] MEDS: iron sucrose 200 MG/100 ML BAG IV (09:02)
[2025-06-04 09:05] VITALS: BP 155/67; PULSE 53; TEMP 36.8; O2SAT 97
[2025-06-07] MEDS: iron sucrose 200 MG/100 ML BAG IV (13:50)
[2025-06-07 14:29] VITALS: BP 125/67; PULSE 66; RESP 17; TEMP 36.9; O2SAT 96
[2025-06-09 13:27] VITALS: BP 130/76; PULSE 57; TEMP 36.7; O2SAT 97
[2025-06-09] MEDS: iron sucrose 200 MG/100 ML BAG IV (13:39)
[2025-06-11 08:57] VITALS: BP 159/85; PULSE 70; TEMP 36.6; O2SAT 99
[2025-06-11] MEDS: iron sucrose 200 MG/100 ML BAG IV (09:08)
[2025-06-11 10:05] VITALS: BP 159/78; PULSE 58; RESP 17; TEMP 36.7; O2SAT 98
== END 2025-06-11 23:59 | disposition home or self-care (01) ==
PROVIDERS: PCP Nurse Practitioner Family; Visit Provider Nurse Practitioner Family
DX: D50.9 Iron deficiency anemia, unspecified; Z79.899 Other long term (current) drug therapy; Z53.9 Procedure and treatment not carried out, unspecified reason
CPT/HCPCS: 96365; J1756; J7050

== ENCOUNTER → 2025-07-27 13:58 | Outpatient (BNVA) | payer MEDICARE, MEDICAID, SELFPAY | PROVIDERS: PCP Nurse Practitioner Family; Visit Provider Internal Medicine | DX: I73.9 Peripheral vascular disease, unspecified (principal); I10 Essential (primary) hypertension; R07.89 Other chest pain; Z87.891 Personal history of nicotine dependence | CPT/HCPCS: 99213 ==